=== PATIENT | male | born 1960 | race Caucasian/White ===

== ENCOUNTER 2017-05-17 16:52 | Inpatient (IN) | payer MEDICARE, BC ==
[2017-05-17] MEDS ORDERED: Sodium Chloride 0.9% 1,000 ML IV ONE (18:12)
--- NOTE | 2017-05-17 18:19 | EDM.PDOC ---
ED HPI GENERAL MEDICAL PROBLEM - General Chief Complaint: General Stated Complaint: dehydration Time Seen by Provider: 05/17/17 17:00 Source of Information: Reports: Patient, Significant Other History Limitations: Reports: No Limitations - History of Present Illness INITIAL COMMENTS - FREE TEXT/NARRATIVE: Patient brought in by to be evaluated for possible dehydration. Complains of nausea/vomiting two days ago. No current emesis but has no real appetite to eat/drink for last 3 days. No bowel changes. Mild cough. No body aches or acute pain. No one else sick at home. Denies sore throat/nasal congestion. Feels tired. No other acute complaints. History of CVA with residual right sided weakness. - Related Data Allergies Allergy/AdvReac Type Severity Reaction Status Date / Time dicloxacillin AdvReac Nausea Verified 04/17/17 09:11 Home Meds: Home Meds buPROPion [buPROPion XL] 300 mg PO DAILY 06/23/14 [History] Pantoprazole [ProTONIX] 40 mg PO DAILY 07/22/14 [History] Clopidogrel Bisulfate [Clopidogrel] 75 mg PO DAILY 04/15/17 [History] LORazepam 0.5 mg PO TID PRN 04/15/17 [History] Levothyroxine Sodium [Synthroid] 75 mcg PO ACBREAKFAST 04/15/17 [History] Metoprolol Succinate 25 mg PO DAILY 04/15/17 [History] Venlafaxine HCl [Venlafaxine ER] 150 mg PO DAILY 04/15/17 [History] atorvaSTATin [Lipitor] 40 mg PO BEDTIME 04/15/17 [History] traZODone 50 mg PO BEDTIME 04/15/17 [History] Lisinopril 20 mg PO DAILY #0 04/17/17 [Rx] Tamsulosin [Flomax] 0.4 mg PO BEDTIME #0 04/17/17 [Rx] Past Medical History Cardiovascular History: Reports: Arrhythmia, High Cholesterol, Hypertension Respiratory History: Reports: None Gastrointestinal History: Reports: GERD Genitourinary History: Reports: Chronic Renal Insuffiency, Renal Disease Musculoskeletal History: Reports: Other (See Below) Other Musculoskeletal History: Bursitis Neurological History: Reports: CVA Other Neuro History: 2013 Psychiatric History: Reports: Depression Endocrine/Metabolic History: Reports: Hypothyroidism - Infectious Disease History Infectious Disease History: Reports: Measles, Mumps Social & Family History - Tobacco Use Smoking Status *Q: Never Smoker Tobacco Use Within Last Twelve Months: Snuff/Dip Years of Tobacco use: 40 - Caffeine Use Caffeine Use: Reports: Coffee - Alcohol Use Days Per Week of Alcohol Use: 7 Number of Drinks Per Day: 2 Total Drinks Per Week: 14 - Recreational Drug Use Recreational Drug Use: No ED ROS GENERAL - Review of Systems Review Of Systems: See Below Constitutional: Reports: Weakness, Fatigue, Diaphoresis, Decreased Appetite. Denies: Fever, Chills, Night Sweats HEENT: Reports: No Symptoms Respiratory: Reports: Cough. Denies: Shortness of Breath, Wheezing, Pleuritic Chest Pain, Sputum, Hemoptysis Cardiovascular: Reports: No Symptoms GI/Abdominal: Reports: Decreased Appetite, Nausea, Vomiting. Denies: Abdominal Pain, Black Stool, Bloody Stool, Constipation, Diarrhea : Reports: No Symptoms Musculoskeletal: Reports: No Symptoms Skin: Reports: No Symptoms Neurological: Reports: Pre-Existing Deficit (right sided weakness from CVA), Other ( feels patient is not as alert as per usual. No obvious confusion. ) Psychiatric: Reports: No Symptoms Hematologic/Lymphatic: Reports: No Symptoms ED EXAM, GENERAL - Physical Exam Exam: See Below General Appearance: Alert, WD/WN, No Apparent Distress Eye Exam: Bilateral Eye: EOMI, PERRL Ears: Normal External Exam, Normal Canal, Hearing Grossly Normal, Normal TMs Nose: Normal Inspection. No: Nasal Swelling, Nasal Drainage Throat/Mouth: Normal Inspection, Normal Lips, Normal Oropharynx, Normal Voice, No Airway Compromise Head: Atraumatic, Normocephalic Neck: Normal Inspection, Supple, Non-Tender, Full Range of Motion Respiratory/Chest: No Respiratory Distress, No Accessory Muscle Use, Chest Non- Tender, Wheezing (faint wheeze noted right anterior lung mid-field) Cardiovascular: Regular Rate, Rhythm, No Murmur Peripheral Pulses: 2+: Radial (L), Radial (R) GI/Abdominal: Normal Bowel Sounds, Soft, Non-Tender, No Distention (Male) Exam: Deferred Rectal (Males) Exam: Deferred Back Exam: Normal Inspection Extremities: Normal Inspection, Non-Tender, No Pedal Edema, Normal Capillary Refill Neurological: Alert, Oriented, Sensory/Motor Deficit (slight right sided droop corner of mouth, slight decrease in strength right sided extremities) Psychiatric: Normal Affect, Normal Mood Skin Exam: Warm, Dry, Intact, Normal Color Course - Vital Signs Last Recorded V/S: Last Vital Signs Temp Pulse Resp 22 H 05/17/17 16:56 BP 107/86 05/17/17 16:56 Pulse Ox 98 05/17/17 16:56 - Orders/Labs/Meds Orders: Active Orders 24 hr Category Date Time Status Chest 2V [CR] Stat Exams 05/17/17 17:24 Taken UA W/MICROSCOPIC [URIN] Stat Lab 05/17/17 17:02 Uncollected Sodium Chloride 0.9% [Normal Saline] 1,000 ml Med 05/17/17 18:12 Ordered IV .BOLUS Medication Orders Sodium Chloride (Normal Saline) 1,000 mls @ 500 mls/hr IV .BOLUS ONE Stop: 05/17/17 20:11 Labs: Laboratory Tests 05/17/17 05/17/17 Range/Units 17:05 17:05 WBC 3.3 L (4.0-10.2) K/uL RBC 3.76 L (4.33-5.41) M/uL Hgb 13.3 D (13.1-16.8) g/dL Hct 38.6 L (39.0-49.0) % MCV 102.7 H (84.0-98.0) fL MCH 35.4 H (28.2-33.3) pg MCHC 34.5 (31.7-36.0) g/dL RDW 13.1 (11.2-14.1) % Plt Count 232 (150-350) K/uL Neut % (Auto) 84.7 H (45.0-80.0) % Lymph % (Auto) 10.7 (10.0-50.0) % [place] % (Auto) 4.3 (2.0-14.0) % Eos % (Auto) 0.0 (0.0-5.0) % Baso % (Auto) 0.3 (0.0-2.0) % Neut # (Auto) 2.77 (1.40-7.00) K/uL Lymph # (Auto) 0.35 L (0.50-3.50) K/uL [place] # (Auto) 0.14 (0.00-1.00) K/uL Eos # (Auto) 0.00 (0.00-0.50) K/uL Baso # (Auto) 0.01 (0.00-0.20) K/uL Sodium 135 L (136-145) mmol/L Potassium 3.8 (3.5-5.1) mmol/L Chloride 97 L (98-107) mmol/L Carbon Dioxide 26.4 (21.0-32.0) mmol/L BUN 28 H (7-18) mg/dL Creatinine 1.26 H (0.51-1.17) mg/dL Est Cr Clr Drug Dosing 69.29 mL/min Estimated GFR (MDRD) 59 mL/min Glucose 145 H (74-106) mg/dL Calcium 9.1 (8.5-10.1) mg/dL Total Bilirubin 0.8 (0.2-1.0) mg/dL AST 24 (15-37) U/L ALT 23 (12-78) U/L Alkaline Phosphatase 162 H (46-116) IU/L Total Protein 6.6 (6.4-8.2) g/dL Albumin 2.9 L (3.4-5.0) g/dL Meds: Medications Generic Name Dose Route Start Last Admin Trade Name Freq PRN Reason Stop Dose Admin Sodium Chloride 1,000 mls @ 500 mls/hr 05/17/17 18:12 Normal Saline IV 05/17/17 20:11 .BOLUS ONE - Radiology Interpretation Free Text/Narrative:: Chest xray performed. Probable infiltrate noted on right laterally. No previous films available for comparison. - Re-Assessments/Exams Free Text/Narrative Re-Assessment/Exam: 05/17/17 18:23 WBC low. NA/CL slightly low. BUN/Cr mildly elevated. Glu 145. Suspect dehydration. Will admit for rehydration and also IV antibiotics given infiltrate. Duo Nebs planned. O2 prn to keep O2 sats above 91%. Patient noted to have sats in high 80s. No history of previous O2 requirement. Departure - Departure Time of Disposition: 18:25 Disposition: Admitted As Inpatient 64 Clinical Impression: Dehydration, mild, Renal insufficiency, Snuff user Pneumonia Qualifiers: Pneumonia type: due to unspecified organism Laterality: right Lung location: middle lobe of lung Qualified Code(s): J18.1 - Lobar pneumonia, unspecified organism Nausea & vomiting Qualifiers: Vomiting type: unspecified Vomiting Intractability: non-intractable Qualified Code(s): R11.2 - Nausea with vomiting, unspecified - Discharge Information Forms: ED Department Discharge - Problem List & Annotations (1) Dehydration, mild SNOMED Code(s): 7969106873234 Code(s): E86.0 - DEHYDRATION Status: Acute Priority: High Current Visit : Yes Annotation/Comment:: IV NS ordered. (2) Nausea & vomiting SNOMED Code(s): 60571502 Code(s): R11.2 - NAUSEA WITH VOMITING, UNSPECIFIED Status: Acute Priority : Medium Current Visit: Yes Annotation/Comment:: Will treat with Zofran Qualifiers: Vomiting type: unspecified Vomiting Intractability: non-intractable Qualified Code(s): R11.2 - Nausea with vomiting, unspecified (3) Pneumonia SNOMED Code(s): 842906604 Code(s): J18.9 - PNEUMONIA, UNSPECIFIED ORGANISM Status: Acute Priority: High Current Visit: Yes Annotation/Comment:: Uncertain if viral vs bacterial in nature. Will initiate antibiotic coverage. Qualifiers: Pneumonia type: due to unspecified organism Laterality: right Lung location: middle lobe of lung Qualified Code(s): J18.1 - Lobar pneumonia, unspecified organism (4) Renal insufficiency SNOMED Code(s): 955644390, 833457257 Code(s): N28.9 - DISORDER OF KIDNEY AND URETER, UNSPECIFIED Status: Chronic Priority: Low Current Visit: Yes (5) Snuff user SNOMED Code(s): 435637677, 075914574 Code(s): Z78.9 - OTHER SPECIFIED HEALTH STATUS Status: Chronic Priority: Low Current Visit: No (6) History of CVA with residual deficit SNOMED Code(s): 821111872 Code(s): I69.30 - UNSPECIFIED SEQUELAE OF CEREBRAL INFARCTION Status: Chronic Priority: Low Current Visit: No - Problem List Review Problem List Initiated/Reviewed/Updated: Yes - My Orders Last 24 Hours: My Active Orders 05/17/17 17:02 UA W/MICROSCOPIC [URIN] Stat 05/17/17 17:24 Chest 2V [CR] Stat 05/17/17 18:12 Sodium Chloride 0.9% [Normal Saline] 1,000 ml IV .BOLUS - Assessment/Plan Admission H&P: Please use this note as an admission H&P Last 24 Hours: My Active Orders 05/17/17 17:02 UA W/MICROSCOPIC [URIN] Stat 05/17/17 17:24 Chest 2V [CR] Stat 05/17/17 18:12 Sodium Chloride 0.9% [Normal Saline] 1,000 ml IV .BOLUS Assessment:: Nausea/emesis/cough/dehydration. Plan: Admit for IV antibiotics, neb treatments, IV rehydration.
[2017-05-17] MEDS ORDERED: Bisacodyl 5 MG Tab PO PRN (18:58)
[2017-05-17] MEDS ORDERED: Acetaminophen 325 MG Tab PO PRN (18:58)
[2017-05-17] MEDS ORDERED: Ondansetron 4 MG Tab.DIS PO PRN (18:58)
[2017-05-17] MEDS ORDERED: Magnesium Hydroxide 400 MG/5 ML Susp 30 ML Cup PO PRN (18:58)
[2017-05-17] MEDS ORDERED: Ondansetron 4 MG/2 ML SDV IVPUSH PRN (18:58)
[2017-05-17] MEDS ORDERED: Promethazine 25 MG Tab PO PRN (19:07)
[2017-05-17] MEDS ORDERED: cefTRIAXone 1 GM in Sodium Chloride 0.9% 100 ML IV SCH (19:30)
[2017-05-17] MEDS: Albuterol/Ipratropium 3.0-0.5 MG/3 ML Neb Soln NEB SCH (19:36)
[2017-05-17] MEDS ORDERED: LORazepam 0.5 MG Tab PO PRN (20:28)
[2017-05-17] MEDS: Azithromycin 500 MG in Sodium Chloride 0.9% 250 ML IV SCH (20:59)
[2017-05-17] MEDS ORDERED: Tamsulosin 0.4 MG Cap.ER PO SCH (21:00)
[2017-05-17] MEDS: traZODone 50 MG Tab PO SCH (21:07)
[2017-05-17] MEDS: atorvaSTATin 40 MG Tab PO SCH (21:07)
[2017-05-17] MEDS: Sodium Chloride 0.9% 1,000 ML IV SCH (22:39)
[2017-05-18] MEDS ORDERED: methylPREDNISolone Sodium Succinate 125 MG/2 ML SDV IVPUSH ONE (01:21)
[2017-05-18] MEDS: Albuterol/Ipratropium 3.0-0.5 MG/3 ML Neb Soln NEB SCH ×4 (01:22→19:19)
[2017-05-18] MEDS ORDERED: Sodium Chloride 0.9% 1,000 ML IV ONE (01:25)
[2017-05-18 08:09] LABS: CHLORIDE,CL 106 mmol/L (98-107); SODIUM,NA 140 mmol/L (136-145)
--- NOTE | 2017-05-18 08:48 | PCM.PN ---
- General Info Date of Service: 05/18/17 Admission Dx/Problem (Free Text): 1. Pneumonia 2. Dehydration 3. Nausea/emesis with probable viral GE Functional Status: Reports: pain controlled, tolerating diet, ambulating (With walker). Denies: urinating, new symptoms, incentive spirometry (Although to be initiated today) Pain Score: 0 - Review of Systems General: Reports: Weakness (Stable chronic right-sided hemiparesis secondary to previous CVA), Chills (Yesterday evening), Night Sweats (Yesterday evening), Appetite (Good). Denies: Fever (Maximum fever of 37.4 yesterday with patient afebrile this morning) HEENT: Reports: no symptoms. Denies: dysphasia, ear pain, eye pain, headaches, sore throat, rhinitis, visual changes Pulmonary: Reports: cough, sputum (Minimal). Denies: shortness of breath, pleuritic chest pain, hemoptysis, wheezing Cardiovascular: Reports: Dyspnea on Exertion (Secondary to pneumonia). Denies: Chest Pain, Palpitations, Orthopnea, PND, Edema, Lightheadedness Gastrointestinal: Reports: Other (No bowel movement since admission). Denies: Abdominal pain, Constipation, Decreased appetite, Diarrhea, Difficulty swallowing, Flatus, Hematochezia, Melena, Nausea, Vomiting Genitourinary: Reports: no symptoms. Denies: dysuria, frequency, burning, urgency, incontinence, hematuria, flank pain Musculoskeletal: Reports: no symptoms. Denies: neck pain, shoulder pain, arm pain, back pain Skin: Reports: no symptoms. Denies: diaphoresis, pruritis, rash Neurological: Reports: Pre-Existing Deficit (Stable right-sided hemiparesis), Difficulty Walking (Walker use required secondary to CVA), Weakness (Stable right hemiparesis), Gait Disturbance (As above). Denies: Confusion, Dizziness, Headache, Numbness, Paresthesia, Syncope, Tingling, Change in Speech Psychiatric: Reports: no symptoms. Denies: confusion, depression, anxiety, agitation, hallucinations - Patient Data Vitals - most recent: Last Vital Signs Temp 36.4 C 05/18/17 06:58 Pulse 87 05/18/17 06:58 Resp 18 05/18/17 06:58 BP 114/74 05/18/17 06:58 Pulse Ox 98 05/18/17 06:58 Vital Signs - 24 hr 05/17/17 05/17/17 05/17/17 16:56 18:32 19:02 Temperature [ Oral] Pulse, 116 H Peripheral [ Right Pulse Oximetry] Respiratory 22 H 20 Rate Blood Pressure 107/86 100/66 [Right Upper Arm] O2 Sat by Pulse 98 98 95 Oximetry 05/17/17 05/18/17 05/18/17 19:05 01:05 04:00 Temperature [ 36.5 C 37.4 C 37.2 C Oral] Pulse, 93 90 Peripheral [ Right Pulse Oximetry] Respiratory 16 16 Rate Blood Pressure 85/51 L 109/69 [Right Upper Arm] O2 Sat by Pulse 93 L 94 L Oximetry 05/18/17 06:58 Temperature [ 36.4 C Oral] Pulse, 87 Peripheral [ Right Pulse Oximetry] Respiratory 18 Rate Blood Pressure 114/74 [Right Upper Arm] O2 Sat by Pulse 98 Oximetry Weight - most recent: 87.09 kg I&O - last 24 hours: Intake & Output 05/17/17 05/18/17 05/18/17 22:59 06:59 14:59 Intake Total 750 1600 360 Output Total 450 Balance 750 1600 -90 Imaging Impressions - last 24 hrs: Chest x-ray, PA and lateral, shows evidence of moderate COPD changes with mild right lower lobe and right middle lobe pulmonary infiltrates. No pneumothorax, cardiomegaly, CHF, etc. Probable pulmonary hypertension secondary to his COPD with mild osteoarthritic changes also noted Lab Results last 24 hrs: Laboratory Results - last 24 hr 05/18/17 05/18/17 05/18/17 Range/Units 01:29 03:40 07:40 WBC 7.1 (4.0-10.2) K/uL RBC 3.06 L (4.33-5.41) M/uL Hgb 10.7 L D (13.1-16.8) g/dL Hct 32.0 L (39.0-49.0) % MCV 104.6 H (84.0-98.0) fL MCH 35.0 H (28.2-33.3) pg MCHC 33.4 (31.7-36.0) g/dL RDW 13.1 (11.2-14.1) % Plt Count 177 (150-350) K/uL Neut % (Auto) 92.9 H (45.0-80.0) % Lymph % (Auto) 4.7 L (10.0-50.0) % [place] % (Auto) 2.4 (2.0-14.0) % Eos % (Auto) 0.0 (0.0-5.0) % Baso % (Auto) 0.0 (0.0-2.0) % Neut # (Auto) 6.58 (1.40-7.00) K/uL Lymph # (Auto) 0.33 L (0.50-3.50) K/uL [place] # (Auto) 0.17 (0.00-1.00) K/uL Eos # (Auto) 0.00 (0.00-0.50) K/uL Baso # (Auto) 0.00 (0.00-0.20) K/uL Sodium (136-145) mmol/L Potassium (3.5-5.1) mmol/L Chloride (98-107) mmol/L Carbon Dioxide (21.0-32.0) mmol/L BUN (7-18) mg/dL Creatinine (0.51-1.17) mg/dL Est Cr Clr Drug Dosing mL/min Estimated GFR (MDRD) mL/min Glucose (74-106) mg/dL Lactic Acid 2.2 H (0.4-2.0) mmol/L Calcium (8.5-10.1) mg/dL Total Bilirubin (0.2-1.0) mg/dL AST (15-37) U/L ALT (12-78) U/L Alkaline Phosphatase (46-116) IU/L Total Protein (6.4-8.2) g/dL Albumin (3.4-5.0) g/dL Specimen Type Urincc Urine Color Dark yellow Urine Appearance Clear Urine pH 6.0 (5.0-9.0) Ur Specific [place] <= 1.005 (1.005-1.030) Urine Protein Negative (NEGATIVE) mg/dL Urine Glucose (UA) Negative (NEGATIVE) mg/dL Urine Ketones Negative (NEGATIVE) mg/dL Urine Occult Blood Negative (NEGATIVE) Urine Nitrite Negative (NEGATIVE) Urine Bilirubin Negative (NEGATIVE) Urine Urobilinogen 0.2 (0.2-1.0) E.U./dL Ur Leukocyte Esterase Negative (NEGATIVE) Urine RBC 0-5 /HPF Urine WBC 0-5 /HPF Ur Epithelial Cells Rare /LPF Urine Bacteria Rare (NONE TO FEW) /HPF 05/18/17 Range/Units 07:40 WBC (4.0-10.2) K/uL RBC (4.33-5.41) M/uL Hgb (13.1-16.8) g/dL Hct (39.0-49.0) % MCV (84.0-98.0) fL MCH (28.2-33.3) pg MCHC (31.7-36.0) g/dL RDW (11.2-14.1) % Plt Count (150-350) K/uL Neut % (Auto) (45.0-80.0) % Lymph % (Auto) (10.0-50.0) % [place] % (Auto) (2.0-14.0) % Eos % (Auto) (0.0-5.0) % Baso % (Auto) (0.0-2.0) % Neut # (Auto) (1.40-7.00) K/uL Lymph # (Auto) (0.50-3.50) K/uL [place] # (Auto) (0.00-1.00) K/uL Eos # (Auto) (0.00-0.50) K/uL Baso # (Auto) (0.00-0.20) K/uL Sodium 140 (136-145) mmol/L Potassium 4.4 (3.5-5.1) mmol/L Chloride 106 (98-107) mmol/L Carbon Dioxide 25.9 (21.0-32.0) mmol/L BUN 22 H (7-18) mg/dL Creatinine 1.08 (0.51-1.17) mg/dL Est Cr Clr Drug Dosing 80.83 mL/min Estimated GFR (MDRD) > 60 mL/min Glucose 147 H (74-106) mg/dL Lactic Acid (0.4-2.0) mmol/L Calcium 8.1 L (8.5-10.1) mg/dL Total Bilirubin 0.6 (0.2-1.0) mg/dL AST 23 (15-37) U/L ALT 19 (12-78) U/L Alkaline Phosphatase 115 (46-116) IU/L Total Protein 5.7 L (6.4-8.2) g/dL Albumin 2.3 L (3.4-5.0) g/dL Specimen Type Urine Color Urine Appearance Urine pH (5.0-9.0) Ur Specific [place] (1.005-1.030) Urine Protein (NEGATIVE) mg/dL Urine Glucose (UA) (NEGATIVE) mg/dL Urine Ketones (NEGATIVE) mg/dL Urine Occult Blood (NEGATIVE) Urine Nitrite (NEGATIVE) Urine Bilirubin (NEGATIVE) Urine Urobilinogen (0.2-1.0) E.U./dL Ur Leukocyte Esterase (NEGATIVE) Urine RBC /HPF Urine WBC /HPF Ur Epithelial Cells /LPF Urine Bacteria (NONE TO FEW) /HPF Laboratory Tests 05/17/17 05/17/17 05/18/17 Range/Units 17:05 17:05 01:29 WBC 3.3 L (4.0-10.2) K/uL RBC 3.76 L (4.33-5.41) M/uL Hgb 13.3 D (13.1-16.8) g/dL Hct 38.6 L (39.0-49.0) % MCV 102.7 H (84.0-98.0) fL MCH 35.4 H (28.2-33.3) pg MCHC 34.5 (31.7-36.0) g/dL RDW 13.1 (11.2-14.1) % Plt Count 232 (150-350) K/uL Neut % (Auto) 84.7 H (45.0-80.0) % Lymph % (Auto) 10.7 (10.0-50.0) % [place] % (Auto) 4.3 (2.0-14.0) % Eos % (Auto) 0.0 (0.0-5.0) % Baso % (Auto) 0.3 (0.0-2.0) % Neut # (Auto) 2.77 (1.40-7.00) K/uL Lymph # (Auto) 0.35 L (0.50-3.50) K/uL [place] # (Auto) 0.14 (0.00-1.00) K/uL Eos # (Auto) 0.00 (0.00-0.50) K/uL Baso # (Auto) 0.01 (0.00-0.20) K/uL Sodium 135 L (136-145) mmol/L Potassium 3.8 (3.5-5.1) mmol/L Chloride 97 L (98-107) mmol/L Carbon Dioxide 26.4 (21.0-32.0) mmol/L BUN 28 H (7-18) mg/dL Creatinine 1.26 H (0.51-1.17) mg/dL Est Cr Clr Drug Dosing 69.29 mL/min Estimated GFR (MDRD) 59 mL/min Glucose 145 H (74-106) mg/dL Lactic Acid 2.2 H (0.4-2.0) mmol/L Calcium 9.1 (8.5-10.1) mg/dL Total Bilirubin 0.8 (0.2-1.0) mg/dL AST 24 (15-37) U/L ALT 23 (12-78) U/L Alkaline Phosphatase 162 H (46-116) IU/L Total Protein 6.6 (6.4-8.2) g/dL Albumin 2.9 L (3.4-5.0) g/dL Specimen Type Urine Color Urine Appearance Urine pH (5.0-9.0) Ur Specific [place] (1.005-1.030) Urine Protein (NEGATIVE) mg/dL Urine Glucose (UA) (NEGATIVE) mg/dL Urine Ketones (NEGATIVE) mg/dL Urine Occult Blood (NEGATIVE) Urine Nitrite (NEGATIVE) Urine Bilirubin (NEGATIVE) Urine Urobilinogen (0.2-1.0) E.U./dL Ur Leukocyte Esterase (NEGATIVE) Urine RBC /HPF Urine WBC /HPF Ur Epithelial Cells /LPF Urine Bacteria (NONE TO FEW) /HPF 05/18/17 05/18/17 05/18/17 Range/Units 03:40 07:40 07:40 WBC 7.1 (4.0-10.2) K/uL RBC 3.06 L (4.33-5.41) M/uL Hgb 10.7 L D (13.1-16.8) g/dL Hct 32.0 L (39.0-49.0) % MCV 104.6 H (84.0-98.0) fL MCH 35.0 H (28.2-33.3) pg MCHC 33.4 (31.7-36.0) g/dL RDW 13.1 (11.2-14.1) % Plt Count 177 (150-350) K/uL Neut % (Auto) 92.9 H (45.0-80.0) % Lymph % (Auto) 4.7 L (10.0-50.0) % [place] % (Auto) 2.4 (2.0-14.0) % Eos % (Auto) 0.0 (0.0-5.0) % Baso % (Auto) 0.0 (0.0-2.0) % Neut # (Auto) 6.58 (1.40-7.00) K/uL Lymph # (Auto) 0.33 L (0.50-3.50) K/uL [place] # (Auto) 0.17 (0.00-1.00) K/uL Eos # (Auto) 0.00 (0.00-0.50) K/uL Baso # (Auto) 0.00 (0.00-0.20) K/uL Sodium 140 (136-145) mmol/L Potassium 4.4 (3.5-5.1) mmol/L Chloride 106 (98-107) mmol/L Carbon Dioxide 25.9 (21.0-32.0) mmol/L BUN 22 H (7-18) mg/dL Creatinine 1.08 (0.51-1.17) mg/dL Est Cr Clr Drug Dosing 80.83 mL/min Estimated GFR (MDRD) > 60 mL/min Glucose 147 H (74-106) mg/dL Lactic Acid (0.4-2.0) mmol/L Calcium 8.1 L (8.5-10.1) mg/dL Total Bilirubin 0.6 (0.2-1.0) mg/dL AST 23 (15-37) U/L ALT 19 (12-78) U/L Alkaline Phosphatase 115 (46-116) IU/L Total Protein 5.7 L (6.4-8.2) g/dL Albumin 2.3 L (3.4-5.0) g/dL Specimen Type Urincc Urine Color Dark yellow Urine Appearance Clear Urine pH 6.0 (5.0-9.0) Ur Specific [place] <= 1.005 (1.005-1.030) Urine Protein Negative (NEGATIVE) mg/dL Urine Glucose (UA) Negative (NEGATIVE) mg/dL Urine Ketones Negative (NEGATIVE) mg/dL Urine Occult Blood Negative (NEGATIVE) Urine Nitrite Negative (NEGATIVE) Urine Bilirubin Negative (NEGATIVE) Urine Urobilinogen 0.2 (0.2-1.0) E.U./dL Ur Leukocyte Esterase Negative (NEGATIVE) Urine RBC 0-5 /HPF Urine WBC 0-5 /HPF Ur Epithelial Cells Rare /LPF Urine Bacteria Rare (NONE TO FEW) /HPF [place] Results last 24 hrs: Sputum yet to be obtained Med Orders - Current: Current Medications Acetaminophen (Tylenol) 650 mg PO Q4H PRN PRN Reason: Pain (Mild 1-3)/fever Last Admin: 05/18/17 01:22 Dose: 650 mg Albuterol/Ipratropium (Duoneb 3.0-0.5 Mg/3 Ml) 3 ml NEB Q6HRRT [facility] Last Admin: 05/18/17 08:17 Dose: 3 ml Atorvastatin Calcium (Lipitor) 40 mg PO BEDTIME [facility] Last Admin: 05/17/17 21:07 Dose: 40 mg Bisacodyl (Dulcolax) 5 mg PO DAILY PRN PRN Reason: Constipation Ceftriaxone Sodium 1 gm/ (Sodium Chloride) 100 mls @ 200 mls/hr IV Q24H [facility] Last Admin: 05/17/17 19:36 Dose: 200 mls/hr Azithromycin 500 mg/ Sodium (Chloride) 250 mls @ 250 mls/hr IV Q24H [facility] Last Admin: 05/17/17 20:59 Dose: 250 mls/hr Sodium Chloride (Normal Saline) 1,000 mls @ 125 mls/hr IV ASDIRECTED [facility] Last Admin: 05/17/17 22:39 Dose: 125 mls/hr Lisinopril (Prinivil) 20 mg PO DAILY [facility] Lorazepam (Ativan) 0.5 mg PO TID PRN PRN Reason: Agitation Magnesium Hydroxide (Milk Of Magnesia) 30 ml PO Q12H PRN PRN Reason: Constipation Promethazine HCl (Phenergan) 25 mg PO Q6H PRN PRN Reason: Nausea/Vomiting Tamsulosin HCl (Flomax) 0.4 mg PO BEDTIME [facility] Last Admin: 05/17/17 21:06 Dose: 0.4 mg Trazodone HCl (Trazodone) 50 mg PO BEDTIME [facility] Last Admin: 05/17/17 21:07 Dose: 50 mg Discontinued Medications Sodium Chloride (Normal Saline) 1,000 mls @ 500 mls/hr IV .BOLUS ONE Stop: 05/17/17 20:11 Last Admin: 05/17/17 18:33 Dose: 500 mls/hr Sodium Chloride (Normal Saline) 1,000 mls @ 500 mls/hr IV .BOLUS ONE Stop: 05/18/17 03:24 Last Admin: 05/18/17 01:35 Dose: 500 mls/hr Methylprednisolone Sodium Succinate (Solu-Medrol) 125 mg IVPUSH ONETIME ONE Stop: 05/18/17 01:22 Last Admin: 05/18/17 01:35 Dose: 125 mg Ondansetron HCl (Zofran Odt) 4 mg PO Q6H PRN PRN Reason: Nausea/Vomiting Ondansetron HCl (Zofran) 4 mg IVPUSH Q6H PRN PRN Reason: Nausea/Vomiting - Exam Quality Assessment: supplemental oxygen, DVT prophylaxis. No: central line/PICC , urine catheter, skin breakdown, restraints General: alert, oriented, cooperative, no acute distress HEENT: Pupils equal, Pupils reactive, EOMI, Mucous membr. moist/pink Neck: supple, trachea midline, no JVD, no thyromegaly. No: lymphadenopathy Lungs: Normal respiratory effort, Rales (Moderate bilateral basilar rales). No : Rhonchi, Rub, Stridor, Wheezing Cardiovascular: Regular Rate, Regular Rhythm, No Murmurs. No: Gallops, Rubs Abdomen: bowel sounds present, soft, no tenderness, no distension. No: guarding , CVA tenderness (Male) Exam: Deferred Back Exam: Normal Inspection, Full Range of Motion. No: CVA Tenderness (L), CVA Tenderness (R), Muscle Spasm Peripheral Pulses: 2+: Radial (L), Radial (R), Dorsalis Pedis (L), Dorsalis Pedis (R) Skin: warm, dry, intact. No: rash, ecchymosis Neurological: no new focal deficit, other (Stable moderate right-sided hemiparesis) Psy/Mental Status: alert, normal affect, normal mood. No: agitated, suicidal ideation, homicidal ideation, hallucinations - Problem List & Annotations (1) Pneumonia SNOMED Code(s): 528444031 Code(s): J18.9 - PNEUMONIA, UNSPECIFIED ORGANISM Status: Acute Priority: High Current Visit: Yes Qualifiers: Pneumonia type: due to unspecified organism Laterality: right Lung location: middle lobe of lung Qualified Code(s): J18.1 - Lobar pneumonia, unspecified organism Annotation/Comment:: Sputum specimen has yet to be collected. Continue IV Rocephin, however increased to a every 12 hour basis. Continue IV Zithromax for now. Consider additional IV clindamycin or vancomycin therapy, if symptoms remain refractory to therapy and/or lactic acid remains elevated. Dr. Zaragoza resumes care in the a.m. (2) Anemia SNOMED Code(s): 679178707 Code(s): D64.9 - ANEMIA, UNSPECIFIED Status: Acute Priority: Medium Current Visit: Yes Onset Date: 05/18/17 Qualifiers: Anemia type: unspecified type Qualified Code(s): D64.9 - Anemia, unspecified Annotation/Comment:: Newly diagnosed mild to moderate moderate anemia today possibly secondary to rehydration effect with no evidence of abdominal pain, acute GI bleed, etc.. Note history of peptic reflux disease with workup including a medical, iron studies, H. pylori, vitamin B-12, etc. Further workup depending on his clinical course. (3) Hyperglycemia SNOMED Code(s): 30468810 Code(s): R73.9 - HYPERGLYCEMIA, UNSPECIFIED Status: Acute Priority: Medium Current Visit: Yes Onset Date: ~05/17/17 Annotation/Comment:: No previous history of diabetes. Glycosylated hemoglobin was normal at 5.1 mg percent on 04/20/17. Patient is already on a heart healthy diet secondary to his hyperlipidemia and previous CVA (4) Hypertension SNOMED Code(s): 64379726 Code(s): I10 - ESSENTIAL (PRIMARY) HYPERTENSION Status: Chronic Priority : Medium Current Visit: Yes Qualifiers: Hypertension type: essential hypertension Qualified Code(s): I10 - Essential (primary) hypertension Annotation/Comment:: Blood pressures somewhat low yesterday however significantly improved this morning after IV hydration. Continue IV fluids for now. His home medications will be resumed with caution with medication list reconciliation conducted by me this morning (5) Peptic reflux disease SNOMED Code(s): 38177322 Code(s): K21.9 - GASTRO-ESOPHAGEAL REFLUX DISEASE WITHOUT ESOPHAGITIS Status: Chronic Priority: Medium Current Visit: Yes Annotation/Comment:: Stable by history with further workup as above. Initiate high-dose IV Protonix therapy secondary to Lovenox therapy as below. Note that patient did already receive one dose of IV Solu-Medrol yesterday. Patient may benefit from EGD and/ or additional colonoscopy secondary to his anemia as above (6) Mixed anxiety depressive disorder SNOMED Code(s): 468862401 Code(s): F41.8 - OTHER SPECIFIED ANXIETY DISORDERS Status: Chronic Priority: Medium Current Visit: Yes Annotation/Comment:: Stable by history. Resume home meds as above (7) Lactic acid increased SNOMED Code(s): 06846546 Code(s): E87.2 - ACIDOSIS Status: Acute Priority: High Current Visit: Yes Onset Date: 05/18/17 Annotation/Comment:: Somewhat increased lactic acid this morning. Repeat in the a.m. Pneumonia, clinically improving, although slowly. No clinical evidence of sepsis to this point with repeat lactic acid tomorrow. (8) Hypoalbuminemia SNOMED Code(s): 877755242 Code(s): E88.09 - OTH DISORDERS OF PLASMA-PROTEIN METABOLISM, NEC Status: Acute Priority: Medium Current Visit: Yes Onset Date: 05/18/17 Annotation/Comment:: Newly diagnosed. Add high-protein Glucerna supplements as snacks with close follow-up by his regular provider on an outpatient basis (9) Hypocalcemia SNOMED Code(s): 2258182 Code(s): E83.51 - HYPOCALCEMIA Status: Acute Priority: Medium Current Visit: Yes Onset Date: 05/18/17 Annotation/Comment:: Observe for now. OTC Tums at bedtime for now secondary to his history of peptic ulcer disease (10) Dehydration, mild SNOMED Code(s): 4540996407700 Code(s): E86.0 - DEHYDRATION Status: Acute Priority: High Current Visit : Yes Onset Date: 05/17/17 Annotation/Comment:: Continue IV fluids as above. (11) Nausea & vomiting SNOMED Code(s): 26005967 Code(s): R11.2 - NAUSEA WITH VOMITING, UNSPECIFIED Status: Acute Priority : Medium Current Visit: Yes Onset Date: 05/17/17 Qualifiers: Vomiting type: unspecified Vomiting Intractability: non-intractable Qualified Code(s): R11.2 - Nausea with vomiting, unspecified Annotation/Comment:: Resolved this morning. Patient on when necessary Phenergan with change to Zofran secondary to his borderline constipation (12) Renal insufficiency SNOMED Code(s): 382910803, 026103972 Code(s): N28.9 - DISORDER OF KIDNEY AND URETER, UNSPECIFIED Status: Chronic Priority: Medium Current Visit: Yes Annotation/Comment:: BUN/ creatinine normal today with IV hydration. Repeat labs in the a.m. (13) History of CVA with residual deficit SNOMED Code(s): 527428996 Code(s): I69.30 - UNSPECIFIED SEQUELAE OF CEREBRAL INFARCTION Status: Chronic Priority: Medium Current Visit: No Annotation/Comment:: Initiate incentive spirometry secondary to pneumonia and previous history of CVA. Neurological status stable by patient history. PT and OT consultation secondary to some generalized weakness from current infection. Secondary to his previous CVA he is at significant risk for DVT with subcutaneous Lovenox as DVT prophylaxis to be initiated this morning with caution secondary to his anemia as above. His previous Plavix therapy will be held for now with resumption at discharge (14) Snuff user SNOMED Code(s): 591005337, 589526933 Code(s): Z78.9 - OTHER SPECIFIED HEALTH STATUS Status: Chronic Priority: Medium Current Visit: No Annotation/Comment:: Tobacco cessation information to be provided at discharge with use of Nicorette gum beneficial in this patient (15) COPD (chronic obstructive pulmonary disease) SNOMED Code(s): 59643735 Code(s): J44.9 - CHRONIC OBSTRUCTIVE PULMONARY DISEASE, UNSPECIFIED Status : Acute Priority: Medium Current Visit: Yes Onset Date: ~05/18/17 Qualifiers: COPD type: COPD with acute lower respiratory infection Qualified Code(s): J44.0 - Chronic obstructive pulmonary disease with acute lower respiratory infection Annotation/Comment:: Evidence of COPD by chest x-ray. Patient may benefit from PFTs after resolution of current infection. Continue nebulizer therapy with additional Mucinex DM as a mucolytic agent. (16) Hyperlipidemia SNOMED Code(s): 14166740 Code(s): E78.5 - HYPERLIPIDEMIA, UNSPECIFIED Status: Acute Priority: Medium Current Visit: Yes Qualifiers: Hyperlipidemia type: unspecified Qualified Code(s): E78.5 - Hyperlipidemia , unspecified Annotation/Comment:: Currently under therapy - Problem List Review Problem List Initiated/Reviewed/Updated: Yes - Assessment Assessment:: As above - Plan Plan:: As above. Extensive precautions were given to the patient, who is in agreement with the treatment plan. Dr. Zaragoza resumes care in the a.m. with probable additional 2-3 days of hospitalization
[2017-05-18] MEDS ORDERED: Albuterol/Ipratropium 3.0-0.5 MG/3 ML Neb Soln NEB PRN (09:21)
[2017-05-18] MEDS ORDERED: LORazepam 0.5 MG Tab PO PRN (09:25)
[2017-05-18] MEDS ORDERED: Albuterol 0.083% 2.5 MG/3 ML Neb Soln INH PRN (09:30)
[2017-05-18] MEDS: cefTRIAXone 1 GM in Sodium Chloride 0.9% 100 ML IV SCH ×2 (09:52→21:37)
[2017-05-18] MEDS: Enoxaparin 40 MG/0.4 ML Syringe SUBCUT SCH (09:52)
[2017-05-18] MEDS: Pantoprazole 40 MG Vial IVPUSH SCH ×2 (09:52→21:37)
[2017-05-18] MEDS: Dextromethorphan/guaiFENesin 600-30 MG Tab.ER PO SCH ×2 (09:52→18:03)
[2017-05-18] MEDS ORDERED: Ondansetron 4 MG/2 ML SDV IVPUSH PRN (10:00)
[2017-05-18] MEDS: Sodium Chloride 0.9% 1,000 ML IV SCH ×2 (10:00→19:18)
[2017-05-18] MEDS: Folic Acid 1 MG Tab PO SCH (11:49)
[2017-05-18] MEDS: Ferrous Sulfate 325 MG Tab PO SCH (18:03)
[2017-05-18] MEDS: traZODone 50 MG Tab PO SCH (19:14)
[2017-05-18] MEDS: Lisinopril 20 MG Tab PO SCH (19:14)
[2017-05-18] MEDS: Azithromycin 500 MG in Sodium Chloride 0.9% 250 ML IV SCH (19:14)
[2017-05-18] MEDS: Calcium Carbonate 750 MG Tab.Chew PO SCH (19:19)
[2017-05-18] MEDS: Tamsulosin 0.4 MG Cap.ER PO SCH (19:19)
[2017-05-18] MEDS: atorvaSTATin 40 MG Tab PO SCH (19:19)
[2017-05-18] MEDS ORDERED: Non-Formulary Medication 1 Each (Lisinopril [Lisinopril] 20 MG) PO SCH (20:00)
[2017-05-18] MEDS ORDERED: traZODone 50 MG Tab PO SCH (20:00)
[2017-05-18] MEDS ORDERED: atorvaSTATin 40 MG Tab PO SCH (20:00)
[2017-05-19] MEDS: Albuterol/Ipratropium 3.0-0.5 MG/3 ML Neb Soln NEB SCH ×4 (02:14→19:25)
[2017-05-19] MEDS: Sodium Chloride 0.9% 1,000 ML IV SCH (04:58)
[2017-05-19] MEDS ORDERED: Levothyroxine 75 MCG Tab PO SCH (07:30)
[2017-05-19] MEDS: buPROPion 150 MG Tab.ER PO SCH (07:50)
[2017-05-19] MEDS: Metoprolol Succinate 25 MG Tab.ER PO SCH (07:50)
[2017-05-19] MEDS: Venlafaxine 75 MG Cap.ER PO SCH (07:50)
[2017-05-19] MEDS: Dextromethorphan/guaiFENesin 600-30 MG Tab.ER PO SCH ×2 (07:50→18:22)
[2017-05-19] MEDS: Lisinopril 20 MG Tab PO SCH (07:51)
[2017-05-19] MEDS: Levothyroxine 75 MCG Tab PO SCH (07:51)
[2017-05-19] MEDS: Folic Acid 1 MG Tab PO SCH (07:51)
[2017-05-19] MEDS: Enoxaparin 40 MG/0.4 ML Syringe SUBCUT SCH (07:52)
[2017-05-19 07:56] LABS: CHLORIDE,CL 109 mmol/L (98-107); SODIUM,NA 142 mmol/L (136-145)
[2017-05-19] MEDS ORDERED: Sodium Chloride 0.9% 10 ML Syringe FLUSH PRN (08:03)
[2017-05-19] MEDS: Pantoprazole 40 MG Vial IVPUSH SCH ×2 (09:16→20:58)
[2017-05-19] MEDS: cefTRIAXone 1 GM in Sodium Chloride 0.9% 100 ML IV SCH ×2 (09:17→20:58)
[2017-05-19] MEDS ORDERED: Furosemide 20 MG/2 ML VIAL IVPUSH ONE (11:49)
[2017-05-19] MEDS ORDERED: Pantoprazole 40 MG Vial IVPUSH ONE (14:17)
--- NOTE | 2017-05-19 14:29 | PCM.PN ---
- General Info Date of Service: 05/19/17 Admission Dx/Problem (Free Text): 1. Pneumonia 2. Dehydration 3. Nausea/emesis with probable viral GE Functional Status: Reports: pain controlled, tolerating diet, ambulating, urinating - Review of Systems General: Reports: No Symptoms HEENT: Reports: no symptoms Pulmonary: Reports: no symptoms Cardiovascular: Reports: No Symptoms Gastrointestinal: Reports: Abdominal pain. Denies: Diarrhea, Nausea, Vomiting Genitourinary: Reports: no symptoms Musculoskeletal: Reports: no symptoms Skin: Reports: no symptoms Neurological: Reports: No Symptoms Psychiatric: Reports: no symptoms - Patient Data Vitals - most recent: Last Vital Signs Temp 36.7 C 05/19/17 12:00 Pulse 81 05/19/17 12:00 Resp 22 H 05/19/17 12:00 BP 147/80 H 05/19/17 12:00 Pulse Ox 100 05/19/17 12:00 Weight - most recent: 89.176 kg I&O - last 24 hours: Intake & Output 05/18/17 05/19/17 05/19/17 22:59 06:59 14:59 Intake Total 1626 1595 384 Output Total 150 1000 950 Balance 1476 595 -566 Lab Results last 24 hrs: Laboratory Results - last 24 hr 05/18/17 05/19/17 05/19/17 Range/Units 01:29 07:20 07:20 WBC 4.6 (4.0-10.2) K/uL RBC 2.77 L (4.33-5.41) M/uL Hgb 9.8 L (13.1-16.8) g/dL Hct 29.2 L (39.0-49.0) % MCV 105.4 H (84.0-98.0) fL MCH 35.4 H (28.2-33.3) pg MCHC 33.6 (31.7-36.0) g/dL RDW 13.0 (11.2-14.1) % Plt Count 179 (150-350) K/uL Neut % (Auto) 84.7 H (45.0-80.0) % Lymph % (Auto) 8.0 L (10.0-50.0) % [place] % (Auto) 7.1 (2.0-14.0) % Eos % (Auto) 0.2 (0.0-5.0) % Baso % (Auto) 0.0 (0.0-2.0) % Neut # (Auto) 3.93 (1.40-7.00) K/uL Lymph # (Auto) 0.37 L (0.50-3.50) K/uL [place] # (Auto) 0.33 (0.00-1.00) K/uL Eos # (Auto) 0.01 (0.00-0.50) K/uL Baso # (Auto) 0.00 (0.00-0.20) K/uL Sodium 142 (136-145) mmol/L Potassium 3.2 L (3.5-5.1) mmol/L Chloride 109 H (98-107) mmol/L Carbon Dioxide 24.8 (21.0-32.0) mmol/L BUN 15 (7-18) mg/dL Creatinine 0.93 (0.51-1.17) mg/dL Est Cr Clr Drug Dosing 94.00 mL/min Estimated GFR (MDRD) > 60 mL/min Glucose 107 H (74-106) mg/dL Lactic Acid (0.4-2.0) mmol/L Calcium 7.9 L (8.5-10.1) mg/dL Magnesium 1.5 L (1.8-2.4) mg/dL Transferrin 140 L (203-362) mg/dL Total Bilirubin 0.3 (0.2-1.0) mg/dL AST 19 (15-37) U/L ALT 18 (12-78) U/L Alkaline Phosphatase 102 (46-116) IU/L Total Protein 5.4 L (6.4-8.2) g/dL Albumin 2.1 L (3.4-5.0) g/dL 05/19/17 Range/Units 07:20 WBC (4.0-10.2) K/uL RBC (4.33-5.41) M/uL Hgb (13.1-16.8) g/dL Hct (39.0-49.0) % MCV (84.0-98.0) fL MCH (28.2-33.3) pg MCHC (31.7-36.0) g/dL RDW (11.2-14.1) % Plt Count (150-350) K/uL Neut % (Auto) (45.0-80.0) % Lymph % (Auto) (10.0-50.0) % [place] % (Auto) (2.0-14.0) % Eos % (Auto) (0.0-5.0) % Baso % (Auto) (0.0-2.0) % Neut # (Auto) (1.40-7.00) K/uL Lymph # (Auto) (0.50-3.50) K/uL [place] # (Auto) (0.00-1.00) K/uL Eos # (Auto) (0.00-0.50) K/uL Baso # (Auto) (0.00-0.20) K/uL Sodium (136-145) mmol/L Potassium (3.5-5.1) mmol/L Chloride (98-107) mmol/L Carbon Dioxide (21.0-32.0) mmol/L BUN (7-18) mg/dL Creatinine (0.51-1.17) mg/dL Est Cr Clr Drug Dosing mL/min Estimated GFR (MDRD) mL/min Glucose (74-106) mg/dL Lactic Acid 0.7 (0.4-2.0) mmol/L Calcium (8.5-10.1) mg/dL Magnesium (1.8-2.4) mg/dL Transferrin (203-362) mg/dL Total Bilirubin (0.2-1.0) mg/dL AST (15-37) U/L ALT (12-78) U/L Alkaline Phosphatase (46-116) IU/L Total Protein (6.4-8.2) g/dL Albumin (3.4-5.0) g/dL [place] Results last 24 hrs: Microbiology 05/19/17 09:30 Stool Occult Blood (TORIN) - Final Stool / Feces 05/18/17 10:30 Gram Stain - Final Sputum - Expectorated Med Orders - Current: Current Medications Acetaminophen (Tylenol) 650 mg PO Q4H PRN PRN Reason: Pain (Mild 1-3)/fever Last Admin: 05/18/17 01:22 Dose: 650 mg Albuterol (Proventil Neb Soln) 2.5 mg INH Q2H PRN PRN Reason: SHORTNESS OF BREATH Albuterol/Ipratropium (Duoneb 3.0-0.5 Mg/3 Ml) 3 ml NEB Q6HRRT [facility] Last Admin: 05/19/17 07:51 Dose: 3 ml Albuterol/Ipratropium (Duoneb 3.0-0.5 Mg/3 Ml) 3 ml NEB Q4HRRT PRN PRN Reason: Dyspnea Atorvastatin Calcium (Lipitor) 40 mg PO BEDTIME [facility] Last Admin: 05/18/17 19:19 Dose: 40 mg Bisacodyl (Dulcolax) 5 mg PO DAILY PRN PRN Reason: Constipation Bupropion HCl (Wellbutrin Xl) 300 mg PO DAILY [facility] Last Admin: 05/19/17 07:50 Dose: 300 mg Calcium Carbonate/Glycine (Tums Extra Strength) 1,500 mg PO BEDTIME [facility] Last Admin: 05/18/17 19:19 Dose: 1,500 mg Ferrous Sulfate (Ferrous Sulfate) 650 mg PO QPM [facility] Last Admin: 05/18/17 18:03 Dose: 650 mg Folic Acid (Folic Acid) 1 mg PO DAILY [facility] Last Admin: 05/19/17 07:51 Dose: 1 mg Guaifenesin/Dextromethorphan (Mucinex Dm Er 600-30 Mg) 1 tab PO BID [facility] Last Admin: 05/19/17 07:50 Dose: 1 tab Azithromycin 500 mg/ Sodium (Chloride) 250 mls @ 250 mls/hr IV Q24H [facility] Last Admin: 05/18/17 19:14 Dose: 250 mls/hr Ceftriaxone Sodium 1 gm/ (Sodium Chloride) 100 mls @ 200 mls/hr IV Q12H [facility] Last Admin: 05/19/17 09:17 Dose: 200 mls/hr Levothyroxine Sodium (Levothyroxine) 75 mcg PO ACBREAKFAST [facility] Last Admin: 05/19/17 07:51 Dose: 75 mcg Lisinopril (Prinivil) 20 mg PO DAILY [facility] Last Admin: 05/19/17 07:51 Dose: 20 mg Lorazepam (Ativan) 0.5 mg PO TID PRN PRN Reason: Agitation Magnesium Hydroxide (Milk Of Magnesia) 30 ml PO Q12H PRN PRN Reason: Constipation Metoprolol Succinate (Toprol Xl) 25 mg PO DAILY [facility] Last Admin: 05/19/17 07:50 Dose: 25 mg Ondansetron HCl (Zofran) 4 mg IVPUSH Q6H PRN PRN Reason: Nausea/Vomiting Pantoprazole Sodium (Protonix Iv) 40 mg IVPUSH Q12H [facility] Last Admin: 05/19/17 09:16 Dose: 40 mg Sodium Chloride (Saline Flush) 10 ml FLUSH Q12H [facility] Sodium Chloride (Saline Flush) 10 ml FLUSH ASDIRECTED PRN PRN Reason: Keep IV open Last Admin: 05/19/17 12:15 Dose: 10 ml Tamsulosin HCl (Flomax) 0.4 mg PO BEDTIME [facility] Last Admin: 05/18/17 19:19 Dose: 0.4 mg Trazodone HCl (Trazodone) 50 mg PO BEDTIME [facility] Last Admin: 05/18/17 19:14 Dose: 50 mg Venlafaxine HCl (Effexor Xr) 225 mg PO DAILY [facility] Last Admin: 05/19/17 07:50 Dose: 225 mg Discontinued Medications Enoxaparin Sodium (Lovenox) 40 mg SUBCUT DAILY [facility] Last Admin: 05/19/17 07:52 Dose: 40 mg Furosemide (Lasix) 20 mg IVPUSH ONETIME ONE Stop: 05/19/17 11:50 Last Admin: 05/19/17 12:14 Dose: 20 mg Sodium Chloride (Normal Saline) 1,000 mls @ 500 mls/hr IV .BOLUS ONE Stop: 05/17/17 20:11 Last Admin: 05/17/17 18:33 Dose: 500 mls/hr Ceftriaxone Sodium 1 gm/ (Sodium Chloride) 100 mls @ 200 mls/hr IV Q24H [facility] Last Admin: 05/17/17 19:36 Dose: 200 mls/hr Sodium Chloride (Normal Saline) 1,000 mls @ 125 mls/hr IV ASDIRECTED [facility] Last Admin: 05/19/17 04:58 Dose: 125 mls/hr Sodium Chloride (Normal Saline) 1,000 mls @ 500 mls/hr IV .BOLUS ONE Stop: 05/18/17 03:24 Last Admin: 05/18/17 01:35 Dose: 500 mls/hr Levothyroxine Sodium (Levothyroxine) 75 mcg PO ACBREAKFAST [facility] Lorazepam (Ativan) 0.5 mg PO TID PRN PRN Reason: Anxiety Methylprednisolone Sodium Succinate (Solu-Medrol) 125 mg IVPUSH ONETIME ONE Stop: 05/18/17 01:22 Last Admin: 05/18/17 01:35 Dose: 125 mg Non-Formulary Medication (Lisinopril [Lisinopril]) 20 mg PO 2000 [facility] Ondansetron HCl (Zofran Odt) 4 mg PO Q6H PRN PRN Reason: Nausea/Vomiting Ondansetron HCl (Zofran) 4 mg IVPUSH Q6H PRN PRN Reason: Nausea/Vomiting Pantoprazole Sodium (Protonix Iv) 80 mg IVPUSH .BOLUS ONE Stop: 05/19/17 14:18 Promethazine HCl (Phenergan) 25 mg PO Q6H PRN PRN Reason: Nausea/Vomiting Tamsulosin HCl (Flomax) 0.4 mg PO BEDTIME [facility] Last Admin: 05/17/17 21:06 Dose: 0.4 mg Trazodone HCl (Trazodone) 50 mg PO BEDTIME [facility] - Exam Quality Assessment: supplemental oxygen (2L) General: alert, oriented, cooperative, no acute distress HEENT: Pupils equal, Pupils reactive, EOMI, Mucous membr. moist/pink Neck: supple Lungs: Clear to auscultation, Normal respiratory effort. No: Crackles, Rales, Rhonchi, Rub, Stridor, Wheezing Cardiovascular: Regular Rate, Regular Rhythm Abdomen: bowel sounds present, soft, no tenderness, no distension (Male) Exam: Deferred Back Exam: Normal Inspection Extremities: no edema Peripheral Pulses: 2+: Radial (L), Radial (R) Skin: warm, dry, intact Neurological: no new focal deficit Psy/Mental Status: alert, normal affect, normal mood - Problem List & Annotations (1) Dehydration, mild SNOMED Code(s): 1434085992482 Code(s): E86.0 - DEHYDRATION Status: Acute Priority: Low Current Visit : Yes Onset Date: 05/17/17 Annotation/Comment:: Saline locked today. (2) Nausea & vomiting SNOMED Code(s): 03802261 Code(s): R11.2 - NAUSEA WITH VOMITING, UNSPECIFIED Status: Acute Priority : Medium Current Visit: Yes Onset Date: 05/17/17 Qualifiers: Vomiting type: unspecified Vomiting Intractability: non-intractable Qualified Code(s): R11.2 - Nausea with vomiting, unspecified Annotation/Comment:: Resolved this morning. Patient on when necessary Phenergan with change to Zofran secondary to his borderline constipation (3) Pneumonia SNOMED Code(s): 772652036 Code(s): J18.9 - PNEUMONIA, UNSPECIFIED ORGANISM Status: Acute Priority: High Current Visit: Yes Qualifiers: Pneumonia type: due to unspecified organism Laterality: right Lung location: middle lobe of lung Qualified Code(s): J18.1 - Lobar pneumonia, unspecified organism Annotation/Comment:: Sputum culture pending. Overall improved. Decreased O2 requirement. Maintaining good O2 sats while ambulating. Chest film appears improved. (4) Renal insufficiency SNOMED Code(s): 193597409, 859103775 Code(s): N28.9 - DISORDER OF KIDNEY AND URETER, UNSPECIFIED Status: Chronic Priority: Medium Current Visit: Yes Annotation/Comment:: BUN/ creatinine normal today with IV hydration. Repeat labs in the a.m. (5) Snuff user SNOMED Code(s): 441143477, 002132742 Code(s): Z78.9 - OTHER SPECIFIED HEALTH STATUS Status: Chronic Priority: Medium Current Visit: No Annotation/Comment:: Tobacco cessation information to be provided at discharge with use of Nicorette gum beneficial in this patient (6) History of CVA with residual deficit SNOMED Code(s): 859610421 Code(s): I69.30 - UNSPECIFIED SEQUELAE OF CEREBRAL INFARCTION Status: Chronic Priority: Medium Current Visit: No Annotation/Comment:: + guiac stool and decreasing Hgb noted today. Lovenox discontinued. (7) Anemia SNOMED Code(s): 872639116 Code(s): D64.9 - ANEMIA, UNSPECIFIED Status: Acute Priority: High Current Visit: Yes Onset Date: 05/18/17 Qualifiers: Anemia type: unspecified type Qualified Code(s): D64.9 - Anemia, unspecified Annotation/Comment:: + occult blood in stool. Lovenox discontinued. HPylori pending. Note history of peptic reflux disease with workup including a medical , iron studies, H. pylori, vitamin B-12, etc. Further workup depending on his clinical course. - Problem List Review Problem List Initiated/Reviewed/Updated: Yes - My Orders Last 24 Hours: My Active Orders 05/18/17 17:30 Chest 2V [CR] Timed 05/18/17 20:00 Lisinopril [Prinivil] 20 mg PO DAILY 05/19/17 08:03 Sodium Chloride 0.9% [Saline Flush] 10 ml FLUSH ASDIRECTED PRN 05/19/17 08:06 Chest 2V [CR] Routine 05/19/17 14:20 Anticoagulation Contraindications VTE [AST] Click To Edit 05/19/17 20:00 Sodium Chloride 0.9% [Saline Flush] 10 ml FLUSH Q12H 05/20/17 05:15 BASIC METABOLIC PANEL,BMP [CHEM] AM CBC WITH AUTO DIFF [HEME] AM - Assessment Assessment:: As above - Plan Plan:: As above. Discussed decreasing Hgb/+ guiac with patient. He is in agreement with discontinuation of Lovenox. He prefers to avoid transfer to [place] at this time and would like to continue treatment for pneumonia and monitoring of Hgb here at this facility.
[2017-05-19] MEDS: Potassium Chloride 20 MEQ Tab.ER PO SCH ×2 (16:23→18:22)
[2017-05-19] MEDS: Ferrous Sulfate 325 MG Tab PO SCH (18:22)
[2017-05-19] MEDS: Calcium Carbonate 750 MG Tab.Chew PO SCH (19:25)
[2017-05-19] MEDS: traZODone 50 MG Tab PO SCH (19:26)
[2017-05-19] MEDS: Azithromycin 500 MG in Sodium Chloride 0.9% 250 ML IV SCH (19:26)
[2017-05-19] MEDS: Tamsulosin 0.4 MG Cap.ER PO SCH (19:26)
[2017-05-19] MEDS: atorvaSTATin 40 MG Tab PO SCH (19:26)
[2017-05-19] MEDS: Sodium Chloride 0.9% 10 ML Syringe FLUSH SCH (19:26)
[2017-05-20] MEDS: Albuterol/Ipratropium 3.0-0.5 MG/3 ML Neb Soln NEB SCH ×2 (01:00→07:54)
[2017-05-20] MEDS: buPROPion 150 MG Tab.ER PO SCH (07:54)
[2017-05-20] MEDS: Dextromethorphan/guaiFENesin 600-30 MG Tab.ER PO SCH (07:54)
[2017-05-20] MEDS: Levothyroxine 75 MCG Tab PO SCH (07:55)
[2017-05-20] MEDS: Lisinopril 20 MG Tab PO SCH (07:55)
[2017-05-20] MEDS: Folic Acid 1 MG Tab PO SCH (07:55)
[2017-05-20] MEDS: Metoprolol Succinate 25 MG Tab.ER PO SCH (07:55)
[2017-05-20] MEDS: Venlafaxine 75 MG Cap.ER PO SCH (07:55)
[2017-05-20] MEDS: Potassium Chloride 20 MEQ Tab.ER PO SCH (07:55)
[2017-05-20 08:03] LABS: CHLORIDE,CL 106 mmol/L (98-107); SODIUM,NA 138 mmol/L (136-145)
[2017-05-20] MEDS: Sodium Chloride 0.9% 10 ML Syringe FLUSH SCH (09:08)
[2017-05-20] MEDS: Pantoprazole 40 MG Vial IVPUSH SCH (09:08)
[2017-05-20] MEDS: cefTRIAXone 1 GM in Sodium Chloride 0.9% 100 ML IV SCH (09:08)
[2017-05-20] MEDS ORDERED: Magnesium Oxide 400 MG Tab PO SCH ×2 (11:15→12:00)
--- NOTE | 2017-05-20 11:27 | PCM.PN ---
- General Info Date of Service: 05/20/17 Admission Dx/Problem (Free Text): 1. Pneumonia 2. Dehydration 3. Nausea/emesis with probable viral GE Subjective Update: Feeling better, stronger. Would like to go home. Functional Status: Reports: pain controlled, tolerating diet, ambulating, urinating, incentive spirometry Pain Score: 0 - Review of Systems General: Reports: No Symptoms HEENT: Reports: no symptoms Pulmonary: Reports: no symptoms Cardiovascular: Reports: No Symptoms Gastrointestinal: Reports: Hematochezia. Denies: Abdominal pain, Decreased appetite, Nausea, Vomiting Genitourinary: Reports: no symptoms Musculoskeletal: Reports: no symptoms Skin: Reports: no symptoms Neurological: Reports: No Symptoms Psychiatric: Reports: no symptoms - Patient Data Vitals - most recent: Last Vital Signs Temp 36.4 C 05/20/17 07:47 Pulse 84 05/20/17 07:55 Resp 18 05/20/17 07:47 BP 130/86 05/20/17 07:55 Pulse Ox 97 05/20/17 07:47 Weight - most recent: 88.088 kg I&O - last 24 hours: Intake & Output 05/19/17 05/20/17 05/20/17 22:59 06:59 14:59 Intake Total 470 420 Output Total 550 350 Balance -80 70 Lab Results last 24 hrs: Laboratory Results - last 24 hr 05/20/17 05/20/17 Range/Units 07:15 07:15 WBC 4.1 (4.0-10.2) K/uL RBC 2.81 L (4.33-5.41) M/uL Hgb 10.1 L (13.1-16.8) g/dL Hct 29.4 L (39.0-49.0) % MCV 104.6 H (84.0-98.0) fL MCH 35.9 H (28.2-33.3) pg MCHC 34.4 (31.7-36.0) g/dL RDW 13.0 (11.2-14.1) % Plt Count 196 (150-350) K/uL Neut % (Auto) 81.1 H (45.0-80.0) % Lymph % (Auto) 10.1 (10.0-50.0) % [place] % (Auto) 7.4 (2.0-14.0) % Eos % (Auto) 1.2 (0.0-5.0) % Baso % (Auto) 0.2 (0.0-2.0) % Neut # (Auto) 3.28 (1.40-7.00) K/uL Lymph # (Auto) 0.41 L (0.50-3.50) K/uL [place] # (Auto) 0.30 (0.00-1.00) K/uL Eos # (Auto) 0.05 (0.00-0.50) K/uL Baso # (Auto) 0.01 (0.00-0.20) K/uL Sodium 138 (136-145) mmol/L Potassium 3.4 L (3.5-5.1) mmol/L Chloride 106 (98-107) mmol/L Carbon Dioxide 23.6 (21.0-32.0) mmol/L BUN 11 (7-18) mg/dL Creatinine 0.87 (0.51-1.17) mg/dL Est Cr Clr Drug Dosing 100.48 mL/min Estimated GFR (MDRD) > 60 mL/min Glucose 93 (74-106) mg/dL Calcium 8.1 L (8.5-10.1) mg/dL [place] Results last 24 hrs: Microbiology 05/18/17 10:30 Gram Stain - Final Sputum - Expectorated Sputum Culture - Final Normal [place] 05/19/17 09:30 Stool Occult Blood (TORIN) - Final Stool / Feces Med Orders - Current: Current Medications Acetaminophen (Tylenol) 650 mg PO Q4H PRN PRN Reason: Pain (Mild 1-3)/fever Last Admin: 05/18/17 01:22 Dose: 650 mg Albuterol (Proventil Neb Soln) 2.5 mg INH Q2H PRN PRN Reason: SHORTNESS OF BREATH Albuterol/Ipratropium (Duoneb 3.0-0.5 Mg/3 Ml) 3 ml NEB Q6HRRT [facility] Last Admin: 05/20/17 07:54 Dose: 3 ml Albuterol/Ipratropium (Duoneb 3.0-0.5 Mg/3 Ml) 3 ml NEB Q4HRRT PRN PRN Reason: Dyspnea Atorvastatin Calcium (Lipitor) 40 mg PO BEDTIME [facility] Last Admin: 05/19/17 19:26 Dose: 40 mg Bisacodyl (Dulcolax) 5 mg PO DAILY PRN PRN Reason: Constipation Bupropion HCl (Wellbutrin Xl) 300 mg PO DAILY [facility] Last Admin: 05/20/17 07:54 Dose: 300 mg Calcium Carbonate/Glycine (Tums Extra Strength) 1,500 mg PO BEDTIME [facility] Last Admin: 05/19/17 19:25 Dose: 1,500 mg Ferrous Sulfate (Ferrous Sulfate) 650 mg PO QPM [facility] Last Admin: 05/19/17 18:22 Dose: 650 mg Folic Acid (Folic Acid) 1 mg PO DAILY [facility] Last Admin: 05/20/17 07:55 Dose: 1 mg Guaifenesin/Dextromethorphan (Mucinex Dm Er 600-30 Mg) 1 tab PO BID [facility] Last Admin: 05/20/17 07:54 Dose: 1 tab Azithromycin 500 mg/ Sodium (Chloride) 250 mls @ 250 mls/hr IV Q24H [facility] Last Admin: 05/19/17 19:26 Dose: 250 mls/hr Ceftriaxone Sodium 1 gm/ (Sodium Chloride) 100 mls @ 200 mls/hr IV Q12H [facility] Last Admin: 05/20/17 09:08 Dose: 200 mls/hr Levothyroxine Sodium (Levothyroxine) 75 mcg PO ACBREAKFAST [facility] Last Admin: 05/20/17 07:55 Dose: 75 mcg Lisinopril (Prinivil) 20 mg PO DAILY [facility] Last Admin: 05/20/17 07:55 Dose: 20 mg Lorazepam (Ativan) 0.5 mg PO TID PRN PRN Reason: Agitation Magnesium Hydroxide (Milk Of Magnesia) 30 ml PO Q12H PRN PRN Reason: Constipation Magnesium Oxide (Magnesium Oxide) 400 mg PO DAILY [facility] Metoprolol Succinate (Toprol Xl) 25 mg PO DAILY [facility] Last Admin: 05/20/17 07:55 Dose: 25 mg Ondansetron HCl (Zofran) 4 mg IVPUSH Q6H PRN PRN Reason: Nausea/Vomiting Pantoprazole Sodium (Protonix Iv) 40 mg IVPUSH Q12H [facility] Last Admin: 05/20/17 09:08 Dose: 40 mg Potassium Chloride (Klor-Con M20) 20 meq PO BID [facility] Last Admin: 05/20/17 07:55 Dose: 20 meq Sodium Chloride (Saline Flush) 10 ml FLUSH Q12H [facility] Last Admin: 05/20/17 09:08 Dose: 10 ml Sodium Chloride (Saline Flush) 10 ml FLUSH ASDIRECTED PRN PRN Reason: Keep IV open Last Admin: 05/19/17 12:15 Dose: 10 ml Tamsulosin HCl (Flomax) 0.4 mg PO BEDTIME [facility] Last Admin: 05/19/17 19:26 Dose: 0.4 mg Trazodone HCl (Trazodone) 50 mg PO BEDTIME [facility] Last Admin: 05/19/17 19:26 Dose: 50 mg Venlafaxine HCl (Effexor Xr) 225 mg PO DAILY [facility] Last Admin: 05/20/17 07:55 Dose: 225 mg Discontinued Medications Enoxaparin Sodium (Lovenox) 40 mg SUBCUT DAILY [facility] Last Admin: 05/19/17 07:52 Dose: 40 mg Furosemide (Lasix) 20 mg IVPUSH ONETIME ONE Stop: 05/19/17 11:50 Last Admin: 05/19/17 12:14 Dose: 20 mg Sodium Chloride (Normal Saline) 1,000 mls @ 500 mls/hr IV .BOLUS ONE Stop: 05/17/17 20:11 Last Admin: 05/17/17 18:33 Dose: 500 mls/hr Ceftriaxone Sodium 1 gm/ (Sodium Chloride) 100 mls @ 200 mls/hr IV Q24H [facility] Last Admin: 05/17/17 19:36 Dose: 200 mls/hr Sodium Chloride (Normal Saline) 1,000 mls @ 125 mls/hr IV ASDIRECTED [facility] Last Admin: 05/19/17 04:58 Dose: 125 mls/hr Sodium Chloride (Normal Saline) 1,000 mls @ 500 mls/hr IV .BOLUS ONE Stop: 05/18/17 03:24 Last Admin: 05/18/17 01:35 Dose: 500 mls/hr Levothyroxine Sodium (Levothyroxine) 75 mcg PO ACBREAKFAST [facility] Lorazepam (Ativan) 0.5 mg PO TID PRN PRN Reason: Anxiety Methylprednisolone Sodium Succinate (Solu-Medrol) 125 mg IVPUSH ONETIME ONE Stop: 05/18/17 01:22 Last Admin: 05/18/17 01:35 Dose: 125 mg Non-Formulary Medication (Lisinopril [Lisinopril]) 20 mg PO 2000 [facility] Ondansetron HCl (Zofran Odt) 4 mg PO Q6H PRN PRN Reason: Nausea/Vomiting Ondansetron HCl (Zofran) 4 mg IVPUSH Q6H PRN PRN Reason: Nausea/Vomiting Pantoprazole Sodium (Protonix Iv) 80 mg IVPUSH .BOLUS ONE Stop: 05/19/17 14:18 Promethazine HCl (Phenergan) 25 mg PO Q6H PRN PRN Reason: Nausea/Vomiting Tamsulosin HCl (Flomax) 0.4 mg PO BEDTIME [facility] Last Admin: 05/17/17 21:06 Dose: 0.4 mg Trazodone HCl (Trazodone) 50 mg PO BEDTIME [facility] - Exam Quality Assessment: supplemental oxygen General: alert, oriented, cooperative, no acute distress HEENT: Pupils equal, Pupils reactive, EOMI, Mucous membr. moist/pink Neck: supple Lungs: Clear to auscultation, Normal respiratory effort Cardiovascular: Regular Rate, Regular Rhythm Abdomen: bowel sounds present, soft, no tenderness, no distension (Male) Exam: Deferred Back Exam: No: Paraspinal Tenderness, Vertebral Tenderness Extremities: no calf tenderness Skin: warm, dry Neurological: no new focal deficit Psy/Mental Status: alert, normal affect, normal mood - Problem List & Annotations (1) Dehydration, mild SNOMED Code(s): 7140720529036 Code(s): E86.0 - DEHYDRATION Status: Acute Priority: Low Current Visit : Yes Onset Date: 05/17/17 Annotation/Comment:: Improved. (2) Nausea & vomiting SNOMED Code(s): 86430653 Code(s): R11.2 - NAUSEA WITH VOMITING, UNSPECIFIED Status: Acute Priority : Medium Current Visit: Yes Onset Date: 05/17/17 Qualifiers: Vomiting type: unspecified Vomiting Intractability: non-intractable Qualified Code(s): R11.2 - Nausea with vomiting, unspecified Annotation/Comment:: Resolved. (3) Pneumonia SNOMED Code(s): 993602710 Code(s): J18.9 - PNEUMONIA, UNSPECIFIED ORGANISM Status: Acute Priority: High Current Visit: Yes Qualifiers: Pneumonia type: due to unspecified organism Laterality: right Lung location: middle lobe of lung Qualified Code(s): J18.1 - Lobar pneumonia, unspecified organism Annotation/Comment:: Sputum culture pending. Overall improved. Decreased O2 requirement. Maintaining good O2 sats while ambulating. Chest film appears improved. (4) Renal insufficiency SNOMED Code(s): 982750581, 470837849 Code(s): N28.9 - DISORDER OF KIDNEY AND URETER, UNSPECIFIED Status: Chronic Priority: Medium Current Visit: Yes Annotation/Comment:: BUN/ creatinine normal today with IV hydration. Repeat labs in the a.m. (5) Snuff user SNOMED Code(s): 988022642, 976648848 Code(s): Z78.9 - OTHER SPECIFIED HEALTH STATUS Status: Chronic Priority: Medium Current Visit: No Annotation/Comment:: Tobacco cessation information to be provided at discharge with use of Nicorette gum beneficial in this patient (6) History of CVA with residual deficit SNOMED Code(s): 206805540 Code(s): I69.30 - UNSPECIFIED SEQUELAE OF CEREBRAL INFARCTION Status: Chronic Priority: Medium Current Visit: No Annotation/Comment:: + guiac stool and decreasing Hgb noted today. Lovenox discontinued. (7) Anemia SNOMED Code(s): 338335531 Code(s): D64.9 - ANEMIA, UNSPECIFIED Status: Acute Priority: High Current Visit: Yes Onset Date: 05/18/17 Qualifiers: Anemia type: unspecified type Qualified Code(s): D64.9 - Anemia, unspecified Annotation/Comment:: + occult blood in stool. Lovenox discontinued. HPylori pending. Note history of peptic reflux disease with workup including a medical , iron studies, H. pylori, vitamin B-12, etc. Further workup depending on his clinical course. (8) GI bleed SNOMED Code(s): 46409364 Code(s): K92.2 - GASTROINTESTINAL HEMORRHAGE, UNSPECIFIED Status: Acute Priority: High Current Visit: Yes Onset Date: Unknown Qualifiers: GI bleed type/associated pathology: melena Qualified Code(s): K92.1 - Melena (9) Hypomagnesemia SNOMED Code(s): 224406310 Code(s): E83.42 - HYPOMAGNESEMIA Status: Chronic Priority: Low Current Visit: Yes - Problem List Review Problem List Initiated/Reviewed/Updated: Yes - My Orders Last 24 Hours: My Active Orders 05/19/17 14:20 Anticoagulation Contraindications VTE [AST] Click To Edit 05/19/17 16:00 Potassium Chloride [Klor-Con M20] 20 meq PO BID 05/19/17 20:00 Sodium Chloride 0.9% [Saline Flush] 10 ml FLUSH Q12H 05/20/17 10:44 Hemoccult [OCCULT BLOOD DIAGNOSTIC] [OP] Routine 05/20/17 11:15 Magnesium Oxide 400 mg PO DAILY - Assessment Assessment:: Pneumonia. Improving. Sputum culture revealed only normal bol[place]ar. Decreasing Hgb noted upon admission. Developed dark stools after admission. Lovenox discontinued. Hemaglobin has stabilized but continues to have heme + stool. Has history of colon polyps and required admission for one week after his last colonoscopy triggered some bleeding. - Plan Plan:: Patient is currently off his Plavix. Lovenox discontinued after stool changes noted. Will continue to monitor for additional heme+ stools. Repeat labs in AM. Repeat chest xray in AM. Patient will have trial off oxygen today to see how well O2 sats are maintained on room air. IV antibiotics will continue as well as neb treatments. Supplemental Mag ordered today. Mild hypokalemia noted yesterday and supplementation initiated. Anticipate that patient will require change to Swing Bed tomorrow if futher improvement is noted and he remains stable. Given the continued heme+ stools close monitoring will need to be continued. If no improvement overall is noted in comparison to today, plan will be to contact [facility] or [facility] in [place] and possible need for transfer will be discussed at that time. Patient and his are in agreement with plan.
[2017-05-20] MEDS ORDERED: Albuterol/Ipratropium 3.0-0.5 MG/3 ML Neb Soln NEB SCH (12:00)
[2017-05-20 12:28] VITALS: BP 134/87
--- NOTE | 2017-05-20 13:05 | PCM.DCSUM1 ---
Discharge Summary - Discharge Data Discharge Date: 05/20/17 Discharge Disposition: DC/Tfer to Acute Hospital 02 Condition: Good - Discharge Diagnosis/Problem(s) (1) Dehydration, mild SNOMED Code(s): 5200859260027 ICD Code: E86.0 - DEHYDRATION Status: Acute Priority: Low Current Visit : Yes Onset Date: 05/17/17 Problem Details: Improved. (2) Nausea & vomiting SNOMED Code(s): 92447307 ICD Code: R11.2 - NAUSEA WITH VOMITING, UNSPECIFIED Status: Acute Priority: Medium Current Visit: Yes Onset Date: 05/17/17 Problem Details: Resolved. Qualifiers: Vomiting type: unspecified Vomiting Intractability: non-intractable Qualified Code(s): R11.2 - Nausea with vomiting, unspecified (3) Pneumonia SNOMED Code(s): 234712386 ICD Code: J18.9 - PNEUMONIA, UNSPECIFIED ORGANISM Status: Acute Priority : High Current Visit: Yes Problem Details: Overall improved. Decreased O2 requirement. Maintaining good O2 sats while ambulating. Chest film appears improved. Sputum culture showed normal [place] Qualifiers: Pneumonia type: due to unspecified organism Laterality: right Lung location: unspecified part of lung Qualified Code(s): J18.9 - Pneumonia, unspecified organism (4) Renal insufficiency SNOMED Code(s): 056356457, 571219703 ICD Code: N28.9 - DISORDER OF KIDNEY AND URETER, UNSPECIFIED Status: Chronic Priority: Medium Current Visit: Yes Problem Details: BUN/ creatinine normal today with IV hydration. Repeat labs in the a.m. (5) Snuff user SNOMED Code(s): 422698742, 698242178 ICD Code: Z78.9 - OTHER SPECIFIED HEALTH STATUS Status: Chronic Priority : Medium Current Visit: No Problem Details: Tobacco cessation information to be provided at discharge with use of Nicorette gum beneficial in this patient (6) History of CVA with residual deficit SNOMED Code(s): 605927688 ICD Code: I69.30 - UNSPECIFIED SEQUELAE OF CEREBRAL INFARCTION Status: Chronic Priority: Medium Current Visit: No Problem Details: + guiac stool and decreasing Hgb noted today. Lovenox discontinued. (7) Anemia SNOMED Code(s): 066382610 ICD Code: D64.9 - ANEMIA, UNSPECIFIED Status: Acute Priority: High Current Visit: Yes Onset Date: 05/18/17 Problem Details: + occult blood in stool. Lovenox discontinued. HPylori pending. Note history of peptic reflux disease with workup including a medical, iron studies, H. pylori, vitamin B-12, etc. Further workup depending on his clinical course. Qualifiers: Anemia type: unspecified type Qualified Code(s): D64.9 - Anemia, unspecified (8) GI bleed SNOMED Code(s): 31673507 ICD Code: K92.2 - GASTROINTESTINAL HEMORRHAGE, UNSPECIFIED Status: Acute Priority: High Current Visit: Yes Onset Date: Unknown Qualifiers: GI bleed type/associated pathology: melena Qualified Code(s): K92.1 - Melena (9) Hypomagnesemia SNOMED Code(s): 732362271 ICD Code: E83.42 - HYPOMAGNESEMIA Status: Chronic Priority: Low Current Visit: Yes - Patient Summary/Data Complications: Patient developed GI bleed during hospitalization. Consults: Consultations 05/18/17 09:20 OT Evaluation and Treatment [CONS] Routine PT Evaluation and Treatment [CONS] Routine Hospital Course: Treated for pneumonia. Supplemental O2/antibiotics/nebs. Fluids given for dehydration. Pneumonia and dehydration improved. Developed darker stools that were heme+. Lovenox D/C. Patient placed on Protonix. HGB noted to decrease, suspect partially due to dilutional effect as well as the GI bleed. Patient did not wish to be transferred to [place]. Call placed this afternoon to [facility]. , on-call GI specialist was consulted. He recommended that patient be transferred with plan for upper endoscopy to be performed at [facility]. Patient and patient's were in agreement with transfer once reasons/concerns were discussed with them. - Discharge Plan Home Medications: Home Meds buPROPion [buPROPion XL] 300 mg PO DAILY 06/23/14 [History] Pantoprazole [ProTONIX] 40 mg PO DAILY 07/22/14 [History] Clopidogrel Bisulfate [Clopidogrel] 75 mg PO DAILY 04/15/17 [History] LORazepam 0.5 mg PO TID PRN 04/15/17 [History] Levothyroxine Sodium [Synthroid] 75 mcg PO ACBREAKFAST 04/15/17 [History] Metoprolol Succinate 25 mg PO DAILY 04/15/17 [History] Venlafaxine HCl [Venlafaxine ER] 225 mg PO DAILY 04/15/17 [History] atorvaSTATin [Lipitor] 40 mg PO BEDTIME 04/15/17 [History] traZODone 50 mg PO BEDTIME 04/15/17 [History] Tamsulosin [Flomax] 0.4 mg PO BEDTIME #0 04/17/17 [Rx] Lisinopril 20 mg PO 199905/17/17 [History] Forms: ED Department Discharge Referrals: Suresh Grullon ART HISTORY PROFESSOR [Primary Care Provider] - - Discharge Summary/Plan Comment DC Time >30 min.: Yes (Need to wait for ambulance availability in order to perform transfer. ) - General Info Date of Service: 05/20/17 Admission Dx/Problem (Free Text: 1. Pneumonia 2. Dehydration 3. Nausea/emesis with probable viral GE Subjective Update: Feeling better, stronger. Would like to go home. Functional Status: Reports: pain controlled, tolerating diet, ambulating, urinating - Review of Systems General: Reports: No Symptoms HEENT: Reports: no symptoms Pulmonary: Reports: no symptoms Cardiovascular: Reports: No Symptoms Gastrointestinal: Reports: Hematochezia Genitourinary: Reports: no symptoms Musculoskeletal: Reports: no symptoms Skin: Reports: no symptoms Neurological: Reports: No Symptoms, Pre-Existing Deficit Psychiatric: Reports: no symptoms - Patient Data Vitals - Most Recent: Last Vital Signs Temp 36.0 C 05/20/17 12:00 Pulse 85 05/20/17 12:00 Resp 18 05/20/17 12:00 BP 134/87 05/20/17 12:00 Pulse Ox 94 L 05/20/17 12:00 Weight - Most Recent: 88.088 kg I&O - Last 24 hours: Intake & Output 05/19/17 05/20/17 05/20/17 22:59 06:59 14:59 Intake Total 470 780 Output Total 550 350 Balance -80 430 Lab Results - Last 24 hrs: Laboratory Results - last 24 hr 05/20/17 05/20/17 Range/Units 07:15 07:15 WBC 4.1 (4.0-10.2) K/uL RBC 2.81 L (4.33-5.41) M/uL Hgb 10.1 L (13.1-16.8) g/dL Hct 29.4 L (39.0-49.0) % MCV 104.6 H (84.0-98.0) fL MCH 35.9 H (28.2-33.3) pg MCHC 34.4 (31.7-36.0) g/dL RDW 13.0 (11.2-14.1) % Plt Count 196 (150-350) K/uL Neut % (Auto) 81.1 H (45.0-80.0) % Lymph % (Auto) 10.1 (10.0-50.0) % [place] % (Auto) 7.4 (2.0-14.0) % Eos % (Auto) 1.2 (0.0-5.0) % Baso % (Auto) 0.2 (0.0-2.0) % Neut # (Auto) 3.28 (1.40-7.00) K/uL Lymph # (Auto) 0.41 L (0.50-3.50) K/uL [place] # (Auto) 0.30 (0.00-1.00) K/uL Eos # (Auto) 0.05 (0.00-0.50) K/uL Baso # (Auto) 0.01 (0.00-0.20) K/uL Sodium 138 (136-145) mmol/L Potassium 3.4 L (3.5-5.1) mmol/L Chloride 106 (98-107) mmol/L Carbon Dioxide 23.6 (21.0-32.0) mmol/L BUN 11 (7-18) mg/dL Creatinine 0.87 (0.51-1.17) mg/dL Est Cr Clr Drug Dosing 100.48 mL/min Estimated GFR (MDRD) > 60 mL/min Glucose 93 (74-106) mg/dL Calcium 8.1 L (8.5-10.1) mg/dL BRYAN Results - Last 24 hrs: Microbiology 05/20/17 10:44 Stool Occult Blood (BRYAN) - Final Stool / Feces NEGATIVE OCCULT BLOOD 05/18/17 10:30 Gram Stain - Final Sputum - Expectorated Sputum Culture - Final Normal [place] 05/19/17 09:30 Stool Occult Blood (BRYAN) - Final Stool / Feces Med Orders - Current: Current Medications Acetaminophen (Tylenol) 650 mg PO Q4H PRN PRN Reason: Pain (Mild 1-3)/fever Last Admin: 05/18/17 01:22 Dose: 650 mg Albuterol (Proventil Neb Soln) 2.5 mg INH Q2H PRN PRN Reason: SHORTNESS OF BREATH Albuterol/Ipratropium (Duoneb 3.0-0.5 Mg/3 Ml) 3 ml NEB Q4HRRT PRN PRN Reason: Dyspnea Albuterol/Ipratropium (Duoneb 3.0-0.5 Mg/3 Ml) 3 ml NEB QIDRT [facility] Atorvastatin Calcium (Lipitor) 40 mg PO BEDTIME [facility] Last Admin: 05/19/17 19:26 Dose: 40 mg Bisacodyl (Dulcolax) 5 mg PO DAILY PRN PRN Reason: Constipation Bupropion HCl (Wellbutrin Xl) 300 mg PO DAILY [facility] Last Admin: 05/20/17 07:54 Dose: 300 mg Calcium Carbonate/Glycine (Tums Extra Strength) 1,500 mg PO BEDTIME [facility] Last Admin: 05/19/17 19:25 Dose: 1,500 mg Ferrous Sulfate (Ferrous Sulfate) 650 mg PO QPM [facility] Last Admin: 05/19/17 18:22 Dose: 650 mg Folic Acid (Folic Acid) 1 mg PO DAILY [facility] Last Admin: 05/20/17 07:55 Dose: 1 mg Guaifenesin/Dextromethorphan (Mucinex Dm Er 600-30 Mg) 1 tab PO BID [facility] Last Admin: 05/20/17 07:54 Dose: 1 tab Azithromycin 500 mg/ Sodium (Chloride) 250 mls @ 250 mls/hr IV Q24H [facility] Last Admin: 05/19/17 19:26 Dose: 250 mls/hr Ceftriaxone Sodium 1 gm/ (Sodium Chloride) 100 mls @ 200 mls/hr IV Q12H [facility] Last Admin: 05/20/17 09:08 Dose: 200 mls/hr Levothyroxine Sodium (Levothyroxine) 75 mcg PO ACBREAKFAST [facility] Last Admin: 05/20/17 07:55 Dose: 75 mcg Lisinopril (Prinivil) 20 mg PO DAILY [facility] Last Admin: 05/20/17 07:55 Dose: 20 mg Lorazepam (Ativan) 0.5 mg PO TID PRN PRN Reason: Agitation Magnesium Hydroxide (Milk Of Magnesia) 30 ml PO Q12H PRN PRN Reason: Constipation Magnesium Oxide (Magnesium Oxide) 400 mg PO DAILY@1200 [place] Metoprolol Succinate (Toprol Xl) 25 mg PO DAILY [facility] Last Admin: 05/20/17 07:55 Dose: 25 mg Ondansetron HCl (Zofran) 4 mg IVPUSH Q6H PRN PRN Reason: Nausea/Vomiting Pantoprazole Sodium (Protonix Iv) 40 mg IVPUSH Q12H [facility] Last Admin: 05/20/17 09:08 Dose: 40 mg Potassium Chloride (Klor-Con M20) 20 meq PO BID [facility] Last Admin: 05/20/17 07:55 Dose: 20 meq Sodium Chloride (Saline Flush) 10 ml FLUSH Q12H [facility] Last Admin: 05/20/17 09:08 Dose: 10 ml Sodium Chloride (Saline Flush) 10 ml FLUSH ASDIRECTED PRN PRN Reason: Keep IV open Last Admin: 05/19/17 12:15 Dose: 10 ml Tamsulosin HCl (Flomax) 0.4 mg PO BEDTIME [facility] Last Admin: 05/19/17 19:26 Dose: 0.4 mg Trazodone HCl (Trazodone) 50 mg PO BEDTIME [facility] Last Admin: 05/19/17 19:26 Dose: 50 mg Venlafaxine HCl (Effexor Xr) 225 mg PO DAILY [facility] Last Admin: 05/20/17 07:55 Dose: 225 mg Discontinued Medications Albuterol/Ipratropium (Duoneb 3.0-0.5 Mg/3 Ml) 3 ml NEB Q6HRRT [facility] Last Admin: 05/20/17 07:54 Dose: 3 ml Enoxaparin Sodium (Lovenox) 40 mg SUBCUT DAILY [facility] Last Admin: 05/19/17 07:52 Dose: 40 mg Furosemide (Lasix) 20 mg IVPUSH ONETIME ONE Stop: 05/19/17 11:50 Last Admin: 05/19/17 12:14 Dose: 20 mg Sodium Chloride (Normal Saline) 1,000 mls @ 500 mls/hr IV .BOLUS ONE Stop: 05/17/17 20:11 Last Admin: 05/17/17 18:33 Dose: 500 mls/hr Ceftriaxone Sodium 1 gm/ (Sodium Chloride) 100 mls @ 200 mls/hr IV Q24H [facility] Last Admin: 05/17/17 19:36 Dose: 200 mls/hr Sodium Chloride (Normal Saline) 1,000 mls @ 125 mls/hr IV ASDIRECTED [facility] Last Admin: 05/19/17 04:58 Dose: 125 mls/hr Sodium Chloride (Normal Saline) 1,000 mls @ 500 mls/hr IV .BOLUS ONE Stop: 05/18/17 03:24 Last Admin: 05/18/17 01:35 Dose: 500 mls/hr Levothyroxine Sodium (Levothyroxine) 75 mcg PO ACBREAKFAST [facility] Lorazepam (Ativan) 0.5 mg PO TID PRN PRN Reason: Anxiety Magnesium Oxide (Magnesium Oxide) 400 mg PO DAILY [facility] Last Admin: 05/20/17 12:43 Dose: Not Given Methylprednisolone Sodium Succinate (Solu-Medrol) 125 mg IVPUSH ONETIME ONE Stop: 05/18/17 01:22 Last Admin: 05/18/17 01:35 Dose: 125 mg Non-Formulary Medication (Lisinopril [Lisinopril]) 20 mg PO 2000 [facility] Ondansetron HCl (Zofran Odt) 4 mg PO Q6H PRN PRN Reason: Nausea/Vomiting Ondansetron HCl (Zofran) 4 mg IVPUSH Q6H PRN PRN Reason: Nausea/Vomiting Pantoprazole Sodium (Protonix Iv) 80 mg IVPUSH .BOLUS ONE Stop: 05/19/17 14:18 Promethazine HCl (Phenergan) 25 mg PO Q6H PRN PRN Reason: Nausea/Vomiting Tamsulosin HCl (Flomax) 0.4 mg PO BEDTIME [facility] Last Admin: 05/17/17 21:06 Dose: 0.4 mg Trazodone HCl (Trazodone) 50 mg PO BEDTIME [facility] - Exam General: Reports: alert, oriented, cooperative, no acute distress HEENT: Reports: Pupils equal, Pupils reactive, EOMI, Mucous membr. moist/pink Neck: Reports: supple Lungs: Reports: Clear to auscultation, Normal respiratory effort Cardiovascular: Reports: Regular Rate, Regular Rhythm Abdomen: Reports: bowel sounds present, soft, no tenderness, no distension Back Exam: Reports: Normal Inspection Extremities: Reports: no calf tenderness Skin: Reports: warm, dry, intact Neurological: Reports: no new focal deficit *Q Meaningful Use (DIS) - VTE *Q VTE Criteria *Q: VTE Anticoagulation Contraindications: Comp/Late Effect of Care - Stroke *Q Stroke Criteria *Q: - AMI *Q AMI Criteria *Q:
== END 2017-05-20 14:55 | DRG 190 ==
LOC: LL.ED 16:52 → UNDOADMIN 18:10 → LL.MS 18:10 → UNDODISIN 05-20 14:55
PROVIDERS: ADMIT Emergency Medicine; ATTEND Family Medicine
DX: J44.0 Chronic obstructive pulmonary disease with (acute) lower respiratory infection (principal); J18.1 Lobar pneumonia, unspecified organism; I69.951 Hemiplegia and hemiparesis following unspecified cerebrovascular disease affecting right dominant side; E87.2 Acidosis; K92.2 Gastrointestinal hemorrhage, unspecified; E86.0 Dehydration; N28.9 Disorder of kidney and ureter, unspecified; E03.9 Hypothyroidism, unspecified; I10 Essential (primary) hypertension; R11.2 Nausea with vomiting, unspecified; F17.220 Nicotine dependence, chewing tobacco, uncomplicated; R73.9 Hyperglycemia, unspecified; D64.9 Anemia, unspecified; E78.5 Hyperlipidemia, unspecified; K21.9 Gastro-esophageal reflux disease without esophagitis; F41.8 Other specified anxiety disorders; E88.09 Other disorders of plasma-protein metabolism, not elsewhere classified; E83.51 Hypocalcemia; Z88.1 Allergy status to other antibiotic agents; E83.42 Hypomagnesemia
CPT/HCPCS: 36000; 36415; 71020; 80048; 80053; 81001; 82272; 82607; 82728; 82746; 83540; 83550; 83605; 83735; 84466; 85025; 87070; 87205; 87338; 94640; 94664; 94761; 97110-GO; 97110-GP; 97112-GP; 97116-GP; 97161-GP; 97165-GO; 97530-GO; 99284; A9270-GY; C9113; J0456; J0696; J1650; J1940; J2930; J7030; J7050

== ENCOUNTER 2017-06-09 15:31 | Inpatient (IN) | payer MEDICARE, BC ==
[2017-06-09] MEDS ORDERED: Acetaminophen 325 MG Tab PO PRN ×2 (16:22→16:39)
[2017-06-09] MEDS ORDERED: Magnesium Hydroxide 400 MG/5 ML Susp 30 ML Cup PO PRN (16:22)
[2017-06-09] MEDS ORDERED: Bisacodyl 5 MG Tab PO PRN (16:22)
--- NOTE | 2017-06-09 16:30 | PCM.HP ---
H&P History of Present Illness - General Date of Service: 06/09/17 Admit Problem/Dx: Admission Diagnosis/Problem Admission Diagnosis/Problem Falls Source of Information: Patient, Family () History Limitations: Reports: No Limitations - History of Present Illness Initial Comments - Free Text/Narative: Patient was seen in the clinic after PT/OT evaluation today. Noticed progressive weakness since stroke. Concerns with multiple falls. Patient will be admitted to [facility] for stregthening. PT/OT consulted. Onset of Symptoms: Reports: Gradual - Related Data Allergies/Adverse Reactions: Allergies Allergy/AdvReac Type Severity Reaction Status Date / Time dicloxacillin AdvReac Nausea Verified 06/04/17 19:41 Home Medications: Home Meds buPROPion [buPROPion XL] 300 mg PO DAILY 06/23/14 [History] Pantoprazole [ProTONIX] 40 mg PO DAILY 07/22/14 [History] Clopidogrel Bisulfate [Clopidogrel] 75 mg PO DAILY 04/15/17 [History] LORazepam 0.5 mg PO TID PRN 04/15/17 [History] Levothyroxine Sodium [Synthroid] 75 mcg PO ACBREAKFAST 04/15/17 [History] Metoprolol Succinate 25 mg PO DAILY 04/15/17 [History] Venlafaxine HCl [Venlafaxine ER] 225 mg PO DAILY 04/15/17 [History] atorvaSTATin [Lipitor] 40 mg PO BEDTIME 04/15/17 [History] traZODone 50 mg PO BEDTIME 04/15/17 [History] Tamsulosin [Flomax] 0.4 mg PO BEDTIME #0 04/17/17 [Rx] Lisinopril 20 mg PO BEDTIME 05/17/17 [History] Acetaminophen 650 mg PO Q4H PRN 06/04/17 [History] Cyanocobalamin (Vitamin B-12) [Vitamin B-12] 1,000 mcg PO DAILY 06/04/17 [ History] Folic Acid 1 mg PO DAILY 06/04/17 [History] Magnesium Gluconate 500 mg PO DAILY 06/04/17 [History] Multivitamin [Multivitamins] 1 each PO DAILY 06/04/17 [History] Past Medical History Cardiovascular History: Reports: Arrhythmia, High Cholesterol, Hypertension Respiratory History: Reports: None, Pneumonia, Recurrent Gastrointestinal History: Reports: GERD, GI Bleed Genitourinary History: Reports: Chronic Renal Insuffiency, Renal Disease, Other (See Below) Other Genitourinary History: nocturia Musculoskeletal History: Reports: Other (See Below) Other Musculoskeletal History: Bursitis, elbow d/o, chronic right foot pain Neurological History: Reports: CVA, Other (See Below) Other Neuro History: 2014, dizziness, freq. falls, fatigue Psychiatric History: Reports: Anxiety, Depression Endocrine/Metabolic History: Reports: Hypothyroidism, Other (See Below) Other Endocrine/Metabolic History: hyperglycemia, hypomagnesemia, B12 deficiency Hematologic History: Reports: Anemia, Other (See Below) Other Hematologic History: bruises easily - Infectious Disease History Infectious Disease History: Reports: Measles, Mumps Social & Family History - Tobacco Use Smoking Status *Q: Never Smoker Years of Tobacco use: 40 Packs/Tins Daily: 0.2 - Caffeine Use Caffeine Use: Reports: Coffee - Alcohol Use Days Per Week of Alcohol Use: 4 Number of Drinks Per Day: 1 Total Drinks Per Week: 4 - Recreational Drug Use Recreational Drug Use: No H&P Review of Systems - Review of Systems: Review Of Systems: See Below General: Reports: Weakness HEENT: Reports: No Symptoms Pulmonary: Reports: No Symptoms Cardiovascular: Reports: No Symptoms Gastrointestinal: Reports: No Symptoms Musculoskeletal: Reports: Other (complains of multiple falls) Skin: Reports: Bruising Psychiatric: Reports: No Symptoms Neurological: Reports: Pre-Existing Deficit, Seizure (reported by ), Difficulty Walking, Weakness Exam - Exam Exam: See Below - Vital Signs Weight: 200 lb - Exam General: Alert, Oriented, 4 HEENT: PERRLA, Hearing Intact, Mucosa Moist & [place], Nares Patent, Normal Nasal Septum, Posterior Pharynx Clear, Conjunctiva Clear, EOMI, EACs Clear, TMs Clear Neck: Supple, Trachea Midline, 2 Lungs: Clear to Auscultation, Normal Respiratory Effort Cardiovascular: Regular Rate, Regular Rhythm GI/Abdominal Exam: Normal Bowel Sounds, Soft, Non-Tender, No Organomegaly, No Distention, No Abnormal Bruit, No Mass, Pelvis Stable (Male) Exam: Deferred Rectal (Males) Exam: Deferred Back Exam: Normal Inspection, Full Range of Motion, NT Extremities: Other (patient has spastic shuffling on ambulation; difficulty with balance with hx of multiple recent falls; post ictal per history of family ) Neurological: Abnormal Gait Neuro Extensive - Mental Status: Alert, Oriented x3 Psychiatric: Anxious *Q Meaningful Use (ADM) - VTE *Q VTE Criteria *Q: - Stroke *Q Stroke Criteria *Q: - AMI *Q AMI Criteria *Q: - Problem List (1) Frequent falls SNOMED Code(s): 502062622 ICD Code: R29.6 - REPEATED FALLS Status: Acute (2) Failure to thrive SNOMED Code(s): 04316116 ICD Code: [id number] - Status: Acute (3) Generalized weakness SNOMED Code(s): 93697944 ICD Code: R53.1 - WEAKNESS Status: Acute (4) History of CVA with residual deficit SNOMED Code(s): 409380953 ICD Code: I69.30 - UNSPECIFIED SEQUELAE OF CEREBRAL INFARCTION Status: Chronic Priority: Medium Problem List Initiated/Reviewed/Updated: Yes Orders Last 24hrs: Active Orders 24 hr Category Date Time Status Patient Status [ADT] Routine ADT 06/09/17 16:19 Ordered Antiembolic Devices [RC] PER UNIT ROUTINE Care 06/09/17 16:23 Ordered May Shower [RC] ASDIRECTED Care 06/09/17 16:22 Ordered Oxygen Therapy [RC] PRN Care 06/09/17 16:19 Ordered Oxygen Therapy [RC] PRN Care 06/09/17 16:21 Ordered Oxygen Therapy [RC] PRN Care 06/09/17 16:22 Ordered Up With Assistance [RC] ASDIRECTED Care 06/09/17 16:22 Ordered VTE/DVT Education [RC] PER UNIT ROUTINE Care 06/09/17 16:19 Ordered VTE/DVT Education [RC] PER UNIT ROUTINE Care 06/09/17 16:21 Inactive VTE/DVT Education [RC] PER UNIT ROUTINE Care 06/09/17 16:22 Inactive Vital Signs [RC] DAILY Care 06/09/17 16:19 Ordered Vital Signs [RC] PER UNIT ROUTINE Care 06/09/17 16:21 Ordered Consult to Case Management [CONS] Routine Cons 06/09/17 16:22 Ordered OT Evaluation and Treatment [CONS] Routine Cons 06/09/17 16:22 Ordered PT Evaluation and Treatment [CONS] Routine Cons 06/09/17 16:22 Ordered Regular Diet [DIET] Diet 06/09/17 Dinner Ordered Acetaminophen [Tylenol] Med 06/09/17 16:22 Ordered 650 mg PO Q4H PRN Bisacodyl [Dulcolax] Med 06/09/17 16:22 Ordered 5 mg PO DAILY PRN Magnesium Hydroxide [Milk of Magnesia] Med 06/09/17 16:22 Ordered 30 ml PO Q12H PRN Antiembolic Hose [OM.PC] Routine Oth 06/09/17 16:22 Ordered Resuscitation Status Routine Resus Stat 06/09/17 16:21 Ordered Medication Orders Acetaminophen (Tylenol) 650 mg PO Q4H PRN PRN Reason: Pain (Mild 1-3)/fever Bisacodyl (Dulcolax) 5 mg PO DAILY PRN PRN Reason: Constipation Magnesium Hydroxide (Milk Of Magnesia) 30 ml PO Q12H PRN PRN Reason: Constipation Assessment/Plan Comment:: PT/OT consulted. Will order CT and EEG for comparison of previous stroke.
[2017-06-09] MEDS ORDERED: LORazepam 0.5 MG Tab PO PRN (16:39)
[2017-06-09] MEDS: atorvaSTATin 40 MG Tab PO SCH (20:22)
[2017-06-09] MEDS: Lisinopril 20 MG Tab PO SCH (20:22)
[2017-06-09] MEDS: Tamsulosin 0.4 MG Cap.ER PO SCH (20:22)
[2017-06-09] MEDS: traZODone 50 MG Tab PO SCH (20:23)
[2017-06-10] MEDS: Venlafaxine 75 MG Cap.ER PO SCH (07:48)
[2017-06-10] MEDS: Levothyroxine 75 MCG Tab PO SCH (07:48)
[2017-06-10] MEDS: Folic Acid 1 MG Tab PO SCH (07:49)
[2017-06-10] MEDS: Multivitamin Tab PO SCH (07:49)
[2017-06-10] MEDS: Pantoprazole 40 MG Tab.CR PO SCH (07:49)
[2017-06-10] MEDS: Clopidogrel 75 MG Tab PO SCH (07:49)
[2017-06-10] MEDS: buPROPion 150 MG Tab.ER PO SCH (07:50)
[2017-06-10] MEDS: Metoprolol Succinate 25 MG Tab.ER PO SCH (07:50)
[2017-06-10] MEDS: Cyanocobalamin (Vitamin B12) 1,000 MCG Tab PO SCH (07:50)
[2017-06-10] MEDS: atorvaSTATin 40 MG Tab PO SCH (19:50)
[2017-06-10] MEDS: Tamsulosin 0.4 MG Cap.ER PO SCH (19:50)
[2017-06-10] MEDS: traZODone 50 MG Tab PO SCH (19:51)
[2017-06-10] MEDS: Lisinopril 20 MG Tab PO SCH (19:51)
[2017-06-11] MEDS: Levothyroxine 75 MCG Tab PO SCH (07:41)
[2017-06-11] MEDS: Folic Acid 1 MG Tab PO SCH (07:41)
[2017-06-11] MEDS: Venlafaxine 75 MG Cap.ER PO SCH (07:41)
[2017-06-11] MEDS: Pantoprazole 40 MG Tab.CR PO SCH (07:42)
[2017-06-11] MEDS: Clopidogrel 75 MG Tab PO SCH (07:42)
[2017-06-11] MEDS: Magnesium Oxide 400 MG Tab PO SCH (07:42)
[2017-06-11] MEDS: Cyanocobalamin (Vitamin B12) 1,000 MCG Tab PO SCH (07:43)
[2017-06-11] MEDS: buPROPion 150 MG Tab.ER PO SCH (07:43)
[2017-06-11] MEDS: Multivitamin Tab PO SCH (07:43)
[2017-06-11] MEDS: Metoprolol Succinate 25 MG Tab.ER PO SCH (07:47)
[2017-06-11] MEDS: Lisinopril 20 MG Tab PO SCH (20:14)
[2017-06-11] MEDS: atorvaSTATin 40 MG Tab PO SCH (20:14)
[2017-06-11] MEDS: Tamsulosin 0.4 MG Cap.ER PO SCH (20:14)
[2017-06-11] MEDS: traZODone 50 MG Tab PO SCH (20:14)
[2017-06-12] MEDS: Levothyroxine 75 MCG Tab PO SCH (07:48)
[2017-06-12] MEDS: Folic Acid 1 MG Tab PO SCH (07:49)
[2017-06-12] MEDS: Venlafaxine 75 MG Cap.ER PO SCH (07:49)
[2017-06-12] MEDS: Magnesium Oxide 400 MG Tab PO SCH (07:49)
[2017-06-12] MEDS: Pantoprazole 40 MG Tab.CR PO SCH (07:50)
[2017-06-12] MEDS: buPROPion 150 MG Tab.ER PO SCH (07:50)
[2017-06-12] MEDS: Multivitamin Tab PO SCH (07:50)
[2017-06-12] MEDS: Clopidogrel 75 MG Tab PO SCH (07:50)
[2017-06-12] MEDS: Cyanocobalamin (Vitamin B12) 1,000 MCG Tab PO SCH (07:51)
[2017-06-12] MEDS: Metoprolol Succinate 25 MG Tab.ER PO SCH (07:51)
[2017-06-12] MEDS: traZODone 50 MG Tab PO SCH (20:34)
[2017-06-12] MEDS: Tamsulosin 0.4 MG Cap.ER PO SCH (20:34)
[2017-06-12] MEDS: atorvaSTATin 40 MG Tab PO SCH (20:35)
[2017-06-12] MEDS: Lisinopril 20 MG Tab PO SCH (20:35)
[2017-06-13] MEDS: Levothyroxine 75 MCG Tab PO SCH (07:35)
[2017-06-13] MEDS: Venlafaxine 75 MG Cap.ER PO SCH (07:55)
[2017-06-13] MEDS: Folic Acid 1 MG Tab PO SCH (07:55)
[2017-06-13] MEDS: Clopidogrel 75 MG Tab PO SCH (07:56)
[2017-06-13] MEDS: Pantoprazole 40 MG Tab.CR PO SCH (07:56)
[2017-06-13] MEDS: Magnesium Oxide 400 MG Tab PO SCH (07:56)
[2017-06-13] MEDS: Cyanocobalamin (Vitamin B12) 1,000 MCG Tab PO SCH (07:57)
[2017-06-13] MEDS: Multivitamin Tab PO SCH (07:57)
[2017-06-13] MEDS: Metoprolol Succinate 25 MG Tab.ER PO SCH (07:57)
[2017-06-13] MEDS: buPROPion 150 MG Tab.ER PO SCH (07:58)
[2017-06-13] MEDS: atorvaSTATin 40 MG Tab PO SCH (19:15)
[2017-06-13] MEDS: Tamsulosin 0.4 MG Cap.ER PO SCH (19:15)
[2017-06-13] MEDS: Lisinopril 20 MG Tab PO SCH (19:16)
[2017-06-13] MEDS: traZODone 50 MG Tab PO SCH (19:21)
[2017-06-14] MEDS: Levothyroxine 75 MCG Tab PO SCH (07:51)
[2017-06-14] MEDS: Venlafaxine 75 MG Cap.ER PO SCH (07:53)
[2017-06-14] MEDS: Clopidogrel 75 MG Tab PO SCH (07:54)
[2017-06-14] MEDS: Folic Acid 1 MG Tab PO SCH (07:54)
[2017-06-14] MEDS: Magnesium Oxide 400 MG Tab PO SCH (07:54)
[2017-06-14] MEDS: Multivitamin Tab PO SCH (07:55)
[2017-06-14] MEDS: Pantoprazole 40 MG Tab.CR PO SCH (07:55)
[2017-06-14] MEDS: Metoprolol Succinate 25 MG Tab.ER PO SCH (07:56)
[2017-06-14] MEDS: Cyanocobalamin (Vitamin B12) 1,000 MCG Tab PO SCH (07:56)
[2017-06-14] MEDS: buPROPion 150 MG Tab.ER PO SCH (07:57)
[2017-06-14] MEDS: traZODone 50 MG Tab PO SCH (19:40)
[2017-06-14] MEDS: atorvaSTATin 40 MG Tab PO SCH (19:40)
[2017-06-14] MEDS: Tamsulosin 0.4 MG Cap.ER PO SCH (19:40)
[2017-06-14] MEDS: Lisinopril 20 MG Tab PO SCH (19:40)
[2017-06-15] MEDS: Venlafaxine 75 MG Cap.ER PO SCH (07:58)
[2017-06-15] MEDS: Levothyroxine 75 MCG Tab PO SCH (07:58)
[2017-06-15] MEDS: Magnesium Oxide 400 MG Tab PO SCH (07:59)
[2017-06-15] MEDS: Folic Acid 1 MG Tab PO SCH (07:59)
[2017-06-15] MEDS: Clopidogrel 75 MG Tab PO SCH (08:00)
[2017-06-15] MEDS: Pantoprazole 40 MG Tab.CR PO SCH (08:00)
[2017-06-15] MEDS: Multivitamin Tab PO SCH (08:01)
[2017-06-15] MEDS: Metoprolol Succinate 25 MG Tab.ER PO SCH (08:01)
[2017-06-15] MEDS: Cyanocobalamin (Vitamin B12) 1,000 MCG Tab PO SCH (08:05)
[2017-06-15] MEDS: buPROPion 150 MG Tab.ER PO SCH (08:05)
[2017-06-15] MEDS: Tamsulosin 0.4 MG Cap.ER PO SCH (19:42)
[2017-06-15] MEDS: atorvaSTATin 40 MG Tab PO SCH (19:43)
[2017-06-15] MEDS: Lisinopril 20 MG Tab PO SCH (19:44)
[2017-06-15] MEDS: traZODone 50 MG Tab PO SCH (19:47)
[2017-06-16] MEDS: Levothyroxine 75 MCG Tab PO SCH (08:07)
[2017-06-16] MEDS: Venlafaxine 75 MG Cap.ER PO SCH (08:08)
[2017-06-16] MEDS: Clopidogrel 75 MG Tab PO SCH (08:09)
[2017-06-16] MEDS: Magnesium Oxide 400 MG Tab PO SCH (08:09)
[2017-06-16] MEDS: Folic Acid 1 MG Tab PO SCH (08:09)
[2017-06-16] MEDS: Multivitamin Tab PO SCH (08:10)
[2017-06-16] MEDS: Metoprolol Succinate 25 MG Tab.ER PO SCH (08:10)
[2017-06-16] MEDS: Pantoprazole 40 MG Tab.CR PO SCH (08:10)
[2017-06-16] MEDS: buPROPion 150 MG Tab.ER PO SCH (08:11)
[2017-06-16] MEDS: Cyanocobalamin (Vitamin B12) 1,000 MCG Tab PO SCH (08:11)
[2017-06-16] MEDS: Tamsulosin 0.4 MG Cap.ER PO SCH (19:39)
[2017-06-16] MEDS: traZODone 50 MG Tab PO SCH (19:39)
[2017-06-16] MEDS: Lisinopril 20 MG Tab PO SCH (19:39)
[2017-06-16] MEDS: atorvaSTATin 40 MG Tab PO SCH (19:39)
[2017-06-17] MEDS: Levothyroxine 75 MCG Tab PO SCH (07:45)
[2017-06-17] MEDS: Folic Acid 1 MG Tab PO SCH (07:46)
[2017-06-17] MEDS: Venlafaxine 75 MG Cap.ER PO SCH (07:46)
[2017-06-17] MEDS: Magnesium Oxide 400 MG Tab PO SCH (07:47)
[2017-06-17] MEDS: Clopidogrel 75 MG Tab PO SCH (07:47)
[2017-06-17] MEDS: Multivitamin Tab PO SCH (07:47)
[2017-06-17] MEDS: Pantoprazole 40 MG Tab.CR PO SCH (07:47)
[2017-06-17] MEDS: buPROPion 150 MG Tab.ER PO SCH (07:48)
[2017-06-17] MEDS: Metoprolol Succinate 25 MG Tab.ER PO SCH (07:48)
[2017-06-17] MEDS: Cyanocobalamin (Vitamin B12) 1,000 MCG Tab PO SCH (07:48)
[2017-06-17] MEDS: atorvaSTATin 40 MG Tab PO SCH (19:18)
[2017-06-17] MEDS: Tamsulosin 0.4 MG Cap.ER PO SCH (19:18)
[2017-06-17] MEDS: traZODone 50 MG Tab PO SCH (19:19)
[2017-06-17] MEDS: Lisinopril 20 MG Tab PO SCH (19:19)
[2017-06-18] MEDS: Venlafaxine 75 MG Cap.ER PO SCH (08:08)
[2017-06-18] MEDS: Levothyroxine 75 MCG Tab PO SCH (08:08)
[2017-06-18] MEDS: Folic Acid 1 MG Tab PO SCH (08:09)
[2017-06-18] MEDS: Magnesium Oxide 400 MG Tab PO SCH (08:09)
[2017-06-18] MEDS: Clopidogrel 75 MG Tab PO SCH (08:09)
[2017-06-18] MEDS: Multivitamin Tab PO SCH (08:10)
[2017-06-18] MEDS: Pantoprazole 40 MG Tab.CR PO SCH (08:10)
[2017-06-18] MEDS: Metoprolol Succinate 25 MG Tab.ER PO SCH (08:10)
[2017-06-18] MEDS: Cyanocobalamin (Vitamin B12) 1,000 MCG Tab PO SCH (08:11)
[2017-06-18] MEDS: buPROPion 150 MG Tab.ER PO SCH (08:11)
[2017-06-18] MEDS: Tamsulosin 0.4 MG Cap.ER PO SCH (19:20)
[2017-06-18] MEDS: Lisinopril 20 MG Tab PO SCH (19:21)
[2017-06-18] MEDS: atorvaSTATin 40 MG Tab PO SCH (19:21)
[2017-06-18] MEDS: traZODone 50 MG Tab PO SCH (19:21)
[2017-06-19] MEDS: Levothyroxine 75 MCG Tab PO SCH (07:52)
[2017-06-19] MEDS: Venlafaxine 75 MG Cap.ER PO SCH (07:52)
[2017-06-19] MEDS: Folic Acid 1 MG Tab PO SCH (07:53)
[2017-06-19] MEDS: Clopidogrel 75 MG Tab PO SCH (07:53)
[2017-06-19] MEDS: Magnesium Oxide 400 MG Tab PO SCH (07:53)
[2017-06-19] MEDS: Pantoprazole 40 MG Tab.CR PO SCH (07:53)
[2017-06-19] MEDS: Metoprolol Succinate 25 MG Tab.ER PO SCH (07:54)
[2017-06-19] MEDS: Multivitamin Tab PO SCH (07:54)
[2017-06-19] MEDS: Cyanocobalamin (Vitamin B12) 1,000 MCG Tab PO SCH (07:54)
[2017-06-19] MEDS: buPROPion 150 MG Tab.ER PO SCH (07:55)
[2017-06-19] MEDS: Tamsulosin 0.4 MG Cap.ER PO SCH (19:41)
[2017-06-19] MEDS: atorvaSTATin 40 MG Tab PO SCH (19:42)
[2017-06-19] MEDS: Lisinopril 20 MG Tab PO SCH (19:43)
[2017-06-19] MEDS: traZODone 50 MG Tab PO SCH (19:46)
[2017-06-19 19:47] VITALS: BP 151/78
--- NOTE | 2017-06-21 16:46 | PCM.DCSUM1 ---
Addendum entered and electronically signed by Suresh Grullon NP 06/21/17 16: 51: Discharge Summary - Discharge Data Discharge Date: 06/20/17 Discharge Disposition: DC/Tfer to Acute Hospital 02 Condition: Good - Discharge Diagnosis/Problem(s) (1) Failure to thrive SNOMED Code(s): 41954459 ICD Code: [id number] - Status: Acute (2) Frequent falls SNOMED Code(s): 169696801 ICD Code: R29.6 - REPEATED FALLS Status: Acute (3) History of CVA with residual deficit SNOMED Code(s): 929324877 ICD Code: I69.30 - UNSPECIFIED SEQUELAE OF CEREBRAL INFARCTION Status: Chronic Priority: Medium - Patient Summary/Data Consults: Consultations 06/09/17 16:22 Consult to Case Management [CONS] Routine OT Evaluation and Treatment [CONS] Routine PT Evaluation and Treatment [CONS] Routine - Discharge Plan Home Medications: Home Meds buPROPion [buPROPion XL] 300 mg PO DAILY 06/23/14 [History] Pantoprazole [ProTONIX] 40 mg PO DAILY 07/22/14 [History] Clopidogrel Bisulfate [Clopidogrel] 75 mg PO DAILY 04/15/17 [History] Levothyroxine Sodium [Synthroid] 75 mcg PO ACBREAKFAST 04/15/17 [History] Metoprolol Succinate 25 mg PO DAILY 04/15/17 [History] Venlafaxine HCl [Venlafaxine ER] 225 mg PO DAILY 04/15/17 [History] atorvaSTATin [Lipitor] 40 mg PO BEDTIME 04/15/17 [History] traZODone 50 mg PO BEDTIME 04/15/17 [History] Tamsulosin [Flomax] 0.4 mg PO BEDTIME #0 04/17/17 [Rx] Lisinopril 20 mg PO BEDTIME 05/17/17 [History] Cyanocobalamin (Vitamin B-12) [Vitamin B-12] 1,000 mcg PO DAILY 06/04/17 [ History] Folic Acid 2 tab PO DAILY 06/04/17 [History] Magnesium Gluconate 500 mg PO DAILY 06/04/17 [History] - Patient Data Vitals - Most Recent: Last Vital Signs Temp 36.8 C 06/19/17 08:00 Pulse 83 06/19/17 08:00 Resp 18 06/19/17 08:00 BP 151/78 H 06/19/17 19:43 Pulse Ox 94 L 06/19/17 14:21 Weight - Most Recent: 85.139 kg Med Orders - Current: Current Medications Discontinued Medications Acetaminophen (Tylenol) 650 mg PO Q4H PRN PRN Reason: Pain Atorvastatin Calcium (Lipitor) 40 mg PO BEDTIME [facility] Last Admin: 06/19/17 19:42 Dose: 40 mg Bisacodyl (Dulcolax) 5 mg PO DAILY PRN PRN Reason: Constipation Bupropion HCl (Wellbutrin Xl) 300 mg PO DAILY [facility] Last Admin: 06/19/17 07:55 Dose: 300 mg Clopidogrel Bisulfate (Plavix) 75 mg PO DAILY [facility] Last Admin: 06/19/17 07:53 Dose: 75 mg Cyanocobalamin (Vitamin B12) 1,000 mcg PO DAILY [facility] Last Admin: 06/19/17 07:54 Dose: 1,000 mcg Folic Acid (Folic Acid) 1 mg PO DAILY [facility] Last Admin: 06/19/17 07:53 Dose: 1 mg Levothyroxine Sodium (Levothyroxine) 75 mcg PO ACBREAKFAST [facility] Last Admin: 06/19/17 07:52 Dose: 75 mcg Lisinopril (Prinivil) 20 mg PO BEDTIME [facility] Last Admin: 06/19/17 19:43 Dose: 20 mg Lorazepam (Ativan) 0.5 mg PO TID PRN PRN Reason: Anxiety Last Admin: 06/11/17 20:15 Dose: 0.5 mg Magnesium Hydroxide (Milk Of Magnesia) 30 ml PO Q12H PRN PRN Reason: Constipation Magnesium Oxide (Magnesium Oxide) 400 mg PO DAILY [facility] Last Admin: 06/19/17 07:53 Dose: 400 mg Metoprolol Succinate (Toprol Xl) 25 mg PO DAILY [facility] Last Admin: 06/19/17 07:54 Dose: 25 mg Multivitamins/Minerals/Vitamin C (Tab-A-Caroline) 1 tab PO DAILY [facility] Last Admin: 06/19/17 07:54 Dose: 1 tab Magnesium Gluconate (500mg) 500 mg PO DAILY [facility] Last Admin: 06/10/17 16:55 Dose: Not Given Pantoprazole Sodium (Protonix) 40 mg PO DAILY [facility] Last Admin: 06/19/17 07:53 Dose: 40 mg Tamsulosin HCl (Flomax) 0.4 mg PO BEDTIME [facility] Last Admin: 06/19/17 19:41 Dose: 0.4 mg Trazodone HCl (Trazodone) 50 mg PO BEDTIME [facility] Last Admin: 06/19/17 19:46 Dose: 50 mg Venlafaxine HCl (Effexor Xr) 225 mg PO DAILY [facility] Last Admin: 06/19/17 07:52 Dose: 225 mg Original Note: Discharge Summary - Hospital Course Free Text/Narrative:: Admitted to the swing bed unit for strengthening secondary of recent falls which are likely secondary of stroke (CVA) history. Experienced weakness and syncopal episode unresponsive responding to sternal rub per nursing staff when he was up to the bathroom, was transferred to the emergency department at which time stroke code was called and transferred to facility of higher acuity for workup and treatment. Please refer to emergency department documentation for details. - Discharge Data Discharge Date: 06/20/17 Discharge Disposition: DC/Tfer to Acute Hospital 02 Condition: Good - Patient Summary/Data Consults: Consultations 06/09/17 16:22 Consult to Case Management [CONS] Routine OT Evaluation and Treatment [CONS] Routine PT Evaluation and Treatment [CONS] Routine - Discharge Plan Home Medications: Home Meds buPROPion [buPROPion XL] 300 mg PO DAILY 06/23/14 [History] Pantoprazole [ProTONIX] 40 mg PO DAILY 07/22/14 [History] Clopidogrel Bisulfate [Clopidogrel] 75 mg PO DAILY 04/15/17 [History] Levothyroxine Sodium [Synthroid] 75 mcg PO ACBREAKFAST 04/15/17 [History] Metoprolol Succinate 25 mg PO DAILY 04/15/17 [History] Venlafaxine HCl [Venlafaxine ER] 225 mg PO DAILY 04/15/17 [History] atorvaSTATin [Lipitor] 40 mg PO BEDTIME 04/15/17 [History] traZODone 50 mg PO BEDTIME 04/15/17 [History] Tamsulosin [Flomax] 0.4 mg PO BEDTIME #0 04/17/17 [Rx] Lisinopril 20 mg PO BEDTIME 05/17/17 [History] Cyanocobalamin (Vitamin B-12) [Vitamin B-12] 1,000 mcg PO DAILY 06/04/17 [ History] Folic Acid 2 tab PO DAILY 06/04/17 [History] Magnesium Gluconate 500 mg PO DAILY 06/04/17 [History] - General Info Date of Service: 06/20/17 Subjective Update: Please refer to Dr. John blanc's emergency department documentation and transfer documentation - Patient Data Vitals - Most Recent: Last Vital Signs Temp 36.8 C 06/19/17 08:00 Pulse 83 06/19/17 08:00 Resp 18 06/19/17 08:00 BP 151/78 H 06/19/17 19:43 Pulse Ox 94 L 06/19/17 14:21 Weight - Most Recent: 85.139 kg Med Orders - Current: Current Medications Discontinued Medications Acetaminophen (Tylenol) 650 mg PO Q4H PRN PRN Reason: Pain Atorvastatin Calcium (Lipitor) 40 mg PO BEDTIME [facility] Last Admin: 06/19/17 19:42 Dose: 40 mg Bisacodyl (Dulcolax) 5 mg PO DAILY PRN PRN Reason: Constipation Bupropion HCl (Wellbutrin Xl) 300 mg PO DAILY [facility] Last Admin: 06/19/17 07:55 Dose: 300 mg Clopidogrel Bisulfate (Plavix) 75 mg PO DAILY [facility] Last Admin: 06/19/17 07:53 Dose: 75 mg Cyanocobalamin (Vitamin B12) 1,000 mcg PO DAILY [facility] Last Admin: 06/19/17 07:54 Dose: 1,000 mcg Folic Acid (Folic Acid) 1 mg PO DAILY [facility] Last Admin: 06/19/17 07:53 Dose: 1 mg Levothyroxine Sodium (Levothyroxine) 75 mcg PO ACBREAKFAST [facility] Last Admin: 06/19/17 07:52 Dose: 75 mcg Lisinopril (Prinivil) 20 mg PO BEDTIME [facility] Last Admin: 06/19/17 19:43 Dose: 20 mg Lorazepam (Ativan) 0.5 mg PO TID PRN PRN Reason: Anxiety Last Admin: 06/11/17 20:15 Dose: 0.5 mg Magnesium Hydroxide (Milk Of Magnesia) 30 ml PO Q12H PRN PRN Reason: Constipation Magnesium Oxide (Magnesium Oxide) 400 mg PO DAILY [facility] Last Admin: 06/19/17 07:53 Dose: 400 mg Metoprolol Succinate (Toprol Xl) 25 mg PO DAILY [facility] Last Admin: 06/19/17 07:54 Dose: 25 mg Multivitamins/Minerals/Vitamin C (Tab-A-Caroline) 1 tab PO DAILY [facility] Last Admin: 06/19/17 07:54 Dose: 1 tab Magnesium Gluconate (500mg) 500 mg PO DAILY [facility] Last Admin: 06/10/17 16:55 Dose: Not Given Pantoprazole Sodium (Protonix) 40 mg PO DAILY [facility] Last Admin: 06/19/17 07:53 Dose: 40 mg Tamsulosin HCl (Flomax) 0.4 mg PO BEDTIME [facility] Last Admin: 06/19/17 19:41 Dose: 0.4 mg Trazodone HCl (Trazodone) 50 mg PO BEDTIME [facility] Last Admin: 06/19/17 19:46 Dose: 50 mg Venlafaxine HCl (Effexor Xr) 225 mg PO DAILY [facility] Last Admin: 06/19/17 07:52 Dose: 225 mg - Exam Physical Findings Comments:: Please refer to Dr. John blanc's emergency department documentation and transfer documentation *Q Meaningful Use (DIS) - VTE *Q VTE Criteria *Q: - Stroke *Q Stroke Criteria *Q: - AMI *Q AMI Criteria *Q:
== END 2017-06-20 01:39 | DRG 948 ==
LOC: LL.SWG 16:40
PROVIDERS: ADMIT Family Medicine; ATTEND Family Medicine
DX: R53.1 Weakness (principal); R29.6 Repeated falls; I69.30 Unspecified sequelae of cerebral infarction; K21.9 Gastro-esophageal reflux disease without esophagitis; I10 Essential (primary) hypertension; E78.5 Hyperlipidemia, unspecified; E03.9 Hypothyroidism, unspecified; R62.7 Adult failure to thrive
CPT/HCPCS: 70450; 82962; 97110-GO; 97110-GP; 97112-GP; 97116-GP; 97161-GP; 97165-GO; 97530-GO; 97530-GP; A9270-GY

== ENCOUNTER 2017-06-19 23:38 | Emergency (ER) | payer MEDICARE, BC ==
--- NOTE | 2017-06-19 23:46 | EDM.PDOC ---
ED HPI GENERAL MEDICAL PROBLEM - General Chief Complaint: Neurological Problem Stated Complaint: increased slurred speech Time Seen by Provider: 06/19/17 23:38 Source of Information: Reports: Patient, Old Records ([facility] EMR. No paper hospital chart available.). Denies: Family History Limitations: Reports: No Limitations - History of Present Illness INITIAL COMMENTS - FREE TEXT/NARRATIVE: The patient was brought to the emergency room via wheelchair from our swing bed facility for evaluation of the neurological deficits as below with stroke code called by me on patient's arrival to this facility. Per the nurse's history the patient had a minor fall at about 23:20 hours this evening with moderate diaphoresis, progressive dysarthria, and progressive chronic left-sided facial hemiparesis at that time. No history of significant head injury, loss of consciousness, other change in mental status, sedation, seizure activity, neck/ back pain, other neurological deficits, or other complaints or injuries. The patient denies any chest pain/pressure, heart flutter, dizziness, orthostasis, orthopnea, paresthesias, recent decreased exercise tolerance, or any other anginal-type symptoms, although his overall activity level is low secondary to his previous CVA. No recent history of abdominal pain, heartburn, nausea, diarrhea, melena, gross hematochezia, or any food intolerance, including fatty foods, etc.. The patient also denies any recent fever, cough, wheezing, dyspnea , etc.. He denies any pain or discomfort, including headaches, visual changes, etc. Onset: Today, Unknown/Unsure Onset Date: 06/19/17 Onset Time: 23:20 Duration: Constant (And stable neurological findings), Resolved Prior to Arrival (Diaphoresis) Location: Reports: Other (No pain). Denies: Head, Face, Neck, Chest, Abdomen, Back, Pelvis, Upper Extremity, Left, Upper Extremity, Right, Radiates to Associated Symptoms: Reports: Diaphoresis, Weakness (As above). Denies: Confusion, Fever/Chills, Headaches, Loss of Appetite, Malaise, Nausea/Vomiting, Seizure, Shortness of Breath, Syncope - Related Data Allergies Allergy/AdvReac Type Severity Reaction Status Date / Time dicloxacillin AdvReac Nausea Verified 06/20/17 00:09 Home Meds: Home Meds buPROPion [buPROPion XL] 300 mg PO DAILY 06/23/14 [History] Pantoprazole [ProTONIX] 40 mg PO DAILY 07/22/14 [History] Clopidogrel Bisulfate [Clopidogrel] 75 mg PO DAILY 04/15/17 [History] LORazepam 0.5 mg PO TID PRN 04/15/17 [History] Levothyroxine Sodium [Synthroid] 75 mcg PO ACBREAKFAST 04/15/17 [History] Metoprolol Succinate 25 mg PO DAILY 04/15/17 [History] Venlafaxine HCl [Venlafaxine ER] 225 mg PO DAILY 04/15/17 [History] atorvaSTATin [Lipitor] 40 mg PO BEDTIME 04/15/17 [History] traZODone 50 mg PO BEDTIME 04/15/17 [History] Tamsulosin [Flomax] 0.4 mg PO BEDTIME #0 04/17/17 [Rx] Lisinopril 20 mg PO BEDTIME 05/17/17 [History] Acetaminophen 650 mg PO Q4H PRN 06/04/17 [History] Cyanocobalamin (Vitamin B-12) [Vitamin B-12] 1,000 mcg PO DAILY 06/04/17 [ History] Folic Acid 2 tab PO DAILY 06/04/17 [History] Magnesium Gluconate 500 mg PO DAILY 06/04/17 [History] Multivitamin [Multivitamins] 1 each PO DAILY 06/04/17 [History] Past Medical History Cardiovascular History: Reports: Arrhythmia, High Cholesterol, Hypertension Respiratory History: Reports: COPD, Pneumonia, Recurrent, Pulmonary Fibrosis Gastrointestinal History: Reports: GERD, GI Bleed, PUD Genitourinary History: Reports: BPH, Chronic Renal Insuffiency, Renal Disease, Retention, Urinary, Other (See Below) Other Genitourinary History: nocturia, acute renal failure secondary to dehydration on 04/15/17 Musculoskeletal History: Reports: Arthritis, Back Pain, Chronic, Osteoarthritis , Other (See Below) Other Musculoskeletal History: Bursitis, elbow d/o, chronic right foot pain Neurological History: Reports: CVA, Other (See Below). 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 falls with the patient requiring one assist and walker use, chronic fatigue Psychiatric History: Reports: Anxiety, Depression Endocrine/Metabolic History: Reports: Hypothyroidism, Other (See Below). Denies : Diabetes, Type I, Diabetes, Type II, IDDM Other Endocrine/Metabolic History: hyperglycemia, hypomagnesemia, B12 deficiency Hematologic History: Reports: Anemia, B12 Deficiency, Other (See Below) Other Hematologic History: bruises easily Immunologic History: Reports: Other (See Below) Other Immunologic History: Hypoalbuminemia - Infectious Disease History Infectious Disease History: Reports: Measles, Mumps - Past Imaging History Past Imaging History: Reports: CAT Scan (Multiple CTs of the brain with last evaluation on 06/09/17 with previous evaluations on 06/04/17, 04/15/17, 07/22/14 and 06/23/14), MRI (Brain on 02/23/16) Social & Family History - Family History Cardiac: Reports: CAD, CA, Stent, Other (See Below) Other Cardiac Family History: Father with coronary artery disease, mother with coronary artery disease and acute CA with PTCA/stent placement : Reports: Other (See Below) Other Family History: Father with BPH Psychiatric: Reports: Anxiety, Depression, Other (See Below) Other Psychiatric Family History: Mother with anxiety depression disorder Endocrine/Metabolic: Reports: Diabetes, type II, Other (See Below) Other Endocrine/Metabolic Family History: Father with diabetes mellitus - Tobacco Use Smoking Status *Q: Current Every Day Smoker Tobacco Use Within Last Twelve Months: Snuff/Dip Years of Tobacco use: 40 Packs/Tins Daily: 0.2 Packs/Tins Daily Comment: chewing tobacco use of one can per week Smoking Cessation Information Provided To Patient: No (Patient transferred) Second Hand Smoke Exposure: No - Caffeine Use Caffeine Use: Reports: Coffee - Alcohol Use Days Per Week of Alcohol Use: 4 Number of Drinks Per Day: 1 Total Drinks Per Week: 4 - Recreational Drug Use Recreational Drug Use: No - Living Situation & Occupation Living situation: Reports: (2 children), Extended Care Facility (Swing bed unit at [facility]) ED ROS GENERAL - Review of Systems Review Of Systems: ROS reveals no pertinent complaints other than HPI. ED EXAM, NEURO - Physical Exam Exam: See Below Exam Limited By: No Limitations General Appearance: Alert, WD/WN, No Apparent Distress Eye Exam: Bilateral Eye: EOMI, Normal Fundi, Normal Inspection (No nystagmus), Periorbital Changes Ears: Normal External Exam, Normal Canal, Hearing Grossly Normal, Normal TMs Nose: Normal Inspection, Normal Mucosa, No Blood EKG INTERPRETATION EKG Date: 06/19/17 Time: 23:57 Rhythm: NSR Rate (Beats/Min): 69 [place]: Normal (Left cardiac axis) P-Wave: Present (Diffuse biphasic P wavesmild) QRS: Normal (QRS interval 0.09 seconds with resolution of previous T-wave inversion in lead V1) ST-T: Normal QT: Normal NC/PQ Interval: 0.18 seconds Comparison: Change From Previous EKG (As above since last EKG on 06/04/17) EKG Interpretation Comments: No acute ischemic changes Course - Vital Signs Last Recorded V/S: Last Vital Signs Temp 36.7 C 06/20/17 01:36 Pulse 72 06/20/17 01:36 Resp 12 06/20/17 01:36 BP 134/74 06/20/17 01:36 Pulse Ox 98 06/20/17 01:38 Vital Signs - 24 hr 06/19/17 06/19/17 06/20/17 23:40 23:47 00:15 Temperature [ 36.7 C 36.7 C 36.7 C Temporal] Pulse, 72 72 74 Peripheral [ Pulse Oximetry] Respiratory 15 15 16 Rate Blood Pressure 158/93 H 158/93 H 141/89 H [Left Upper Arm ] O2 Sat by Pulse 96 96 96 Oximetry O2 Sat by Pulse Oximetry [ Nasal Cannula] 06/20/17 06/20/17 06/20/17 00:30 00:45 01:36 Temperature [ 36.8 C 36.7 C Temporal] Pulse, 72 73 72 Peripheral [ Pulse Oximetry] Respiratory 16 14 12 Rate Blood Pressure 131/86 137/78 134/74 [Left Upper Arm ] O2 Sat by Pulse 99 98 98 Oximetry O2 Sat by Pulse Oximetry [ Nasal Cannula] 06/20/17 01:38 Temperature [ Temporal] Pulse, Peripheral [ Pulse Oximetry] Respiratory Rate Blood Pressure [Left Upper Arm ] O2 Sat by Pulse Oximetry O2 Sat by Pulse 98 Oximetry [ Nasal Cannula] - Orders/Labs/Meds Orders: Active Orders 24 hr Category Date Time Status Blood Glucose Check, Bedside [] STAT Care 06/19/17 23:47 Active Cardiac Monitoring [RC] STAT Care 06/19/17 23:47 Active EKG Documentation Completion [RC] ASDIRECTED Care 06/19/17 23:47 Active NIH Stroke Scale [RC] ASDIRECTED Care 06/19/17 23:47 Active Oxygen Therapy, ED [RC] CONTINUOUS Care 06/19/17 23:47 Active Peripheral IV Care [RC] . DIRECTED Care 06/19/17 23:47 Active Pulse Oximetry [RC] CONTINUOUS Care 06/19/17 23:47 Active Up With Assistance [RC] ASDIRECTED Care 06/19/17 23:47 Active Vital Signs [RC] PFP Care 06/19/17 23:47 Active Nothing per Oral Now Diet [DIET] Diet 06/19/17 Breakfast Active Chest 1V Frontal [CR] Stat Exams 06/19/17 23:47 Taken Head wo Cont [CT] Stat Exams 06/19/17 23:47 Taken PROLACTIN [REF] Stat Lab 06/19/17 23:50 Received Sodium Chloride 0.9% [Saline Flush] Med 06/19/17 23:47 Active 10 ml FLUSH ASDIRECTED PRN Obtain Past Medical Record [OM.PC] Stat Oth 06/19/17 23:47 Active Peripheral IV Insertion Adult [OM.PC] Stat Oth 06/19/17 23:47 Ordered Resuscitation Status Stat Resus Stat 06/19/17 23:47 Ordered Medication Orders Sodium Chloride (Saline Flush) 10 ml FLUSH ASDIRECTED PRN PRN Reason: Keep Vein Open Labs: Laboratory Tests 06/19/17 06/19/17 06/19/17 Range/Units 23:50 23:50 23:50 WBC 6.1 (4.0-10.2) K/uL RBC 4.12 L (4.33-5.41) M/uL Hgb 13.9 D (13.1-16.8) g/dL Hct 41.7 (39.0-49.0) % MCV 101.2 H (84.0-98.0) fL MCH 33.7 H (28.2-33.3) pg MCHC 33.3 (31.7-36.0) g/dL RDW 14.1 (11.2-14.1) % Plt Count 288 (150-350) K/uL Neut % (Auto) 67.9 (45.0-80.0) % Lymph % (Auto) 21.4 (10.0-50.0) % Graham % (Auto) 9.1 (2.0-14.0) % Eos % (Auto) 1.3 (0.0-5.0) % Baso % (Auto) 0.3 (0.0-2.0) % Neut # (Auto) 4.16 (1.40-7.00) K/uL Lymph # (Auto) 1.31 (0.50-3.50) K/uL Graham # (Auto) 0.56 (0.00-1.00) K/uL Eos # (Auto) 0.08 (0.00-0.50) K/uL Baso # (Auto) 0.02 (0.00-0.20) K/uL PT 10.7 (9.8-11.7) SEC INR 1.0 APTT 27354315.0 H* (23.5-30.0) SEC D-Dimer, Quantitative 877 H (0-400) ng/mL Sodium (136-145) mmol/L Potassium (3.5-5.1) mmol/L Chloride (98-107) mmol/L Carbon Dioxide (21.0-32.0) mmol/L BUN (7-18) mg/dL Creatinine (0.51-1.17) mg/dL Est Cr Clr Drug Dosing mL/min Estimated GFR (MDRD) mL/min Glucose (74-106) mg/dL Lactic Acid (0.4-2.0) mmol/L Uric Acid (2.6-7.2) mg/dL Calcium (8.5-10.1) mg/dL Magnesium (1.8-2.4) mg/dL Total Bilirubin (0.2-1.0) mg/dL AST (15-37) U/L ALT (12-78) U/L Alkaline Phosphatase (46-116) IU/L Creatine Kinase (26-308) U/L Creatine Kinase Index (0.0-2.5) % CK-MB (CK-2) (0.00-3.60) ng/mL Troponin I (0.000-0.056) ng/mL [id number]-[id number]-Vvxekixdqar Pept (0-125) pg/mL Total Protein (6.4-8.2) g/dL Albumin (3.4-5.0) g/dL TSH, Ultra Sensitive (0.358-3.740) mIU/mL 06/19/17 06/19/17 Range/Units 23:50 23:50 WBC (4.0-10.2) K/uL RBC (4.33-5.41) M/uL Hgb (13.1-16.8) g/dL Hct (39.0-49.0) % MCV (84.0-98.0) fL MCH (28.2-33.3) pg MCHC (31.7-36.0) g/dL RDW (11.2-14.1) % Plt Count (150-350) K/uL Neut % (Auto) (45.0-80.0) % Lymph % (Auto) (10.0-50.0) % [place] % (Auto) (2.0-14.0) % Eos % (Auto) (0.0-5.0) % Baso % (Auto) (0.0-2.0) % Neut # (Auto) (1.40-7.00) K/uL Lymph # (Auto) (0.50-3.50) K/uL Graham # (Auto) (0.00-1.00) K/uL Eos # (Auto) (0.00-0.50) K/uL Baso # (Auto) (0.00-0.20) K/uL PT (9.8-11.7) SEC INR APTT (23.5-30.0) SEC D-Dimer, Quantitative (0-400) ng/mL Sodium 139 (136-145) mmol/L Potassium 4.2 (3.5-5.1) mmol/L Chloride 106 (98-107) mmol/L Carbon Dioxide 25.2 (21.0-32.0) mmol/L BUN 15 (7-18) mg/dL Creatinine 1.18 H (0.51-1.17) mg/dL Est Cr Clr Drug Dosing 73.98 mL/min Estimated GFR (MDRD) > 60 mL/min Glucose 99 (74-106) mg/dL Lactic Acid 1.3 (0.4-2.0) mmol/L Uric Acid 5.9 (2.6-7.2) mg/dL Calcium 8.9 (8.5-10.1) mg/dL Magnesium 1.9 (1.8-2.4) mg/dL Total Bilirubin 0.3 (0.2-1.0) mg/dL AST 20 (15-37) U/L ALT 23 (12-78) U/L Alkaline Phosphatase 179 H (46-116) IU/L Creatine Kinase 55 (26-308) U/L Creatine Kinase Index 1.8 (0.0-2.5) % CK-MB (CK-2) 1.00 (0.00-3.60) ng/mL Troponin I 0.000 (0.000-0.056) ng/mL [id number]-[id number]-Bwdjkjiulfw Pept 130 H (0-125) pg/mL Total Protein 7.0 (6.4-8.2) g/dL Albumin 3.2 L (3.4-5.0) g/dL TSH, Ultra Sensitive 8.704 H (0.358-3.740) mIU/mL Stat Accu-Chek on patient's arrival 95 mg percent Meds: Medications Generic Name Dose Route Start Last Admin Trade Name Freq PRN Reason Stop Dose Admin Sodium Chloride 10 ml 06/19/17 23:47 Saline Flush FLUSH ASDIRECTED PRN Keep Vein Open Discontinued Medications Generic Name Dose Route Start Last Admin Trade Name Freq PRN Reason Stop Dose Admin Famotidine 40 mg 06/19/17 23:47 Pepcid IVPUSH 06/19/17 23:48 ONETIME ONE - Radiology Interpretation Free Text/Narrative:: waistline joiner shows normal sinus rhythm with heart rate in the 60s to 70s with no ectopy or arrhythmia Telephone consultation at 00:12 hours with the radiology department at [facility] with preliminary verbal report of noncontrast CT scan of the head showing no acute findings Chest x-ray, portable, shows evidence of moderate COPD changes with mild prominence of the proximal aortic arch but no cardiomegaly, CHF, pulmonary infiltrates, pneumothorax, etc. CT Results Date: 06/20/17 CT Results Time: 00:12 Departure - Departure Time of Disposition: 01:15 Disposition: DC/Tfer to Acute Hospital 02 Condition: Fair Clinical Impression: Mixed anxiety depressive disorder, Peptic reflux disease, Renal insufficiency, Snuff user, D-dimer, elevated CVA (cerebral vascular accident) Qualifiers: CVA mechanism: unspecified Qualified Code(s): I63.9 - Cerebral infarction, unspecified COPD (chronic obstructive pulmonary disease) Qualifiers: COPD type: COPD with acute lower respiratory infection Qualified Code(s): J44.0 - Chronic obstructive pulmonary disease with acute lower respiratory infection Hypertension Qualifiers: Hypertension type: essential hypertension Qualified Code(s): I10 - Essential ( primary) hypertension Hyperlipidemia Qualifiers: Hyperlipidemia type: unspecified Qualified Code(s): E78.5 - Hyperlipidemia, unspecified Hypothyroidism Qualifiers: Hypothyroidism type: acquired Qualified Code(s): E03.9 - Hypothyroidism, unspecified Arrhythmia Qualifiers: Arrhythmia type: unspecified cardiac arrhythmia Qualified Code(s): I49.9 - Cardiac arrhythmia, unspecified - Discharge Information Forms: ED Department Discharge, Interfacility Transfer EMTALA - Problem List & Annotations (1) CVA (cerebral vascular accident) SNOMED Code(s): 962736011 Code(s): I63.9 - CEREBRAL INFARCTION, UNSPECIFIED Status: Acute Priority : High Current Visit: Yes Onset Date: 06/20/17 Annotation/Comment:: Progressive neurological deficits as above with stroke code called by this physician immediately upon patient's arrival to the emergency room. Neurological status stable at time of transfer. Telephone consultation at 00:[address] Joseph, neurologist at [facility], who does accept the patient for further treatment and evaluation in their emergency room. He does agree to notify the emergency room physicians concerning this transfer with no further treatment recommendations given at this time Qualifiers: CVA mechanism: unspecified Qualified Code(s): I63.9 - Cerebral infarction, unspecified (2) D-dimer, elevated SNOMED Code(s): 348178724 Code(s): R79.89 - OTHER SPECIFIED ABNORMAL FINDINGS OF BLOOD CHEMISTRY Status: Acute Priority: High Current Visit: Yes Onset Date: 06/19/17 Annotation/Comment:: D-dimer elevation possibly secondary to CVA. No clinical evidence of DVT or PE with further workup by accepting physicians depending on his clinical course (3) COPD (chronic obstructive pulmonary disease) SNOMED Code(s): 36761681 Code(s): J44.9 - CHRONIC OBSTRUCTIVE PULMONARY DISEASE, UNSPECIFIED Status : Acute Priority: Medium Current Visit: Yes Annotation/Comment:: Evidence of COPD by chest x-ray. Patient may benefit from PFTs with no recent history of recent fever, bronchitic type symptoms, aspiration, etc. Qualifiers: COPD type: COPD with acute lower respiratory infection Qualified Code(s): J44.0 - Chronic obstructive pulmonary disease with acute lower respiratory infection (4) Hyperglycemia SNOMED Code(s): 61474513 Code(s): R73.9 - HYPERGLYCEMIA, UNSPECIFIED Status: Acute Priority: Medium Current Visit: No Onset Date: ~05/17/17 Annotation/Comment:: No previous history of diabetes. Glycosylated hemoglobin was normal at 5.1 mg percent on 04/20/17. Patient is already on a heart healthy diet secondary to his hyperlipidemia and previous CVA (5) Hyperlipidemia SNOMED Code(s): 48356967 Code(s): E78.5 - HYPERLIPIDEMIA, UNSPECIFIED Status: Acute Priority: Medium Current Visit: Yes Annotation/Comment:: Currently under therapy Qualifiers: Hyperlipidemia type: unspecified Qualified Code(s): E78.5 - Hyperlipidemia , unspecified (6) Hypertension SNOMED Code(s): 43855719 Code(s): I10 - ESSENTIAL (PRIMARY) HYPERTENSION Status: Chronic Priority : Medium Current Visit: Yes Annotation/Comment:: Blood pressures stable in the emergency room Qualifiers: Hypertension type: essential hypertension Qualified Code(s): I10 - Essential (primary) hypertension (7) Mixed anxiety depressive disorder SNOMED Code(s): 460201737 Code(s): F41.8 - OTHER SPECIFIED ANXIETY DISORDERS Status: Chronic Priority: Medium Current Visit: Yes Annotation/Comment:: Stable by history. (8) Peptic reflux disease SNOMED Code(s): 82434534 Code(s): K21.9 - GASTRO-ESOPHAGEAL REFLUX DISEASE WITHOUT ESOPHAGITIS Status: Chronic Priority: Medium Current Visit: Yes Annotation/Comment:: Stable by history with IV Pepcid inadvertently not given despite previous orders. No abdominal pain or evidence of recent GI bleeding (9) Renal insufficiency SNOMED Code(s): 649329576, 448690738 Code(s): N28.9 - DISORDER OF KIDNEY AND URETER, UNSPECIFIED Status: Chronic Priority: Medium Current Visit: Yes Annotation/Comment:: Stable (10) Hypothyroidism SNOMED Code(s): 02613685 Code(s): E03.9 - HYPOTHYROIDISM, UNSPECIFIED Status: Chronic Priority: Medium Current Visit: Yes Annotation/Comment:: TSH mildly elevated today. Consider medication adjustment by accepting physicians Qualifiers: Hypothyroidism type: acquired Qualified Code(s): E03.9 - Hypothyroidism, unspecified (11) Arrhythmia SNOMED Code(s): 366916522 Code(s): I49.9 - CARDIAC ARRHYTHMIA, UNSPECIFIED Status: Chronic Priority : Medium Current Visit: Yes Annotation/Comment:: History of unknown type of cardiac arrhythmia with mild BNP elevation but otherwise negative cardiac enzymes and no chest pain or recent anginal-type symptoms other than some nonspecific diaphoresis as above Qualifiers: Arrhythmia type: unspecified cardiac arrhythmia Qualified Code(s): I49.9 - Cardiac arrhythmia, unspecified - Problem List Review Problem List Initiated/Reviewed/Updated: Yes - My Orders Last 24 Hours: My Active Orders 06/19/17 23:47 Blood Glucose Check, Bedside [RC] STAT Cardiac Monitoring [RC] STAT EKG Documentation Completion [RC] ASDIRECTED NIH Stroke Scale [RC] ASDIRECTED Oxygen Therapy, ED [RC] CONTINUOUS Peripheral IV Care [RC] . DIRECTED Pulse Oximetry [RC] CONTINUOUS Up With Assistance [RC] ASDIRECTED Vital Signs [RC] PFP Chest 1V Frontal [CR] Stat Head wo Cont [CT] Stat Sodium Chloride 0.9% [Saline Flush] 10 ml FLUSH ASDIRECTED PRN Obtain Past Medical Record [OM.PC] Stat Peripheral IV Insertion Adult [OM.PC] Stat Resuscitation Status Stat 06/19/17 23:50 PROLACTIN [REF] Stat 06/19/17 Breakfast Nothing per Oral Now Diet [DIET] - Assessment/Plan Last 24 Hours: My Active Orders 06/19/17 23:47 Blood Glucose Check, Bedside [RC] STAT Cardiac Monitoring [RC] STAT EKG Documentation Completion [RC] ASDIRECTED NIH Stroke Scale [RC] ASDIRECTED Oxygen Therapy, ED [RC] CONTINUOUS Peripheral IV Care [RC] . DIRECTED Pulse Oximetry [RC] CONTINUOUS Up With Assistance [RC] ASDIRECTED Vital Signs [RC] PFP Chest 1V Frontal [CR] Stat Head wo Cont [CT] Stat Sodium Chloride 0.9% [Saline Flush] 10 ml FLUSH ASDIRECTED PRN Obtain Past Medical Record [OM.PC] Stat Peripheral IV Insertion Adult [OM.PC] Stat Resuscitation Status Stat 06/19/17 23:50 PROLACTIN [REF] Stat 06/19/17 Breakfast Nothing per Oral Now Diet [DIET] Assessment:: As above Plan: As above. Extensive precautions were given to the patient, who is in agreement with the treatment plan. Ambulance transfer with field crop technical officer accompaniment
[2017-06-19] MEDS ORDERED: Sodium Chloride 0.9% 10 ML Syringe FLUSH PRN (23:47)
[2017-06-19] MEDS ORDERED: Famotidine 20 MG/2 ML SDV IVPUSH ONE (23:47)
[2017-06-20 00:43] LABS: CHLORIDE,CL 106 mmol/L (98-107); SODIUM,NA 139 mmol/L (136-145)
[2017-06-20 01:38] VITALS: BP 134/74
== END 2017-06-20 01:15 ==
LOC: LL.ED 23:38
DX: I63.9 Cerebral infarction, unspecified (principal); I40.9 Acute myocarditis, unspecified; E78.5 Hyperlipidemia, unspecified; J44.0 Chronic obstructive pulmonary disease with (acute) lower respiratory infection; E03.9 Hypothyroidism, unspecified; R79.89 Other specified abnormal findings of blood chemistry; F41.8 Other specified anxiety disorders; E78.00 Pure hypercholesterolemia, unspecified; J44.9 Chronic obstructive pulmonary disease, unspecified; K21.9 Gastro-esophageal reflux disease without esophagitis; I12.9 Hypertensive chronic kidney disease with stage 1 through stage 4 chronic kidney disease, or unspecified chronic kidney disease; N18.9 Chronic kidney disease, unspecified; M19.90 Unspecified osteoarthritis, unspecified site; F17.210 Nicotine dependence, cigarettes, uncomplicated; Z88.1 Allergy status to other antibiotic agents; Z87.01 Personal history of pneumonia (recurrent); Z79.899 Other long term (current) drug therapy; Z86.73 Personal history of transient ischemic attack (TIA), and cerebral infarction without residual deficits; Z86.79 Personal history of other diseases of the circulatory system; I49.9 Cardiac arrhythmia, unspecified
CPT/HCPCS: 36000; 36415; 70450; 71010; 80053; 82550; 82553; 83605; 83735; 83880; 84146; 84443; 84484; 84550; 85025; 85379; 85610; 85730; 93005; 99285; J7050

== ENCOUNTER 2017-06-21 04:15 | Inpatient (IN) | payer MEDICARE, BC ==
[2017-06-21] MEDS ORDERED: Acetaminophen 325 MG Tab PO PRN (16:00)
--- NOTE | 2017-06-21 16:36 | PCM.HP ---
H&P History of Present Illness - General Date of Service: 06/21/17 Admit Problem/Dx: Admission Diagnosis/Problem Admission Diagnosis/Problem CVA, Cerebrovascular accident Source of Information: Patient, Family (), Old Records ([facility] chart/EMR), Other (Limited transfer records from [facility] and [facility] EMR) History Limitations: Reports: No Limitations - History of Present Illness Initial Comments - Free Text/Narative: The patient is being readmitted to our swing bed unit under skilled care secondary to recent suspected repeat CVA on 06/19/17 during his previous swing bed care in this facility. I did evaluate the patient in the emergency room in this facility on 06/19 with subsequent transfer to [facility] with extensive workup as below. He is back to his normal baseline with suspected diagnosis by the [place] physicians of either a TIA versus hypotension secondary to his medical therapy, including Flomax, etc. The patient denies any chest pain/pressure, heart flutter, dizziness, orthostasis, orthopnea, diaphoresis, paresthesias, recent decreased exercise tolerance, or any other anginal-type symptoms. No recent history of abdominal pain, heartburn, nausea, diarrhea, melena, gross hematochezia, or any food intolerance, including fatty foods, etc.. The patient also denies any recent fever, cough, wheezing, dyspnea , etc.. No history of recent headaches, visual changes, diplopia, change in mental status, or other change in neurological status. He denies any pain or discomfort. He did have a speech therapy evaluation in [place] with no direct evidence of significant dysphagia no further swallow studies needed per their assessment. His prolactin level was increased on 06/19, however no direct evidence of seizure activity during that evaluation Onset of Symptoms: Reports: Sudden Symptom Onset Date: 06/19/17 Symptom Onset Time: 23:20 Duration of Symptoms: Reports: Other (Back to normal baseline) Location: Reports: Other (No pain) Context: Reports: Other (As above) Associated Symptoms: Reports: Weakness (Stable chronic right-sided mild hemiparesis and footdrop). Denies: Confusion, Chest Pain, Cough, Diaphoresis, Fever/Chills, Headaches, Loss of Appetite, Malaise, Nausea/Vomiting, Seizure, Shortness of Breath, Syncope - Related Data Allergies/Adverse Reactions: Allergies Allergy/AdvReac Type Severity Reaction Status Date / Time dicloxacillin AdvReac Nausea Verified 06/20/17 00:09 Home Medications: Home Meds buPROPion [buPROPion XL] 300 mg PO DAILY 06/23/14 [History] Pantoprazole [ProTONIX] 40 mg PO DAILY 07/22/14 [History] Clopidogrel Bisulfate [Clopidogrel] 75 mg PO DAILY 04/15/17 [History] Levothyroxine Sodium [Synthroid] 75 mcg PO ACBREAKFAST 04/15/17 [History] Metoprolol Succinate 25 mg PO DAILY 04/15/17 [History] Venlafaxine HCl [Venlafaxine ER] 225 mg PO DAILY 04/15/17 [History] atorvaSTATin [Lipitor] 40 mg PO BEDTIME 04/15/17 [History] traZODone 50 mg PO BEDTIME 04/15/17 [History] Tamsulosin [Flomax] 0.4 mg PO BEDTIME #0 04/17/17 [Rx] Lisinopril 20 mg PO BEDTIME 05/17/17 [History] Cyanocobalamin (Vitamin B-12) [Vitamin B-12] 1,000 mcg PO DAILY 06/04/17 [ History] Folic Acid 2 tab PO DAILY 06/04/17 [History] Magnesium Gluconate 500 mg PO DAILY 06/04/17 [History] Past Medical History HEENT History: Reports: Hard of Hearing, Impaired Vision, Other (See Below). Denies: Allergic Rhinitis, Cataract, Glaucoma, Macular Degeneration, Retinal Detachment Other HEENT History: Presbycusis with patient noncompliant with his left-sided hearing aid Cardiovascular History: Reports: Arrhythmia, Cardiomyopathy, High Cholesterol, Hypertension, Other (See Below). Denies: Afib, Aneurysm, Blood Clots/VTE/DVT, CAD, Heart Murmur, HI, PVD, Syncope Other Cardiovascular History: Grade 1 diastolic dysfunction by echocardiogram Respiratory History: Reports: COPD, Intubation, Previous, Pneumonia, Recurrent, Pulmonary Fibrosis. Denies: Asthma, Intubation, Difficult, PE, Pneumothorax, Sleep Apnea, TB Gastrointestinal History: Reports: Colon Polyp, Gastritis, GERD, GI Bleed, PUD, Other (See Below). Denies: Bowel Obstruction, Celiac Disease, Cholelithiasis, Chronic Constipation, Chronic Diarrhea, Hepatitis, Jaundice, Pancreatitis Other Gastrointestinal History: Moderate esophagitis by EGD in May 2017 with history of upper GI bleed at that time, colonic polyp of unknown character removed by colonoscopy in 2004 Genitourinary History: Reports: Acute Renal Failure, BPH, Chronic Renal Insuffiency, Renal Disease, Retention, Urinary, Other (See Below). Denies: Renal Calculus, STD, Urinary Incontinence, UTI, Recurrent Other Genitourinary History: nocturia, acute renal failure secondary to dehydration on 04/15/17, grade 3 renal insufficiency Musculoskeletal History: Reports: Arthritis, Back Pain, Chronic, Fracture, Osteoarthritis, Other (See Below). Denies: Amputation, Gout, Neck Pain, Chronic , RA, SLE Other Musculoskeletal History: Bursitis, elbow, chronic right foot pain, left hand fracture in about 2004 with surgery as below Neurological History: Reports: CVA, Seizure, Speech Problems, TIA, Other (See Below). Denies: Alzheimers Disease, Brain Injury, Cerebral Aneurysms, Concussion, Headaches, Chronic, Head Trauma, Migraines, MS, Neuropathy, Peripheral, Parkinson's Other Neuro History: Possible TIA on 06/19/17, Left basal ganglion and frontal CVA on 06/23/14 with secondary dysarthria, left facial paresis, and right hemiparesis with right foot drop, chronic dizziness with history of freq. falls with the patient requiring one assist and walker use, chronic fatigue Psychiatric History: Reports: Anxiety, Depression. Denies: Abuse, Victim of, ADD, ADHD, Addiction, Dementia, Psych Hospitalization(s), PTSD, Suicide Attempt , Suicidal Ideation Endocrine/Metabolic History: Reports: Hypothyroidism, Other (See Below). Denies : Diabetes, Type I, Diabetes, Type II, IDDM Other Endocrine/Metabolic History: hyperglycemia, hypomagnesemia, vitamin B12 deficiency Hematologic History: Reports: Anemia, B12 Deficiency, Folic Acid, Other (See Below). Denies: Iron Deficiency Other Hematologic History: bruises easily Immunologic History: Reports: Other (See Below). Denies: AIDS, HIV, SLE Other Immunologic History: Hypoalbuminemia Oncologic (Cancer) History: Reports: None. Denies: Basal Cell Carcinoma, Colon , Hodgkin's Lymphoma, Leukemia, Lymphoma, Malignant Melanoma, Non-Hodgkin's Lymphoma, Prostate, Squamous Cell Carcinoma Dermatologic History: Reports: None. Denies: Eczema, Psoriasis - Infectious Disease History Infectious Disease History: Reports: Chicken Pox, Measles, Mumps. Denies: C- Difficile, Meningitis, Mononucleosis, MRSA, Pertussis (Whooping Cough), Rubella , Scarlet Fever, Shingles, TB, VRE - Past Surgical History Head Surgeries/Procedures: Reports: None HEENT Surgical History: Reports: LASIK, Oral Surgery, Other (See Below). Denies : Adenoidectomy, Cataract Surgery, Eye Surgery, Laser Surgery, Naso-Sinus Surgery, Tonsillectomy Other HEENT Surgeries/Procedures: Multiple teeth extractions, LASIK in 2006 Cardiovascular Surgical History: Reports: None. Denies: Varicose, Vascular Surgery Respiratory Surgical History: Reports: None. Denies: Lung Biopsies, Thoracentesis GI Surgical History: Reports: Colon, Colonoscopy, EGD, Polypectomy, Other (See Below). Denies: Appendectomy, Cholecystectomy, Hernia, Abdominal, Hernia, Inguinal, Hernia Repair/Other Other GI Surgeries/Procedures: Initial colonoscopy in 2004 with removal of probable benign colonic polyp at that time. EGD on 05/21/17 with moderate esophagitis noted, colonoscopy on 05/22/17 to the transverse colon with indication of possible distant previous right hemicolectomy for unknown reason although the patient and his are not aware of the surgery? Male Surgical History: Reports: None. Denies: TURP-Transurethral Resection of Prostate Endocrine Surgical History: Reports: None Neurological Surgical History: Reports: None. Denies: C-Spine, Discectomy, Laminectomy, Lumbar Spine, Spinal Fusion, Vertebroplasty Musculoskeletal Surgical History: Reports: ORIF, Other (See Below). Denies: Arthroscopic Procedure, Carpal Tunnel, Ganglion Cyst, Joint Replacement, Shoulder Surgery Other Musculoskeletal Surgeries/Procedures:: Unknown hand surgery/ORIF of previous fracture in [id number] Oncologic Surgical History: Reports: None Dermatological Surgical History: Reports: None - Past Imaging History Past Imaging History: Reports: Cardiac Echo (06/20/17 with mild grade 1 diastolic dysfunction and otherwise normal ejection fraction of 5055 percent), CAT Scan ( Multiple CTs of the brain with last evaluation initially without contrast in this facility on 06/19/17 and then repeated at [facility] on with subsequent CT of the head and neck with contrast on 06/20/[address]. [address] scan of the head on 06/09/17 with previous evaluations on 06/04/17, , 07/22/14 and 06/23/14), MRA (MRI/MRA of the brain and cervical spine on ), MRI (Brain on 02/23/16), Ultrasound (Abdominal ultrasound on 10/02/12). Denies: Stress Testing Social & Family History - Family History HEENT: Reports: None. Denies: Allergic Rhinitis, Glaucoma, Macular Degeneration , Retinal Detachment Cardiac: Reports: Bypass, CAD, Hypertension, HI, Stent, Other (See Below). Denies: Afib, Aneurysm, Arrhythmia, Blood Clots/VTE/DVT, Heart Failure, Heart Murmur, PVD/COD, Syncope Other Cardiac Family History: Father with coronary artery disease with known history of HI however CABG in his 90s, mother with coronary artery disease and acute HI with PTCA/stent placement, hypertension in parents and brother GI: Reports: Irritable Bowel Syndrome, PUD, Other (See Below). Denies: Celiac Disease, Cholelithiasis, Colon Polyps, GERD, GI bleed, Inflammatory Bowel Disease Other GI Family History: Father with peptic ulcer disease, sister with irritable bowel syndrome : Reports: Other (See Below) Other Family History: Father with BPH Musculoskeletal: Reports: None. Denies: Gout, RA, SLE Neurological: Reports: None. Denies: Alzheimers Disease, Cerebral Aneurysms, CVA, Dementia, Migraines, MS, Parkinson's, Seizure, TIA Psychiatric: Reports: Anxiety, Depression, Other (See Below) Other Psychiatric Family History: Mother with anxiety depression disorder Endocrine/Metabolic: Reports: Diabetes, type II, Other (See Below) Other Endocrine/Metabolic Family History: Father with diabetes mellitus Hematologic: Reports: None. Denies: Anemia, SLE Immunologic: Reports: None. Denies: AIDS, HIV, SLE Dermatologic: Reports: None. Denies: Eczema, Psoriasis Oncologic: Reports: Lung, Skin, Other (See Below) Other Oncologic Family History: Mother with unknown type of skin cancer, sister with fatal metastatic lung cancer in her 40s with no history of tobacco use - Tobacco Use Smoking Status *Q: Current Every Day Smoker Tobacco Use Within Last Twelve Months: Snuff/Dip Years of Tobacco use: 41 Packs/Tins Daily: 0.2 (One half can per week since age 16) Smoking Cessation Information Provided To Patient: Yes Second Hand Smoke Exposure: No Second Hand Smoke Education Provided: No - Caffeine Use Caffeine Use: Reports: Coffee (1 cup 2 times per week). Denies: Energy Drinks, Soda, Tea - Alcohol Use Alcohol Use History: Yes Days Per Week of Alcohol Use: 4 (No previous DWIs, problems with alcohol abuse, etc.) Number of Drinks Per Day: 1 Total Drinks Per Week: 4 - Recreational Drug Use Recreational Drug Use: No Drug Use in Last 12 Months: No Recreational Drug Type: Denies: Amphetamines (Speed), Heroin, LSD (Acid), Marijuana/Hashish, Methamphetamine - Living Situation & Occupation Living situation: Reports: ( in 1978, 2 children), Extended Care Facility (Swing bed unit at [facility]) Occupation: Retired ([employer] and retired since CVA in 2013) H&P Review of Systems - Review of Systems: Review Of Systems: ROS reveals no pertinent complaints other than HPI. Exam - Exam Exam: See Below - Vital Signs Vital Signs: Vital Signs - 24 hr 06/21/17 16:37 Temperature [ 36.3 C Temporal] Pulse, 75 Peripheral [ Left Pulse Oximetry] Respiratory 16 Rate Blood Pressure 121/74 [Left Upper Arm ] O2 Sat by Pulse 96 Oximetry Weight: 88.451 kg - Exam Quality Assessment: Skin Breakdown (Mild old abrasions in the anterior tibial regions bilaterally). No: Supplemental Oxygen, Central Line/PICC, Urinary Catheter, DVT Prophylaxis (Patient ambulates with assist), Restraints General: Alert, Oriented, Cooperative, Other (No acute distress) HEENT: Conjunctiva Clear, EACs Clear, EOMI, Mucosa Moist & [place], Nares Patent, Normal Nasal Septum, Posterior Pharynx Clear, Pupils Equal, Pupils Reactive, TMs Clear, Other (Multiple caries with broken teeth into the gumline with patient currently using chewing tobacco, no acute abscesses or drainage), PERRLA. No: Hearing Intact (Mild bilateral presbycusis with the patient not wearing his left hearing aid), Rhinitis, Contact Lenses, Glasses Neck: Supple, Trachea Midline, +2 Carotid Pulse wo Bruit, Full Range of Motion. No: Lymphadenopathy, JVD, Thyromegaly Lungs: Clear to Auscultation, Normal Respiratory Effort. No: Rub Cardiovascular: Regular Rate, Regular Rhythm. No: Systolic Murmur, Diastolic Murmur, Rubs, Gallop/S3, Gallop/S4 GI/Abdominal Exam: Normal Bowel Sounds, Soft, Non-Tender, No Organomegaly, No Distention, No Abnormal Bruit, No Mass, Pelvis Stable. No: Guarding (Male) Exam: Deferred Rectal (Males) Exam: Deferred Back Exam: Normal Inspection, Full Range of Motion. No: CVA Tenderness (L), CVA Tenderness (R), Muscle Spasm Extremities: Normal Range of Motion, Non-Tender, No Pedal Edema, Normal Capillary Refill, Other (Mild superficial anterior tibial abrasions bilaterally as above). No: Wojciech's Sign Peripheral Pulses: 2+: Radial (L), Radial (R), Dorsalis Pedis (L), Dorsalis Pedis (R) Skin: Warm, Dry, Wound (As above). No: Rash, Petechia, Ecchymosis Neurological: Babinski (Stable chronic positive right-sided Babinski's), Abnormal Gait (Patient requires walker use, back to baseline), Other (Stable back to normal baseline mild right-sided hemiparesis, right foot drop, and left facial paresis). No: Normal Speech (Stable dysarthria back to normal baseline) Neuro Extensive - Mental Status: Alert, Oriented x3, Normal Mood/Affect, Normal Cognition Psychiatric: Alert, Normal Affect, Normal Mood. No: Anxious, Depressed, Agitated, Suicidal Ideation, Homicidal Ideation, Hallucinations, Withdrawal Symptoms - Patient Data Lab Results Last 24 hrs: To be conducted in a.m. Imaging Impressions Last 24 hrs: CT of the chest with and without contrast to be conducted in the a.m. *Q Meaningful Use (ADM) - VTE *Q VTE Criteria *Q: - Stroke *Q Stroke Criteria *Q: - AMI *Q AMI Criteria *Q: - Problem List (1) CVA (cerebral vascular accident) SNOMED Code(s): 011285467 ICD Code: I63.9 - CEREBRAL INFARCTION, UNSPECIFIED Status: Acute Priority : High Current Visit: No Onset Date: 06/20/17 Problem Details: Recent probable TIA as above with history of distant CVA. Reinitiate PT/OT with strict fall precautions, etc.. Note history of hypertension with [place] physicians suspecting possible near syncopal episode secondary to his medical therapy. Per their recommendations his Flomax will be discontinued with additional decrease of his trazodone therapy. Further medication adjustments depending on his clinical course. Long-term plan is to discharge the patient back to home with home health versus jail care facility Qualifiers: CVA mechanism: unspecified Qualified Code(s): I63.9 - Cerebral infarction, unspecified (2) Caries involving multiple surfaces of tooth SNOMED Code(s): 357926468 ICD Code: K02.9 - DENTAL CARIES, UNSPECIFIED Status: Acute Priority: Medium Current Visit: Yes Onset Date: ~06/21/17 Problem Details: Dental consultation ILYA (3) Anemia SNOMED Code(s): 294240373 ICD Code: D64.9 - ANEMIA, UNSPECIFIED Status: Acute Priority: High Current Visit: No Onset Date: 05/18/17 Problem Details: Note history of previous GI bleed currently nonsymptomatic. Also additional previous history of vitamin B 12 anemia with booster IM injection given during recent hospitalization [place]. Resume oral vitamin B-12 therapy with additional folic acid therapy with repeat levels to be conducted in one month Qualifiers: Anemia type: B12 deficiency Vitamin B12 deficiency anemia type: other B12 deficiency Qualified Code(s): D51.8 - Other vitamin B12 deficiency anemias (4) COPD (chronic obstructive pulmonary disease) SNOMED Code(s): 65066567 ICD Code: J44.9 - CHRONIC OBSTRUCTIVE PULMONARY DISEASE, UNSPECIFIED Status : Acute Priority: Medium Current Visit: Yes Problem Details: Evidence of COPD by chest x-ray. Patient may benefit from PFTs with no recent history of recent fever, bronchitic type symptoms, aspiration, etc. Qualifiers: COPD type: COPD with acute lower respiratory infection Qualified Code(s): J44.0 - Chronic obstructive pulmonary disease with acute lower respiratory infection (5) Frequent falls SNOMED Code(s): 814177208 ICD Code: R29.6 - REPEATED FALLS Status: Chronic Priority: Medium Current Visit: Yes Problem Details: Strict fall precautions with walker use. PT and OT as above (6) Hyperlipidemia SNOMED Code(s): 59394403 ICD Code: E78.5 - HYPERLIPIDEMIA, UNSPECIFIED Status: Acute Priority: Medium Current Visit: No Problem Details: Currently under therapy Qualifiers: Hyperlipidemia type: unspecified Qualified Code(s): E78.5 - Hyperlipidemia , unspecified (7) Hypoalbuminemia SNOMED Code(s): 745589927 ICD Code: E88.09 - OTH DISORDERS OF PLASMA-PROTEIN METABOLISM, NEC Status: Acute Priority: Medium Current Visit: No Onset Date: 05/18/17 Problem Details: Newly diagnosed. Add high-protein Glucerna supplements as snacks with close follow-up by his regular provider (8) Hypertension SNOMED Code(s): 45280196 ICD Code: I10 - ESSENTIAL (PRIMARY) HYPERTENSION Status: Chronic Priority : Medium Current Visit: No Problem Details: Blood pressures stable on admission, however note possible recent hypotension as above Qualifiers: Hypertension type: essential hypertension Qualified Code(s): I10 - Essential (primary) hypertension (9) Hypothyroidism SNOMED Code(s): 89803855 ICD Code: E03.9 - HYPOTHYROIDISM, UNSPECIFIED Status: Chronic Priority: Medium Current Visit: No Problem Details: TSH mildly elevated recently. L thyroxine to be increased on admission with repeat TSH in 4 weeks Qualifiers: Hypothyroidism type: acquired Qualified Code(s): E03.9 - Hypothyroidism, unspecified (10) Mixed anxiety depressive disorder SNOMED Code(s): 563113366 ICD Code: F41.8 - OTHER SPECIFIED ANXIETY DISORDERS Status: Chronic Priority: Medium Current Visit: No Problem Details: Stable by history. (11) Peptic reflux disease SNOMED Code(s): 55531376 ICD Code: K21.9 - GASTRO-ESOPHAGEAL REFLUX DISEASE WITHOUT ESOPHAGITIS Status: Chronic Priority: Medium Current Visit: No Problem Details: Stable by history with current Protonix therapy. No recent abdominal pain or evidence of GI bleeding (12) Renal insufficiency SNOMED Code(s): 488919001, 022727403 ICD Code: N28.9 - DISORDER OF KIDNEY AND URETER, UNSPECIFIED Status: Chronic Priority: Medium Current Visit: No Problem Details: Stable. Blood work to be repeated in the a.m. (13) Snuff user SNOMED Code(s): 202427272, 280954365 ICD Code: Z78.9 - OTHER SPECIFIED HEALTH STATUS Status: Chronic Priority : Medium Current Visit: No Problem Details: Tobacco cessation counseling given to the patient and his on admission today, including the use of Nicorette gum. No further chewing tobacco use during his swing bed care with Nicorette gum to be obtained [facility] Problem List Initiated/Reviewed/Updated: Yes Orders Last 24hrs: Active Orders 24 hr Category Date Time Status Admission Status [Patient Status] [ADT] Routine ADT 06/21/17 15:55 Active Communication Order [RC] ROUTINE Care 06/21/17 15:53 Active Communication Order [RC] ROUTINE Care 06/21/17 16:02 Active Communication Order [RC] ROUTINE Care 06/21/17 16:04 Active Pulse Oximetry [RC] ASDIRECTED Care 06/21/17 15:56 Active Up With Assistance [RC] ASDIRECTED Care 06/21/17 15:57 Active Vaccines to be Administered [RC] PER UNIT ROUTINE Care 06/21/17 15:59 Active Vital Signs [RC] QSHIFT Care 06/21/17 15:58 Active OT Evaluation and Treatment [CONS] Routine Cons 06/22/17 05:11 Active PT Evaluation and Treatment [CONS] Routine Cons 06/22/17 05:11 Active Heart Healthy Diet [DIET] Diet 06/21/17 Dinner Active CBC WITH AUTO DIFF [HEME] Routine Lab 06/22/17 05:11 Ordered COMPREHENSIVE METABOLIC PN,CMP [CHEM] Routine Lab 06/22/17 05:11 Ordered FOLIC ACID [CHEM] Routine Lab 07/25/17 05:11 Ordered MAGNESIUM [CHEM] Routine Lab 06/22/17 05:11 Ordered TSH ULTRASENSITIVE [CHEM] Routine Lab 07/25/17 05:11 Ordered URIC ACID [CHEM] Routine Lab 06/22/17 05:11 Ordered VITAMIN B12 [CHEM] Routine Lab 07/25/17 05:11 Ordered Acetaminophen [Tylenol] Med 06/21/17 16:00 Active 650 mg PO Q4H PRN Clopidogrel [Plavix] Med 06/22/17 08:00 Active 75 mg PO DAILY Cyanocobalamin (Vitamin B12) [Vitamin B12] Med 06/22/17 08:00 Active 1,000 mcg PO DAILY Folic Acid Med 06/22/17 08:00 Active 2 mg PO DAILY Levothyroxine Med 06/22/17 07:30 Ordered 100 mcg PO ACBREAKFAST Lisinopril [Prinivil] Med 06/21/17 20:00 Active 20 mg PO BEDTIME Magnesium Oxide Med 06/22/17 08:00 Active 400 mg PO DAILY Metoprolol Succinate [Toprol XL] Med 06/22/17 08:00 Active 25 mg PO DAILY Pantoprazole [ProTONIX] Med 06/22/17 08:00 Active 40 mg PO DAILY Venlafaxine [Effexor XR] Med 06/22/17 08:00 Active 225 mg PO DAILY atorvaSTATin [Lipitor] Med 06/21/17 20:00 Active 40 mg PO BEDTIME buPROPion [Wellbutrin XL] Med 06/22/17 08:00 Active 300 mg PO DAILY traZODone Med 06/21/17 20:00 Active 25 mg PO BEDTIME GM Immunization Reflex [OM.PC] Click To Edit Oth 06/21/17 15:53 Ordered Obtain Past Medical Record [OM.PC] Routine Oth 06/21/17 15:55 Active Resuscitation Status Routine Resus Stat 06/21/17 15:51 Ordered Medication Orders Acetaminophen (Tylenol) 650 mg PO Q4H PRN PRN Reason: Pain/Fever Atorvastatin Calcium (Lipitor) 40 mg PO BEDTIME AMALIA Bupropion HCl (Wellbutrin Xl) 300 mg PO DAILY AMALIA Clopidogrel Bisulfate (Plavix) 75 mg PO DAILY AMALIA Cyanocobalamin (Vitamin B12) 1,000 mcg PO DAILY AMALIA Folic Acid (Folic Acid) 2 mg PO DAILY AMALIA Levothyroxine Sodium (Levothyroxine) 100 mcg PO ACBREAKFAST AMALIA Lisinopril (Prinivil) 20 mg PO BEDTIME AMALIA Magnesium Oxide (Magnesium Oxide) 400 mg PO DAILY AMAILA Metoprolol Succinate (Toprol Xl) 25 mg PO DAILY AMALIA Pantoprazole Sodium (Protonix) 40 mg PO DAILY AMALIA Trazodone HCl (Trazodone) 25 mg PO BEDTIME AMALIA Venlafaxine HCl (Effexor Xr) 225 mg PO DAILY AMALIA Assessment/Plan Comment:: As above. Extensive precautions were given to the patient and his , who are in agreement with the treatment plan. Vivek Humphries M.D., at the [facility], and SANDI Olivier at [facility], assume patient's care in the a.m. Note recent chest x-ray report from ER evaluation on 06/19/19 indicates chronic nonspecific right lower lobe consolidation with CT scan with contrast recommended. This has been ordered for the morning.
[2017-06-21] MEDS: atorvaSTATin 40 MG Tab PO SCH (19:46)
[2017-06-21] MEDS: traZODone 50 MG Tab PO SCH (19:46)
[2017-06-21] MEDS: Lisinopril 20 MG Tab PO SCH (19:47)
[2017-06-22] MEDS ORDERED: Levothyroxine 75 MCG Tab PO SCH (07:30)
[2017-06-22 07:54] LABS: CHLORIDE,CL 105 mmol/L (98-107); SODIUM,NA 140 mmol/L (136-145)
[2017-06-22] MEDS: Levothyroxine 100 MCG Tab PO SCH (07:57)
[2017-06-22] MEDS: Folic Acid 1 MG Tab PO SCH (07:58)
[2017-06-22] MEDS: Magnesium Oxide 400 MG Tab PO SCH (07:59)
[2017-06-22] MEDS: Clopidogrel 75 MG Tab PO SCH (08:00)
[2017-06-22] MEDS: Pantoprazole 40 MG Tab.CR PO SCH (08:00)
[2017-06-22] MEDS: Metoprolol Succinate 25 MG Tab.ER PO SCH (08:05)
[2017-06-22] MEDS: Cyanocobalamin (Vitamin B12) 1,000 MCG Tab PO SCH (08:06)
[2017-06-22] MEDS: buPROPion 150 MG Tab.ER PO SCH (08:07)
[2017-06-22] MEDS: Venlafaxine 75 MG Cap.ER PO SCH (08:14)
[2017-06-22] MEDS ORDERED: Iopamidol 612 MG/ML 100 ML Bottle IVPUSH ONE (09:31)
[2017-06-22] MEDS: atorvaSTATin 40 MG Tab PO SCH (20:47)
[2017-06-22] MEDS: traZODone 50 MG Tab PO SCH (20:47)
[2017-06-22] MEDS: Lisinopril 20 MG Tab PO SCH (20:47)
[2017-06-23] MEDS: Levothyroxine 100 MCG Tab PO SCH (07:44)
[2017-06-23] MEDS: Venlafaxine 75 MG Cap.ER PO SCH (07:45)
[2017-06-23] MEDS: Magnesium Oxide 400 MG Tab PO SCH (07:46)
[2017-06-23] MEDS: Folic Acid 1 MG Tab PO SCH (07:46)
[2017-06-23] MEDS: Pantoprazole 40 MG Tab.CR PO SCH (07:47)
[2017-06-23] MEDS: Clopidogrel 75 MG Tab PO SCH (07:47)
[2017-06-23] MEDS: Cyanocobalamin (Vitamin B12) 1,000 MCG Tab PO SCH (07:49)
[2017-06-23] MEDS: buPROPion 150 MG Tab.ER PO SCH (07:49)
[2017-06-23] MEDS: Metoprolol Succinate 25 MG Tab.ER PO SCH (08:16)
[2017-06-23] MEDS: NICOTINE 2MG GUM PO PRN (12:55)
[2017-06-23] MEDS: traZODone 50 MG Tab PO SCH (19:37)
[2017-06-23] MEDS: Lisinopril 20 MG Tab PO SCH (19:38)
[2017-06-23] MEDS: atorvaSTATin 40 MG Tab PO SCH (19:39)
[2017-06-24] MEDS: Venlafaxine 75 MG Cap.ER PO SCH (07:45)
[2017-06-24] MEDS: Levothyroxine 100 MCG Tab PO SCH (07:45)
[2017-06-24] MEDS: Magnesium Oxide 400 MG Tab PO SCH (07:47)
[2017-06-24] MEDS: Folic Acid 1 MG Tab PO SCH (07:47)
[2017-06-24] MEDS: Clopidogrel 75 MG Tab PO SCH (07:47)
[2017-06-24] MEDS: Pantoprazole 40 MG Tab.CR PO SCH (07:49)
[2017-06-24] MEDS: Metoprolol Succinate 25 MG Tab.ER PO SCH (07:49)
[2017-06-24] MEDS: Cyanocobalamin (Vitamin B12) 1,000 MCG Tab PO SCH (07:50)
[2017-06-24] MEDS: buPROPion 150 MG Tab.ER PO SCH (07:50)
[2017-06-24] MEDS: atorvaSTATin 40 MG Tab PO SCH (19:07)
[2017-06-24] MEDS: Lisinopril 20 MG Tab PO SCH (19:07)
[2017-06-24] MEDS: traZODone 50 MG Tab PO SCH (19:08)
[2017-06-25] MEDS: Venlafaxine 75 MG Cap.ER PO SCH (07:46)
[2017-06-25] MEDS: Levothyroxine 100 MCG Tab PO SCH (07:46)
[2017-06-25] MEDS: Magnesium Oxide 400 MG Tab PO SCH (07:47)
[2017-06-25] MEDS: Clopidogrel 75 MG Tab PO SCH (07:47)
[2017-06-25] MEDS: Folic Acid 1 MG Tab PO SCH (07:47)
[2017-06-25] MEDS: Metoprolol Succinate 25 MG Tab.ER PO SCH (07:48)
[2017-06-25] MEDS: Pantoprazole 40 MG Tab.CR PO SCH (07:48)
[2017-06-25] MEDS: buPROPion 150 MG Tab.ER PO SCH (07:49)
[2017-06-25] MEDS: Cyanocobalamin (Vitamin B12) 1,000 MCG Tab PO SCH (07:49)
[2017-06-25] MEDS: atorvaSTATin 40 MG Tab PO SCH (20:08)
[2017-06-25] MEDS: Lisinopril 20 MG Tab PO SCH (20:09)
[2017-06-25] MEDS: traZODone 50 MG Tab PO SCH (20:09)
[2017-06-26] MEDS: Levothyroxine 100 MCG Tab PO SCH (08:01)
[2017-06-26] MEDS: Venlafaxine 75 MG Cap.ER PO SCH (08:02)
[2017-06-26] MEDS: Folic Acid 1 MG Tab PO SCH (08:02)
[2017-06-26] MEDS: Magnesium Oxide 400 MG Tab PO SCH (08:03)
[2017-06-26] MEDS: Clopidogrel 75 MG Tab PO SCH (08:03)
[2017-06-26] MEDS: Pantoprazole 40 MG Tab.CR PO SCH (08:04)
[2017-06-26] MEDS: Metoprolol Succinate 25 MG Tab.ER PO SCH (08:04)
[2017-06-26] MEDS: buPROPion 150 MG Tab.ER PO SCH (08:05)
[2017-06-26] MEDS: Cyanocobalamin (Vitamin B12) 1,000 MCG Tab PO SCH (08:05)
[2017-06-26] MEDS: NICOTINE 2MG GUM PO PRN (11:48)
[2017-06-26] MEDS: Lisinopril 20 MG Tab PO SCH (19:54)
[2017-06-26] MEDS: atorvaSTATin 40 MG Tab PO SCH (19:55)
[2017-06-26] MEDS: traZODone 50 MG Tab PO SCH (19:56)
[2017-06-27] MEDS: Levothyroxine 100 MCG Tab PO SCH (07:21)
[2017-06-27] MEDS: Venlafaxine 75 MG Cap.ER PO SCH (08:13)
[2017-06-27] MEDS: Folic Acid 1 MG Tab PO SCH (08:14)
[2017-06-27] MEDS: Clopidogrel 75 MG Tab PO SCH (08:15)
[2017-06-27] MEDS: Magnesium Oxide 400 MG Tab PO SCH (08:15)
[2017-06-27] MEDS: Pantoprazole 40 MG Tab.CR PO SCH (08:15)
[2017-06-27] MEDS: Metoprolol Succinate 25 MG Tab.ER PO SCH (08:16)
[2017-06-27] MEDS: Cyanocobalamin (Vitamin B12) 1,000 MCG Tab PO SCH (08:17)
[2017-06-27] MEDS: buPROPion 150 MG Tab.ER PO SCH (08:17)
[2017-06-27] MEDS: NICOTINE 2MG GUM PO PRN ×2 (08:18→15:21)
[2017-06-27] MEDS: Lisinopril 20 MG Tab PO SCH (20:02)
[2017-06-27] MEDS: atorvaSTATin 40 MG Tab PO SCH (20:02)
[2017-06-27] MEDS: traZODone 50 MG Tab PO SCH (20:11)
[2017-06-28] MEDS: Venlafaxine 75 MG Cap.ER PO SCH (07:46)
[2017-06-28] MEDS: Levothyroxine 100 MCG Tab PO SCH (07:46)
[2017-06-28] MEDS: Folic Acid 1 MG Tab PO SCH (07:47)
[2017-06-28] MEDS: Magnesium Oxide 400 MG Tab PO SCH (07:48)
[2017-06-28] MEDS: Clopidogrel 75 MG Tab PO SCH (07:48)
[2017-06-28] MEDS: buPROPion 150 MG Tab.ER PO SCH (07:49)
[2017-06-28] MEDS: Cyanocobalamin (Vitamin B12) 1,000 MCG Tab PO SCH (07:49)
[2017-06-28] MEDS: Pantoprazole 40 MG Tab.CR PO SCH (07:49)
[2017-06-28] MEDS: Metoprolol Succinate 25 MG Tab.ER PO SCH (08:13)
[2017-06-28] MEDS: NICOTINE 2MG GUM PO PRN ×3 (09:08→15:21)
[2017-06-28] MEDS: atorvaSTATin 40 MG Tab PO SCH (19:57)
[2017-06-28] MEDS: Lisinopril 20 MG Tab PO SCH (19:58)
[2017-06-28] MEDS: traZODone 50 MG Tab PO SCH (19:58)
[2017-06-29] MEDS: Levothyroxine 100 MCG Tab PO SCH (07:54)
[2017-06-29] MEDS: Venlafaxine 75 MG Cap.ER PO SCH (07:55)
[2017-06-29] MEDS: Folic Acid 1 MG Tab PO SCH (07:56)
[2017-06-29] MEDS: Magnesium Oxide 400 MG Tab PO SCH (07:56)
[2017-06-29] MEDS: Clopidogrel 75 MG Tab PO SCH (07:56)
[2017-06-29] MEDS: Metoprolol Succinate 25 MG Tab.ER PO SCH (07:57)
[2017-06-29] MEDS: Pantoprazole 40 MG Tab.CR PO SCH (07:57)
[2017-06-29] MEDS: Cyanocobalamin (Vitamin B12) 1,000 MCG Tab PO SCH (07:58)
[2017-06-29] MEDS: buPROPion 150 MG Tab.ER PO SCH (07:58)
[2017-06-29] MEDS: NICOTINE 2MG GUM PO PRN ×3 (08:51→20:04)
[2017-06-29] MEDS: atorvaSTATin 40 MG Tab PO SCH (19:59)
[2017-06-29] MEDS: Lisinopril 20 MG Tab PO SCH (20:00)
[2017-06-29] MEDS: traZODone 50 MG Tab PO SCH (20:01)
[2017-06-30] MEDS: Levothyroxine 100 MCG Tab PO SCH (07:51)
[2017-06-30] MEDS: Venlafaxine 75 MG Cap.ER PO SCH (07:51)
[2017-06-30] MEDS: Folic Acid 1 MG Tab PO SCH (07:52)
[2017-06-30] MEDS: Magnesium Oxide 400 MG Tab PO SCH (07:52)
[2017-06-30] MEDS: Pantoprazole 40 MG Tab.CR PO SCH (07:53)
[2017-06-30] MEDS: Clopidogrel 75 MG Tab PO SCH (07:53)
[2017-06-30] MEDS: buPROPion 150 MG Tab.ER PO SCH (07:54)
[2017-06-30] MEDS: Metoprolol Succinate 25 MG Tab.ER PO SCH (07:54)
[2017-06-30] MEDS: Cyanocobalamin (Vitamin B12) 1,000 MCG Tab PO SCH (07:54)
[2017-06-30] MEDS: NICOTINE 2MG GUM PO PRN ×3 (08:46→19:52)
[2017-06-30] MEDS: Lisinopril 20 MG Tab PO SCH (19:30)
[2017-06-30] MEDS: atorvaSTATin 40 MG Tab PO SCH (19:30)
[2017-06-30] MEDS: traZODone 50 MG Tab PO SCH (19:31)
[2017-07-01] MEDS: Levothyroxine 100 MCG Tab PO SCH (08:17)
[2017-07-01] MEDS: Venlafaxine 75 MG Cap.ER PO SCH (08:18)
[2017-07-01] MEDS: Folic Acid 1 MG Tab PO SCH (08:19)
[2017-07-01] MEDS: Pantoprazole 40 MG Tab.CR PO SCH (08:20)
[2017-07-01] MEDS: Magnesium Oxide 400 MG Tab PO SCH (08:20)
[2017-07-01] MEDS: Clopidogrel 75 MG Tab PO SCH (08:20)
[2017-07-01] MEDS: Metoprolol Succinate 25 MG Tab.ER PO SCH (08:21)
[2017-07-01] MEDS: buPROPion 150 MG Tab.ER PO SCH (08:24)
[2017-07-01] MEDS: Cyanocobalamin (Vitamin B12) 1,000 MCG Tab PO SCH (08:24)
[2017-07-01] MEDS: NICOTINE 2MG GUM PO PRN (11:15)
[2017-07-01] MEDS: Lisinopril 20 MG Tab PO SCH (19:43)
[2017-07-01] MEDS: atorvaSTATin 40 MG Tab PO SCH (19:43)
[2017-07-01] MEDS: traZODone 50 MG Tab PO SCH (19:43)
[2017-07-02] MEDS: Levothyroxine 100 MCG Tab PO SCH (07:32)
[2017-07-02] MEDS: Venlafaxine 75 MG Cap.ER PO SCH (07:33)
[2017-07-02] MEDS: Clopidogrel 75 MG Tab PO SCH (07:34)
[2017-07-02] MEDS: Magnesium Oxide 400 MG Tab PO SCH (07:34)
[2017-07-02] MEDS: Folic Acid 1 MG Tab PO SCH (07:34)
[2017-07-02] MEDS: Pantoprazole 40 MG Tab.CR PO SCH (07:35)
[2017-07-02] MEDS: Metoprolol Succinate 25 MG Tab.ER PO SCH (07:35)
[2017-07-02] MEDS: Cyanocobalamin (Vitamin B12) 1,000 MCG Tab PO SCH (07:36)
[2017-07-02] MEDS: buPROPion 150 MG Tab.ER PO SCH (07:36)
[2017-07-02] MEDS: NICOTINE 2MG GUM PO PRN (09:55)
--- NOTE | 2017-07-02 16:34 | PCM.PN ---
- General Info Date of Service: 07/02/17 Admission Dx/Problem (Free Text): Patient admitted with chief complaint of severe back pain doing better when at rest no pain when ambulating a goes up to about 7 Functional Status: Reports: Pain Controlled - Review of Systems General: Reports: No Symptoms HEENT: Reports: No Symptoms Pulmonary: Reports: No Symptoms Cardiovascular: Reports: No Symptoms Gastrointestinal: Reports: No Symptoms Genitourinary: Reports: No Symptoms Musculoskeletal: Reports: Back Pain, Leg Pain Skin: Reports: No Symptoms Neurological: Reports: No Symptoms Psychiatric: Reports: No Symptoms - Patient Data Vitals - Most Recent: Last Vital Signs Temp 97.2 F 07/02/17 08:00 Pulse 75 07/02/17 08:00 Resp 16 07/02/17 08:00 BP 123/73 07/02/17 08:00 Pulse Ox 99 07/02/17 08:00 Weight - Most Recent: 186 lb 1.6 oz Med Orders - Current: Current Medications Acetaminophen (Tylenol) 650 mg PO Q4H PRN PRN Reason: Pain/Fever Atorvastatin Calcium (Lipitor) 40 mg PO BEDTIME [facility] Last Admin: 07/01/17 19:43 Dose: 40 mg Bupropion HCl (Wellbutrin Xl) 300 mg PO DAILY [facility] Last Admin: 07/02/17 07:36 Dose: 300 mg Clopidogrel Bisulfate (Plavix) 75 mg PO DAILY [facility] Last Admin: 07/02/17 07:34 Dose: 75 mg Cyanocobalamin (Vitamin B12) 1,000 mcg PO DAILY [facility] Last Admin: 07/02/17 07:36 Dose: 1,000 mcg Folic Acid (Folic Acid) 2 mg PO DAILY [facility] Last Admin: 07/02/17 07:34 Dose: 2 mg Levothyroxine Sodium (Synthroid) 100 mcg PO ACBREAKFAST [facility] Last Admin: 07/02/17 07:32 Dose: 100 mcg Lisinopril (Prinivil) 20 mg PO BEDTIME [facility] Last Admin: 07/01/17 19:43 Dose: 20 mg Magnesium Oxide (Magnesium Oxide) 400 mg PO DAILY [facility] Last Admin: 07/02/17 07:34 Dose: 400 mg Metoprolol Succinate (Toprol Xl) 25 mg PO DAILY [facility] Last Admin: 07/02/17 07:35 Dose: 25 mg Nicotine 2mg Gum 1 each PO ASDIRECTED PRN PRN Reason: TOBACCO CESSATION Last Admin: 07/02/17 09:55 Dose: 1 each Pantoprazole Sodium (Protonix) 40 mg PO DAILY [facility] Last Admin: 07/02/17 07:35 Dose: 40 mg Trazodone HCl (Trazodone) 25 mg PO BEDTIME [facility] Last Admin: 07/01/17 19:43 Dose: 25 mg Venlafaxine HCl (Effexor Xr) 225 mg PO DAILY [facility] Last Admin: 07/02/17 07:33 Dose: 225 mg Discontinued Medications Iopamidol (Isovue-300 (61%)) 100 ml IVPUSH ONETIME ONE Stop: 06/22/17 09:32 Last Admin: 06/22/17 12:28 Dose: 100 ml Levothyroxine Sodium (Levothyroxine) 75 mcg PO ACBREAKFAST [facility] - Exam General: Alert, Oriented HEENT: Pupils Equal, Pupils Reactive, EOMI, Mucous Membr. Moist/[place] Neck: Supple Lungs: Clear to Auscultation, Normal Respiratory Effort Cardiovascular: Regular Rate, Regular Rhythm GI/Abdominal Exam: Normal Bowel Sounds, Soft, Non-Tender, No Organomegaly, No Distention, No Abnormal Bruit, No Mass, Pelvis Stable (Male) Exam: No Hernia, Normal Inspection, Normal Prostate, Circumcised Back Exam: Normal Inspection, Full Range of Motion, Other (Severe lower back pain on ambulation and movement) Extremities: Normal Inspection, Normal Range of Motion, Non-Tender, No Pedal Edema, Normal Capillary Refill Skin: Warm, Dry, Intact Neurological: No New Focal Deficit Psy/Mental Status: Alert, Normal Affect, Normal Mood - Problem List & Annotations (1) Back pain SNOMED Code(s): 503733407 Code(s): M54.9 - DORSALGIA, UNSPECIFIED Status: Acute Current Visit: Yes - Problem List Review Problem List Initiated/Reviewed/Updated: Yes - Assessment Assessment:: Lower back pain patient will have an MRI in the morning - Plan Plan:: Patient was admitted for pain control MRI to be done Monday continue pain control
[2017-07-02] MEDS: atorvaSTATin 40 MG Tab PO SCH (19:31)
[2017-07-02] MEDS: Lisinopril 20 MG Tab PO SCH (19:31)
[2017-07-02] MEDS: traZODone 50 MG Tab PO SCH (19:31)
[2017-07-03] MEDS: Venlafaxine 75 MG Cap.ER PO SCH (07:47)
[2017-07-03] MEDS: Levothyroxine 100 MCG Tab PO SCH (07:47)
[2017-07-03] MEDS: Magnesium Oxide 400 MG Tab PO SCH (07:48)
[2017-07-03] MEDS: Clopidogrel 75 MG Tab PO SCH (07:48)
[2017-07-03] MEDS: Folic Acid 1 MG Tab PO SCH (07:48)
[2017-07-03] MEDS: Metoprolol Succinate 25 MG Tab.ER PO SCH (07:49)
[2017-07-03] MEDS: Pantoprazole 40 MG Tab.CR PO SCH (07:49)
[2017-07-03] MEDS: Cyanocobalamin (Vitamin B12) 1,000 MCG Tab PO SCH (07:50)
[2017-07-03] MEDS: buPROPion 150 MG Tab.ER PO SCH (07:50)
[2017-07-03] MEDS: NICOTINE 2MG GUM PO PRN ×3 (08:45→19:28)
[2017-07-03] MEDS: atorvaSTATin 40 MG Tab PO SCH (19:22)
[2017-07-03] MEDS: Lisinopril 20 MG Tab PO SCH (19:22)
[2017-07-03] MEDS: traZODone 50 MG Tab PO SCH (19:23)
[2017-07-04] MEDS: Levothyroxine 100 MCG Tab PO SCH (07:44)
[2017-07-04] MEDS: Folic Acid 1 MG Tab PO SCH (07:45)
[2017-07-04] MEDS: Venlafaxine 75 MG Cap.ER PO SCH (07:45)
[2017-07-04] MEDS: Pantoprazole 40 MG Tab.CR PO SCH (07:46)
[2017-07-04] MEDS: Magnesium Oxide 400 MG Tab PO SCH (07:46)
[2017-07-04] MEDS: Clopidogrel 75 MG Tab PO SCH (07:46)
[2017-07-04] MEDS: Cyanocobalamin (Vitamin B12) 1,000 MCG Tab PO SCH (07:47)
[2017-07-04] MEDS: Metoprolol Succinate 25 MG Tab.ER PO SCH (07:47)
[2017-07-04] MEDS: buPROPion 150 MG Tab.ER PO SCH (07:47)
[2017-07-04] MEDS: Lisinopril 20 MG Tab PO SCH (19:36)
[2017-07-04] MEDS: atorvaSTATin 40 MG Tab PO SCH (19:36)
[2017-07-04] MEDS: traZODone 50 MG Tab PO SCH (19:37)
[2017-07-04] MEDS: NICOTINE 2MG GUM PO PRN (19:38)
[2017-07-05] MEDS: Levothyroxine 100 MCG Tab PO SCH (07:41)
[2017-07-05] MEDS: Venlafaxine 75 MG Cap.ER PO SCH (07:42)
[2017-07-05] MEDS: Folic Acid 1 MG Tab PO SCH (07:43)
[2017-07-05] MEDS: Clopidogrel 75 MG Tab PO SCH (07:43)
[2017-07-05] MEDS: Magnesium Oxide 400 MG Tab PO SCH (07:43)
[2017-07-05] MEDS: Pantoprazole 40 MG Tab.CR PO SCH (07:44)
[2017-07-05] MEDS: Cyanocobalamin (Vitamin B12) 1,000 MCG Tab PO SCH (07:45)
[2017-07-05] MEDS: Metoprolol Succinate 25 MG Tab.ER PO SCH (07:45)
[2017-07-05] MEDS: buPROPion 150 MG Tab.ER PO SCH (08:01)
[2017-07-05] MEDS: NICOTINE 2MG GUM PO PRN ×4 (09:20→18:36)
[2017-07-05] MEDS: atorvaSTATin 40 MG Tab PO SCH (19:35)
[2017-07-05] MEDS: Lisinopril 20 MG Tab PO SCH (19:35)
[2017-07-05] MEDS: traZODone 50 MG Tab PO SCH (19:36)
[2017-07-06] MEDS: Levothyroxine 100 MCG Tab PO SCH (07:55)
[2017-07-06] MEDS: Venlafaxine 75 MG Cap.ER PO SCH (07:55)
[2017-07-06] MEDS: Folic Acid 1 MG Tab PO SCH (07:56)
[2017-07-06] MEDS: Magnesium Oxide 400 MG Tab PO SCH (07:56)
[2017-07-06] MEDS: Pantoprazole 40 MG Tab.CR PO SCH (07:57)
[2017-07-06] MEDS: Clopidogrel 75 MG Tab PO SCH (07:57)
[2017-07-06] MEDS: buPROPion 150 MG Tab.ER PO SCH (07:58)
[2017-07-06] MEDS: Cyanocobalamin (Vitamin B12) 1,000 MCG Tab PO SCH (07:58)
[2017-07-06] MEDS: Metoprolol Succinate 25 MG Tab.ER PO SCH (07:58)
[2017-07-06] MEDS: NICOTINE 2MG GUM PO PRN ×6 (07:59→21:12)
--- NOTE | 2017-07-06 13:00 | PCM.SN ---
- Free Text/Narrative Note: Discussed in clinical staff rounds that would appeared to be seizure-like activity, glassy eyed with occasional tremor of the extremity, discussed per staff and family members. There was discussion on medications with slight confusion as records were obtained from psychiatric services for clarification. With this type of activity we will attempt to decrease and wean off Wellbutrin as would be a direct contraindication for seizure/seizure activity. We'll titrate down ordering for tomorrow going to 150 mg Wellbutrin XL on a daily basis, for the next few days and will reevaluate Monday for any change in appearance, mentation, or alleged seizure activity that is been witnessed.
[2017-07-06] MEDS: atorvaSTATin 40 MG Tab PO SCH (19:38)
[2017-07-06] MEDS: Lisinopril 20 MG Tab PO SCH (19:39)
[2017-07-06] MEDS: traZODone 50 MG Tab PO SCH (19:42)
[2017-07-07] MEDS: Levothyroxine 100 MCG Tab PO SCH (08:22)
[2017-07-07] MEDS: Venlafaxine 75 MG Cap.ER PO SCH (08:22)
[2017-07-07] MEDS: Folic Acid 1 MG Tab PO SCH (08:23)
[2017-07-07] MEDS: Magnesium Oxide 400 MG Tab PO SCH (08:23)
[2017-07-07] MEDS: Clopidogrel 75 MG Tab PO SCH (08:23)
[2017-07-07] MEDS: Metoprolol Succinate 25 MG Tab.ER PO SCH (08:24)
[2017-07-07] MEDS: Pantoprazole 40 MG Tab.CR PO SCH (08:24)
[2017-07-07] MEDS: Cyanocobalamin (Vitamin B12) 1,000 MCG Tab PO SCH (08:25)
[2017-07-07] MEDS: buPROPion 150 MG Tab.ER PO SCH (08:25)
[2017-07-07] MEDS: traZODone 50 MG Tab PO SCH (19:27)
[2017-07-07] MEDS: atorvaSTATin 40 MG Tab PO SCH (19:27)
[2017-07-07] MEDS: NICOTINE 2MG GUM PO PRN (19:28)
[2017-07-07] MEDS: Lisinopril 20 MG Tab PO SCH (19:28)
[2017-07-08] MEDS: Levothyroxine 100 MCG Tab PO SCH (08:16)
[2017-07-08] MEDS: Venlafaxine 75 MG Cap.ER PO SCH (08:17)
[2017-07-08] MEDS: Magnesium Oxide 400 MG Tab PO SCH (08:18)
[2017-07-08] MEDS: Folic Acid 1 MG Tab PO SCH (08:18)
[2017-07-08] MEDS: Clopidogrel 75 MG Tab PO SCH (08:18)
[2017-07-08] MEDS: buPROPion 150 MG Tab.ER PO SCH (08:19)
[2017-07-08] MEDS: Cyanocobalamin (Vitamin B12) 1,000 MCG Tab PO SCH (08:19)
[2017-07-08] MEDS: Pantoprazole 40 MG Tab.CR PO SCH (08:19)
[2017-07-08] MEDS: Metoprolol Succinate 25 MG Tab.ER PO SCH (08:23)
[2017-07-08] MEDS: NICOTINE 2MG GUM PO PRN ×2 (08:23→20:06)
[2017-07-08] MEDS: Lisinopril 20 MG Tab PO SCH (20:06)
[2017-07-08] MEDS: atorvaSTATin 40 MG Tab PO SCH (20:06)
[2017-07-08] MEDS: traZODone 50 MG Tab PO SCH (20:07)
[2017-07-09] MEDS: Levothyroxine 100 MCG Tab PO SCH (08:06)
[2017-07-09] MEDS: Venlafaxine 75 MG Cap.ER PO SCH (08:07)
[2017-07-09] MEDS: Folic Acid 1 MG Tab PO SCH (08:08)
[2017-07-09] MEDS: Magnesium Oxide 400 MG Tab PO SCH (08:08)
[2017-07-09] MEDS: Clopidogrel 75 MG Tab PO SCH (08:08)
[2017-07-09] MEDS: Pantoprazole 40 MG Tab.CR PO SCH (08:09)
[2017-07-09] MEDS: Metoprolol Succinate 25 MG Tab.ER PO SCH (08:11)
[2017-07-09] MEDS: buPROPion 150 MG Tab.ER PO SCH (08:12)
[2017-07-09] MEDS: Cyanocobalamin (Vitamin B12) 1,000 MCG Tab PO SCH (08:12)
[2017-07-09] MEDS: NICOTINE 2MG GUM PO PRN ×3 (08:13→19:49)
[2017-07-09] MEDS: traZODone 50 MG Tab PO SCH (19:47)
[2017-07-09] MEDS: atorvaSTATin 40 MG Tab PO SCH (19:48)
[2017-07-09] MEDS: Lisinopril 20 MG Tab PO SCH (19:48)
[2017-07-10] MEDS: Venlafaxine 75 MG Cap.ER PO SCH (08:18)
[2017-07-10] MEDS: Folic Acid 1 MG Tab PO SCH (08:18)
[2017-07-10] MEDS: Levothyroxine 100 MCG Tab PO SCH (08:18)
[2017-07-10] MEDS: Magnesium Oxide 400 MG Tab PO SCH (08:19)
[2017-07-10] MEDS: Clopidogrel 75 MG Tab PO SCH (08:19)
[2017-07-10] MEDS: Cyanocobalamin (Vitamin B12) 1,000 MCG Tab PO SCH (08:19)
[2017-07-10] MEDS: Pantoprazole 40 MG Tab.CR PO SCH (08:19)
[2017-07-10] MEDS: buPROPion 150 MG Tab.ER PO SCH (08:20)
[2017-07-10] MEDS: NICOTINE 2MG GUM PO PRN ×4 (08:20→20:32)
[2017-07-10] MEDS: Metoprolol Succinate 25 MG Tab.ER PO SCH (08:23)
[2017-07-10] MEDS: Lisinopril 20 MG Tab PO SCH (20:30)
[2017-07-10] MEDS: traZODone 50 MG Tab PO SCH (20:30)
[2017-07-10] MEDS: atorvaSTATin 40 MG Tab PO SCH (20:31)
[2017-07-11] MEDS: Levothyroxine 100 MCG Tab PO SCH (08:02)
[2017-07-11] MEDS: Venlafaxine 75 MG Cap.ER PO SCH (08:03)
[2017-07-11] MEDS: Magnesium Oxide 400 MG Tab PO SCH (08:04)
[2017-07-11] MEDS: Folic Acid 1 MG Tab PO SCH (08:04)
[2017-07-11] MEDS: Clopidogrel 75 MG Tab PO SCH (08:04)
[2017-07-11] MEDS: Cyanocobalamin (Vitamin B12) 1,000 MCG Tab PO SCH (08:05)
[2017-07-11] MEDS: Pantoprazole 40 MG Tab.CR PO SCH (08:05)
[2017-07-11] MEDS: buPROPion 150 MG Tab.ER PO SCH (08:06)
[2017-07-11] MEDS: Metoprolol Succinate 25 MG Tab.ER PO SCH (08:10)
[2017-07-11] MEDS: NICOTINE 2MG GUM PO PRN (13:48)
[2017-07-11] MEDS: atorvaSTATin 40 MG Tab PO SCH (20:11)
[2017-07-11] MEDS: Lisinopril 20 MG Tab PO SCH (20:11)
[2017-07-11] MEDS: traZODone 50 MG Tab PO SCH (20:12)
[2017-07-12] MEDS: Levothyroxine 100 MCG Tab PO SCH (07:55)
[2017-07-12] MEDS: Venlafaxine 75 MG Cap.ER PO SCH (07:56)
[2017-07-12] MEDS: Clopidogrel 75 MG Tab PO SCH (07:57)
[2017-07-12] MEDS: Magnesium Oxide 400 MG Tab PO SCH (07:57)
[2017-07-12] MEDS: Folic Acid 1 MG Tab PO SCH (07:57)
[2017-07-12] MEDS: Pantoprazole 40 MG Tab.CR PO SCH (07:58)
[2017-07-12] MEDS: Cyanocobalamin (Vitamin B12) 1,000 MCG Tab PO SCH (07:58)
[2017-07-12] MEDS: buPROPion 150 MG Tab.ER PO SCH (07:59)
[2017-07-12] MEDS: Metoprolol Succinate 25 MG Tab.ER PO SCH (08:08)
[2017-07-12] MEDS: NICOTINE 2MG GUM PO PRN ×3 (08:46→19:31)
[2017-07-12] MEDS: Lisinopril 20 MG Tab PO SCH (19:32)
[2017-07-12] MEDS: traZODone 50 MG Tab PO SCH (19:32)
[2017-07-12] MEDS: atorvaSTATin 40 MG Tab PO SCH (19:32)
[2017-07-13] MEDS: Venlafaxine 75 MG Cap.ER PO SCH (08:38)
[2017-07-13] MEDS: Magnesium Oxide 400 MG Tab PO SCH (08:38)
[2017-07-13] MEDS: Folic Acid 1 MG Tab PO SCH (08:38)
[2017-07-13] MEDS: Levothyroxine 100 MCG Tab PO SCH (08:38)
[2017-07-13] MEDS: Cyanocobalamin (Vitamin B12) 1,000 MCG Tab PO SCH (08:39)
[2017-07-13] MEDS: Clopidogrel 75 MG Tab PO SCH (08:39)
[2017-07-13] MEDS: buPROPion 150 MG Tab.ER PO SCH (08:39)
[2017-07-13] MEDS: Pantoprazole 40 MG Tab.CR PO SCH (08:39)
[2017-07-13] MEDS: Metoprolol Succinate 25 MG Tab.ER PO SCH (08:39)
--- NOTE | 2017-07-13 13:00 | PCM.PN ---
- General Info Date of Service: 07/13/17 Functional Status: Reports: Pain Controlled - Review of Systems General: Reports: No Symptoms HEENT: Reports: No Symptoms Pulmonary: Reports: No Symptoms, Cough (Occasional) Cardiovascular: Reports: No Symptoms Gastrointestinal: Reports: No Symptoms Genitourinary: Reports: No Symptoms Musculoskeletal: Reports: Other (Weakness/coordination) Skin: Reports: No Symptoms Neurological: Reports: Difficulty Walking (At times), Weakness Psychiatric: Reports: No Symptoms - Patient Data Vitals - Most Recent: Last Vital Signs Temp 37.3 C 07/13/17 08:00 Pulse 86 07/13/17 08:00 Resp 18 07/13/17 08:00 BP 113/75 07/13/17 08:00 Pulse Ox 95 07/13/17 08:00 Weight - Most Recent: 85.91 kg I&O - Last 24 Hours: Intake & Output 07/12/17 07/13/17 07/13/17 22:59 06:59 14:59 Intake Total 180 Balance 180 Med Orders - Current: Current Medications Acetaminophen (Tylenol) 650 mg PO Q4H PRN PRN Reason: Pain/Fever Atorvastatin Calcium (Lipitor) 40 mg PO BEDTIME [facility] Last Admin: 07/12/17 19:32 Dose: 40 mg Bupropion HCl (Wellbutrin Xl) 150 mg PO DAILY [facility] Last Admin: 07/13/17 08:39 Dose: Not Given Clopidogrel Bisulfate (Plavix) 75 mg PO DAILY [facility] Last Admin: 07/13/17 08:39 Dose: Not Given Cyanocobalamin (Vitamin B12) 1,000 mcg PO DAILY [facility] Last Admin: 07/13/17 08:39 Dose: Not Given Folic Acid (Folic Acid) 2 mg PO DAILY [facility] Last Admin: 07/13/17 08:38 Dose: Not Given Levothyroxine Sodium (Synthroid) 100 mcg PO ACBREAKFAST [facility] Last Admin: 07/13/17 08:38 Dose: Not Given Lisinopril (Prinivil) 20 mg PO BEDTIME [facility] Last Admin: 07/12/17 19:32 Dose: 20 mg Magnesium Oxide (Magnesium Oxide) 400 mg PO DAILY [facility] Last Admin: 07/13/17 08:38 Dose: Not Given Metoprolol Succinate (Toprol Xl) 25 mg PO DAILY [facility] Last Admin: 07/13/17 08:39 Dose: Not Given Nicotine 2mg Gum 1 each PO ASDIRECTED PRN PRN Reason: TOBACCO CESSATION Last Admin: 07/12/17 19:31 Dose: 1 each Pantoprazole Sodium (Protonix) 40 mg PO DAILY [facility] Last Admin: 07/13/17 08:39 Dose: Not Given Trazodone HCl (Trazodone) 25 mg PO BEDTIME [facility] Last Admin: 07/12/17 19:32 Dose: 25 mg Venlafaxine HCl (Effexor Xr) 225 mg PO DAILY [facility] Last Admin: 07/13/17 08:38 Dose: Not Given Discontinued Medications Bupropion HCl (Wellbutrin Xl) 300 mg PO DAILY [facility] Last Admin: 07/06/17 07:58 Dose: 300 mg Iopamidol (Isovue-300 (61%)) 100 ml IVPUSH ONETIME ONE Stop: 06/22/17 09:32 Last Admin: 06/22/17 12:28 Dose: 100 ml Levothyroxine Sodium (Levothyroxine) 75 mcg PO ACBREAKFAST [facility] - Exam General: Alert, Oriented HEENT: Pupils Equal, Pupils Reactive, EOMI, Mucous Membr. Moist/[place] Neck: Supple Lungs: Rhonchi (Clears with deep breath and cough question resignation from laryngeal region.) Cardiovascular: Regular Rate, Regular Rhythm, No Murmurs GI/Abdominal Exam: Normal Bowel Sounds, Soft, Non-Tender (Male) Exam: Deferred Back Exam: Normal Inspection (Small retention cyst/sebaceous cyst mid upper thorax no evidence of infection) Extremities: Normal Inspection, Normal Range of Motion, No Pedal Edema, Normal Capillary Refill Skin: Warm, Dry Neurological: No New Focal Deficit Psy/Mental Status: Alert, Normal Affect, Normal Mood - Problem List & Annotations (1) COPD (chronic obstructive pulmonary disease) SNOMED Code(s): 05273645 Code(s): J44.9 - CHRONIC OBSTRUCTIVE PULMONARY DISEASE, UNSPECIFIED Status : Acute Priority: Medium Current Visit: Yes Qualifiers: COPD type: COPD with acute lower respiratory infection Qualified Code(s): J44.0 - Chronic obstructive pulmonary disease with acute lower respiratory infection (2) Anemia SNOMED Code(s): 357280539 Code(s): D64.9 - ANEMIA, UNSPECIFIED Status: Acute Priority: High Current Visit: Yes Onset Date: 05/18/17 Qualifiers: Anemia type: B12 deficiency Vitamin B12 deficiency anemia type: other B12 deficiency Qualified Code(s): D51.8 - Other vitamin B12 deficiency anemias (3) Failure to thrive SNOMED Code(s): 42809134 Code(s): UYK3485 - Status: Acute Priority: High Current Visit: Yes Qualifiers: Failure to thrive age range: in adult Qualified Code(s): R62.7 - Adult failure to thrive (4) Generalized weakness SNOMED Code(s): 59546021 Code(s): R53.1 - WEAKNESS Status: Acute Current Visit: No (5) History of CVA with residual deficit SNOMED Code(s): 134117523 Code(s): I69.30 - UNSPECIFIED SEQUELAE OF CEREBRAL INFARCTION Status: Chronic Priority: High Current Visit: Yes (6) Renal insufficiency SNOMED Code(s): 216548456 Code(s): N28.9 - DISORDER OF KIDNEY AND URETER, UNSPECIFIED Status: Chronic Priority: Medium Current Visit: Yes (7) Snuff user SNOMED Code(s): 765415255 Code(s): Z78.9 - OTHER SPECIFIED HEALTH STATUS Status: Chronic Priority: Medium Current Visit: No Annotation/Comment:: Continues use of snuff - Problem List Review Problem List Initiated/Reviewed/Updated: Yes - Assessment Assessment:: Lower back pain patient will have an MRI in the morning - Plan Plan:: Patient was admitted for pain control MRI to be done Monday continue pain control After evaluation today with some noted hesitation in balance although improved and the fact that he is scheduled for a neurology follow-up in the morning discharge will be postponed in the event neurology has any significant change recommendations or further input towards ongoing treatment. 50 considerations or high priority in with a number of falls documented in the last week but noted improvement in the gaze questionable seizure activity with a 300 mg Wellbutrin that was reduced to 150 we will await neurology appointment outcome for altering plan of care adjusting treatment modalities or discharging home on the after returning from neurology appointment. and staff climate scientist wholehearted agreement with this, Chris is somewhat hesitant as he would prefer being home despite and on safety factors and concerns.
[2017-07-13 14:47] LABS: CHLORIDE,CL 107 mmol/L (98-107); SODIUM,NA 141 mmol/L (136-145)
[2017-07-13] MEDS: NICOTINE 2MG GUM PO PRN (16:49)
[2017-07-13] MEDS: Lisinopril 20 MG Tab PO SCH (20:20)
[2017-07-13] MEDS: traZODone 50 MG Tab PO SCH (20:20)
[2017-07-13] MEDS: atorvaSTATin 40 MG Tab PO SCH (20:20)
[2017-07-14] MEDS: Levothyroxine 100 MCG Tab PO SCH (06:32)
[2017-07-14] MEDS: NICOTINE 2MG GUM PO PRN (06:51)
[2017-07-14] MEDS: Venlafaxine 75 MG Cap.ER PO SCH (06:59)
[2017-07-14] MEDS: Folic Acid 1 MG Tab PO SCH (06:59)
[2017-07-14] MEDS: Clopidogrel 75 MG Tab PO SCH (07:00)
[2017-07-14] MEDS: buPROPion 150 MG Tab.ER PO SCH (07:00)
[2017-07-14] MEDS: Magnesium Oxide 400 MG Tab PO SCH (07:00)
[2017-07-14] MEDS: Metoprolol Succinate 25 MG Tab.ER PO SCH (07:00)
[2017-07-14] MEDS: Cyanocobalamin (Vitamin B12) 1,000 MCG Tab PO SCH (07:00)
[2017-07-14 07:01] VITALS: BP 100/72
[2017-07-14] MEDS: Pantoprazole 40 MG Tab.CR PO SCH (07:01)
--- NOTE | 2017-07-14 16:00 | PCM.DCSUM1 ---
Discharge Summary - Hospital Course Free Text/Narrative:: Underwent extensive physical therapy with improvement to balance and gait throughout his stay. Family related atypical gaze seizure-like potential at which time we decreased the appropriate from previous 300 mg to 150. We'll continue on discharge 150 every other day until prescription exhausted. Underwent neurology consult today with EEG of which is yet to be reported as well as other reports from neurology department. Laboratory analysis repeated showed B12 level to be high normal range, CBC improved, chronic renal insufficiency improved/resolved on yesterday's creatinine reading. Was encouraged safety as a priority for all position changes ambulatory, SIDE of his house when returning home. Advised no operation of motor vehicles secondary of risk factors and should limit leaving the house without supervision due to fall risk and environmental exposure. Was advised to follow-up as needed post discharge, call if questions. - Discharge Data Discharge Date: 07/14/17 Discharge Disposition: Home, Self-Care 01 Condition: Good - Discharge Diagnosis/Problem(s) (1) COPD (chronic obstructive pulmonary disease) SNOMED Code(s): 00535439 ICD Code: J44.9 - CHRONIC OBSTRUCTIVE PULMONARY DISEASE, UNSPECIFIED Status : Acute Priority: Medium Current Visit: Yes Qualifiers: COPD type: COPD with acute lower respiratory infection Qualified Code(s): J44.0 - Chronic obstructive pulmonary disease with acute lower respiratory infection (2) Anemia SNOMED Code(s): 727063587 ICD Code: D64.9 - ANEMIA, UNSPECIFIED Status: Acute Priority: High Current Visit: Yes Onset Date: 05/18/17 Qualifiers: Anemia type: B12 deficiency Vitamin B12 deficiency anemia type: other B12 deficiency Qualified Code(s): D51.8 - Other vitamin B12 deficiency anemias (3) Failure to thrive SNOMED Code(s): 62551609 ICD Code: [id number] - Status: Acute Priority: High Current Visit: Yes Qualifiers: Failure to thrive age range: in adult Qualified Code(s): R62.7 - Adult failure to thrive (4) Generalized weakness SNOMED Code(s): 26396028 ICD Code: R53.1 - WEAKNESS Status: Acute Current Visit: No (5) History of CVA with residual deficit SNOMED Code(s): 437911229 ICD Code: I69.30 - UNSPECIFIED SEQUELAE OF CEREBRAL INFARCTION Status: Chronic Priority: High Current Visit: Yes (6) Renal insufficiency SNOMED Code(s): 926630800 ICD Code: N28.9 - DISORDER OF KIDNEY AND URETER, UNSPECIFIED Status: Chronic Priority: Medium Current Visit: Yes (7) Snuff user SNOMED Code(s): 059788885 ICD Code: Z78.9 - OTHER SPECIFIED HEALTH STATUS Status: Chronic Priority : Medium Current Visit: No Problem Details: Continues use of snuff. Nicotine gum ordered. - Patient Summary/Data Consults: Consultations 06/22/17 05:11 OT Evaluation and Treatment [CONS] Routine PT Evaluation and Treatment [CONS] Routine - Patient Instructions Diet: Usual Diet as Tolerated Activity: As Tolerated (Up with Assistance due to fall risk ) Driving: Do Not Drive (Do not operate motorized vehicles ) Showering/Bathing: May Shower Other/Special Instructions: Safety Concerns are a priority. Please get up with assistance and ambulate with walker. Follow neurology recommendations per appointment on 07-14-17. - Discharge Plan Prescriptions/Med Rec: buPROPion [Wellbutrin XL] 150 mg PO Q48H #7 tab.er Nicotine Polacrilex [Nicotine Gum] 2 mg BC ASDIRECTED PRN #1 box PRN Reason: smoking cessation Home Medications: Home Meds Pantoprazole [ProTONIX] 40 mg PO DAILY 07/22/14 [History] Clopidogrel Bisulfate [Clopidogrel] 75 mg PO DAILY 04/15/17 [History] Levothyroxine Sodium [Synthroid] 75 mcg PO ACBREAKFAST 04/15/17 [History] Metoprolol Succinate 25 mg PO DAILY 04/15/17 [History] Venlafaxine HCl [Venlafaxine ER] 225 mg PO DAILY 04/15/17 [History] atorvaSTATin [Lipitor] 40 mg PO BEDTIME 04/15/17 [History] traZODone 50 mg PO BEDTIME 04/15/17 [History] Tamsulosin [Flomax] 0.4 mg PO BEDTIME #0 04/17/17 [Rx] Lisinopril 20 mg PO BEDTIME 05/17/17 [History] Cyanocobalamin (Vitamin B-12) [Vitamin B-12] 1,000 mcg PO DAILY 06/04/17 [ History] Folic Acid 2 tab PO DAILY 06/04/17 [History] Magnesium Gluconate 500 mg PO DAILY 06/04/17 [History] Acetaminophen [Tylenol] 650 mg PO Q4H PRN tablet 07/14/17 [Rx] Nicotine Polacrilex [Nicotine Gum] 2 mg BC ASDIRECTED PRN #1 box 07/14/17 [Rx] buPROPion [Wellbutrin XL] 150 mg PO Q48H #7 tab.er 07/14/17 [Rx] Patient Handouts: Smokeless Tobacco Use, Chronic Obstructive Pulmonary Disease Exacerbation, [id number], Fall Prevention in the Home, [id number], Failure to Thrive, Adult, [id number], Stroke Prevention, [id number] Referrals: Suresh Grullon STUDIO OPERATOR [Nurse Practitioner] - (Follow up at [facility] as needed) Neurology, Appointment [Other] (Follow up with Neurology as indicated from appointment on 07-14-17) - Discharge Summary/Plan Comment DC Time >30 min.: Yes - General Info Date of Service: 07/14/17 - Review of Systems Systems Review Comment: Please see ROS from 07-13-2017 - Patient Data Vitals - Most Recent: Last Vital Signs Temp 35.9 C 07/14/17 07:00 Pulse 89 07/14/17 07:00 Resp 16 07/14/17 07:00 BP 100/72 07/14/17 07:00 Pulse Ox 97 07/14/17 07:00 Weight - Most Recent: 85.91 kg Med Orders - Current: Current Medications Acetaminophen (Tylenol) 650 mg PO Q4H PRN PRN Reason: Pain/Fever Atorvastatin Calcium (Lipitor) 40 mg PO BEDTIME [facility] Last Admin: 07/13/17 20:20 Dose: 40 mg Bupropion HCl (Wellbutrin Xl) 150 mg PO DAILY [facility] Last Admin: 07/14/17 07:00 Dose: 150 mg Clopidogrel Bisulfate (Plavix) 75 mg PO DAILY [facility] Last Admin: 07/14/17 07:00 Dose: 75 mg Cyanocobalamin (Vitamin B12) 1,000 mcg PO DAILY [facility] Last Admin: 07/14/17 07:00 Dose: 1,000 mcg Folic Acid (Folic Acid) 2 mg PO DAILY [facility] Last Admin: 07/14/17 06:59 Dose: 2 mg Levothyroxine Sodium (Synthroid) 100 mcg PO ACBREAKFAST [facility] Last Admin: 07/14/17 06:32 Dose: 100 mcg Lisinopril (Prinivil) 20 mg PO BEDTIME [facility] Last Admin: 07/13/17 20:20 Dose: 20 mg Magnesium Oxide (Magnesium Oxide) 400 mg PO DAILY [facility] Last Admin: 07/14/17 07:00 Dose: 400 mg Metoprolol Succinate (Toprol Xl) 25 mg PO DAILY [facility] Last Admin: 07/14/17 07:00 Dose: 25 mg Nicotine 2mg Gum 1 each PO ASDIRECTED PRN PRN Reason: TOBACCO CESSATION Last Admin: 07/14/17 06:51 Dose: 1 each Pantoprazole Sodium (Protonix) 40 mg PO DAILY [facility] Last Admin: 07/14/17 07:01 Dose: 40 mg Trazodone HCl (Trazodone) 25 mg PO BEDTIME [facility] Last Admin: 07/13/17 20:20 Dose: 25 mg Venlafaxine HCl (Effexor Xr) 225 mg PO DAILY [facility] Last Admin: 07/14/17 06:59 Dose: 225 mg Discontinued Medications Bupropion HCl (Wellbutrin Xl) 300 mg PO DAILY [facility] Last Admin: 07/06/17 07:58 Dose: 300 mg Iopamidol (Isovue-300 (61%)) 100 ml IVPUSH ONETIME ONE Stop: 06/22/17 09:32 Last Admin: 06/22/17 12:28 Dose: 100 ml Levothyroxine Sodium (Levothyroxine) 75 mcg PO ACBREAKFAST [facility] - Exam Physical Findings Comments:: Please see exam from 07-13-17 *Q Meaningful Use (DIS) - VTE *Q VTE Criteria *Q: - Stroke *Q Stroke Criteria *Q: - AMI *Q AMI Criteria *Q:
== END 2017-07-14 18:10 | disposition home or self-care (01) | DRG 57 ==
LOC: LL.SWG 04:15
PROVIDERS: ADMIT Family Medicine; ATTEND Family Medicine
DX: I69.351 Hemiplegia and hemiparesis following cerebral infarction affecting right dominant side (principal); I69.398 Other sequelae of cerebral infarction; R53.1 Weakness; M54.5 Low back pain; R62.7 Adult failure to thrive; R56.9 Unspecified convulsions; K02.9 Dental caries, unspecified; D64.9 Anemia, unspecified; J44.9 Chronic obstructive pulmonary disease, unspecified; R29.6 Repeated falls; E78.5 Hyperlipidemia, unspecified; E88.09 Other disorders of plasma-protein metabolism, not elsewhere classified; I10 Essential (primary) hypertension; E03.9 Hypothyroidism, unspecified; F41.8 Other specified anxiety disorders; K21.9 Gastro-esophageal reflux disease without esophagitis; N28.9 Disorder of kidney and ureter, unspecified; Z72.0 Tobacco use; Z88.1 Allergy status to other antibiotic agents; Z79.899 Other long term (current) drug therapy; H91.90 Unspecified hearing loss, unspecified ear; E78.00 Pure hypercholesterolemia, unspecified; N40.0 Benign prostatic hyperplasia without lower urinary tract symptoms
CPT/HCPCS: 36415; 71260; 80048; 80053; 82607; 83735; 84550; 85025; 97110-GO; 97110-GP; 97112-GP; 97116-GP; 97165-GO; 97530-GO; 97530-GP; 97535-GO; A9270-GY; Q9967